=== PATIENT | male | born 1970 | race Caucasian/White ===

== ENCOUNTER 2018-03-26 00:20 | Inpatient (IN) | payer OTHER ==
[2018-03-26] MEDS ORDERED: PROPOFOL 1,000 MG in EMPTY BAG 1 BAG IV ONE (00:26)
[2018-03-26] MEDS ORDERED: ASPIRIN 300 MG SUPP RECTAL STA (00:29)
[2018-03-26] MEDS ORDERED: ROCURONIUM BROMIDE 10 MG/ML 10 ML VIAL IV STA (00:37)
[2018-03-26 00:53] LABS: Basophils % (A) 0 %; Eosinophils # (A) 0.1 k/uL (0-0.7); Eosinophils % (A) 1 %; HCT 44.6 % (39.0-53.0); HGB 14.3 gm/dL (13.0-17.5); Lymphocytes % (A) 23 %; MCH 27.8 pg (25.0-35.0); MCV 86.8 fL (80.0-100.0); Mean Platelet Volume 7.7; Monocytes # (A) 0.6 k/uL (0-1.0); Monocytes % (A) 5 %; Neutrophils # (A) 8.7 k/uL (1.3-7.7); Neutrophils % (A) 69 %; Platelet Count 231 k/uL (150-450); RBC 5.14 m/uL (4.30-5.90); RDW 13.5 % (11.5-15.5); WBC 12.6 k/uL (3.8-10.6)
[2018-03-26] MEDS ORDERED: HEPARIN SODIUM,PORCINE 5,000 UNIT/ML 1 ML VIAL IV STA (00:56)
[2018-03-26 01:01] LABS: INR 1.1 (<1.2); Partial Thromboplastin Time 23.2 sec (22.0-30.0); Prothrombin Time 10.7 sec (9.0-12.0)
[2018-03-26 01:08] LABS: ABG Base Excess -7.6 mmol/L; ABG HCO3 21 mmol/L (21-25); ABG Oxygen Saturation 94.5 % (94-97); ABG PCO2 57 mmHg (35-45); ABG PO2 89 mmHg (83-108); ABG TCO2 23 mmol/L (19-24)
[2018-03-26 01:10] LABS: ABG PH 7.17 (7.35-7.45)
[2018-03-26 01:10] LABS: Albumin 3.8 g/dL (3.5-5.0); Calcium 8.9 mg/dL (8.4-10.2); Potassium 4.3 mmol/L (3.5-5.1); Total Bilirubin 0.2 mg/dL (0.2-1.3); Total Protein 6.2 g/dL (6.3-8.2)
--- NOTE | 2018-03-26 01:18 | ED ---
CPR HPI - General Chief Complaint: Cardiac Arrest/CPR Stated Complaint: Cardiac Arrest Source: EMS Mode of arrival: EMS Limitations: no limitations - History of Present Illness Initial Comments: Dictation was produced using [employer] dictation software. please excuse any grammatical, word or spelling errors. Chief Complaint: 48-year-old male with unknown past medical history presents after cardiac arrest with return of spontaneous circulation. History of Present Illness: Patient is a 48-year-old male with unknown past medical history presents after cardiac arrest. Patient was en route via EMS from proximally one hour away. According to EMS patient had several minutes of down time. CPR was started by his . EMS arrived after a couple minutes and continued CPR. According to EMS patient was given 3 rounds of epi, 3 shocks and 1 dose of atropine. Patient did bradycardia down propping EMS to administer atropine. They didn't transvenously paced the patient. Patient was continued on Charlie device. Past Medical History: Unknown Past Surgical History: Unknown Social History: Unknown Family History: Unknown - Related Data Allergies Allergy/AdvReac Type Severity Reaction Status Date / Time Unable to Assess Allergy Verified 03/26/18 00:26 Review of Systems ROS Statement: Those systems with pertinent positive or pertinent negative responses have been documented in the HPI. ROS Other: All systems not noted in ROS Statement are negative. Past Medical History Past Medical History: Unable to Obtain History of Any Multi-Drug Resistant Organisms: Unobtainable Past Surgical History: Unable to Obtain Past Psychological History: Unable to Obtain Smoking Status: Unknown if ever smoked Past Alcohol Use History: Unable to Obtain Past Drug Use History: Unable to Obtain General Exam - General Exam Comments Initial Comments: Vitals: Vital signs upon arrival shows heart rate of 122, blood pressure 172/110 , O2 sat 99% with Valdo tube advanced airway. PHYSICAL EXAM: General Impression: Obtunded, agonal breathing HEENT: Normocephalic atraumatic, Valdo tube in place Cardiovascular: Tachycardic Chest: Bilateral breath sounds, with end expiratory wheezing Abdomen: Distended abdomen with tympany to percussion Musculoskeletal: Pulses present and equal in all extremities, no peripheral edema Neurological: Nondilated pupils Skin: Intact with no visualized rashes Limitations: no limitations Course Vital Signs 03/26/18 03/26/18 03/26/18 00:21 00:32 00:47 Temperature 97.0 F L Pulse Rate 130 H 122 H 125 H Respiratory 12 14 Rate Blood Pressure 207/147 172/110 138/86 O2 Sat by Pulse 95 99 99 Oximetry 03/26/18 03/26/18 03/26/18 00:53 00:57 01:08 Temperature Pulse Rate 121 H 120 H 118 H Respiratory 14 16 16 Rate Blood Pressure 119/66 120/80 116/81 O2 Sat by Pulse 94 L 99 95 Oximetry Procedures - Catheter Insertion (Urinary) Indications: monitor urine output - Intubation Time Out Performed: Yes Sedative: Propofol Mg Given: 100 Paralytic: Rocuronium Mg Given: 70 Laryngoscope: fiber optic video scope Size: 3 Assist Device Used: fiber optic device ET Tube Size: 8 ET Tube Uncuffed: No Tube Secured Depth (cm): 22 Tube Secured Location: lips Tube Placement Confirmation: visualized tube passing through cords, equal breath sounds bilaterally, no breath sounds over epigastrium, confirmation by capnometry Patient Tolerated Procedure: no complications Intubation Complications: none Medical Decision Making - Medical Decision Making ED course: 48-year-old male presents after cardiac arrest. Click or presentation consistent with V. fib arrest likely secondary to ST segment elevation [place]. Patient was resuscitated via ACLS protocol. Chest cutaneous pacer was removed patient was found to have spontaneous rhythm that was tachycardic. Stat EKG was performed showing inferior STEMI. Code STEMI and [place] was activated. Patient was given rectal aspirin. Valdo tube was removed and endotracheal intubation was performed. Discussed patient case with cardiology who recommended administering bolus heparin. More history was obtained from who states that patient had a couple seconds of down time before CPR was initiated by . Discussed plan with to take patient chronic [place] and subsequently place intensive care unit. EKG Interpretation: A 12 lead EKG was obtained. It was interpreted by myself and attending physician. There is a P wave before every QRS complex. Rate is 121. Rhythm is sinus tachycardia, ID interval 166, QRS 104, QTc 454. There is findings of inferior wall ST segment elevation [place]. Final impression: 1. Cardiac arrest, 2. Vent dependent respiratory failure, 3. ST segment elevation [place] - Lab Data Result diagrams: 03/26/18 00:20 03/26/18 00:20 Lab Results 03/26/18 03/26/18 03/26/18 Range/Units 00:20 00:20 00:20 WBC 12.6 H (3.8-10.6) k/uL RBC 5.14 (4.30-5.90) m/uL Hgb 14.3 (13.0-17.5) gm/dL Hct 44.6 (39.0-53.0) % MCV 86.8 (80.0-100.0) fL MCH 27.8 (25.0-35.0) pg MCHC 32.0 (31.0-37.0) g/dL RDW 13.5 (11.5-15.5) % Plt Count 231 (150-450) k/uL Neutrophils % 69 % Lymphocytes % 23 % Monocytes % 5 % Eosinophils % 1 % Basophils % 0 % Neutrophils # 8.7 H (1.3-7.7) k/uL Lymphocytes # 3.0 (1.0-4.8) k/uL Monocytes # 0.6 (0-1.0) k/uL Eosinophils # 0.1 (0-0.7) k/uL Basophils # 0.0 (0-0.2) k/uL PT (9.0-12.0) sec INR (<1.2) APTT (22.0-30.0) sec Sample Site ABG pH (7.35-7.45) ABG pCO2 (35-45) mmHg ABG pO2 (83-108) mmHg ABG HCO3 (21-25) mmol/L ABG Total CO2 (19-24) mmol/L ABG O2 Saturation (94-97) % ABG Base Excess mmol/L Mikey Test FiO2 % Sodium 140 (137-145) mmol/L Potassium 4.3 (3.5-5.1) mmol/L Chloride 104 (98-107) mmol/L Carbon Dioxide 18 L (22-30) mmol/L Anion Gap 18 mmol/L BUN 19 (9-20) mg/dL Creatinine 1.40 H (0.66-1.25) mg/dL Est GFR (CKD-EPI)AfAm 69 (>60 ml/min/1.73 sqM) Est GFR (CKD-EPI)NonAf 60 (>60 ml/min/1.73 sqM) Glucose 262 H (74-99) mg/dL Calcium 8.9 (8.4-10.2) mg/dL Total Bilirubin 0.2 (0.2-1.3) mg/dL AST 83 H (17-59) U/L ALT 79 H (21-72) U/L Alkaline Phosphatase 96 (38-126) U/L Total Creatine Kinase 374 H (55-170) U/L CK-MB (CK-2) 13.0 H* (0.0-2.4) ng/mL CK-MB (CK-2) Rel Index 3.5 Troponin I 0.959 H* (0.000-0.034) ng/mL Total Protein 6.2 L (6.3-8.2) g/dL Albumin 3.8 (3.5-5.0) g/dL 03/26/18 03/26/18 Range/Units 00:20 01:05 WBC (3.8-10.6) k/uL RBC (4.30-5.90) m/uL Hgb (13.0-17.5) gm/dL Hct (39.0-53.0) % MCV (80.0-100.0) fL MCH (25.0-35.0) pg MCHC (31.0-37.0) g/dL RDW (11.5-15.5) % Plt Count (150-450) k/uL Neutrophils % % Lymphocytes % % Monocytes % % Eosinophils % % Basophils % % Neutrophils # (1.3-7.7) k/uL Lymphocytes # (1.0-4.8) k/uL Monocytes # (0-1.0) k/uL Eosinophils # (0-0.7) k/uL Basophils # (0-0.2) k/uL PT 10.7 (9.0-12.0) sec INR 1.1 (<1.2) APTT 23.2 (22.0-30.0) sec Sample Site rrad ABG pH 7.17 L* (7.35-7.45) ABG pCO2 57 H (35-45) mmHg ABG pO2 89 (83-108) mmHg ABG HCO3 21 (21-25) mmol/L ABG Total CO2 23 (19-24) mmol/L ABG O2 Saturation 94.5 (94-97) % ABG Base Excess -7.6 mmol/L Mikey Test Yes FiO2 100 % Sodium (137-145) mmol/L Potassium (3.5-5.1) mmol/L Chloride (98-107) mmol/L Carbon Dioxide (22-30) mmol/L Anion Gap mmol/L BUN (9-20) mg/dL Creatinine (0.66-1.25) mg/dL Est GFR (CKD-EPI)AfAm (>60 ml/min/1.73 sqM) Est GFR (CKD-EPI)NonAf (>60 ml/min/1.73 sqM) Glucose (74-99) mg/dL Calcium (8.4-10.2) mg/dL Total Bilirubin (0.2-1.3) mg/dL AST (17-59) U/L ALT (21-72) U/L Alkaline Phosphatase (38-126) U/L Total Creatine Kinase (55-170) U/L CK-MB (CK-2) (0.0-2.4) ng/mL CK-MB (CK-2) Rel Index Troponin I (0.000-0.034) ng/mL Total Protein (6.3-8.2) g/dL Albumin (3.5-5.0) g/dL Critical Care Time Critical Care Time: Yes Total Critical Care Time: 31 Disposition Clinical Impression: Cardiac arrest, Acute myocardial infarction, Acute respiratory failure Disposition: ADMITTED IP TO THIS [facility] Condition: Critical Referrals: Tra Jeffrey DO [Primary Care Provider] - 1-2 days Decision Time: 01:40
--- NOTE | 2018-03-26 01:20 | XR ---
EXAMINATION TYPE: XR chest 1V portable DATE OF EXAM: 03/26/2018 COMPARISON: NONE HISTORY: Myocardial infarct TECHNIQUE: Single frontal view of the chest is obtained. FINDINGS: Endotracheal tube is in good position and 5 cm from the manny. There is poor inspiration. There is some mild infiltrate at the lateral left lung base. There is no definite heart failure. The re are chest leads. IMPRESSION: Poor inspiration. Infiltrate on the left side. No gross heart failure.
[2018-03-26] MEDS ORDERED: LIDOCAINE 1% INJ 10MG/ML (20 ML MDV) SQ ONE (01:28)
[2018-03-26 01:29] LABS: Troponin I 0.959 ng/mL (0.000-0.034)
[2018-03-26] MEDS ORDERED: IV FLUID CONTINUATION 1,000 ML IV ONE (01:34)
[2018-03-26] MEDS ORDERED: BIVALIRUDIN BOLUS 250 MG/50 ML IV ONE (01:42)
[2018-03-26] MEDS ORDERED: BIVALIRUDIN 250 MG in SODIUM CHLORIDE 0.9% 50 ML IV ONE (01:42)
[2018-03-26] MEDS ORDERED: IOPAMIDOL-370 125ML BTL INJ ONE (01:53)
[2018-03-26] MEDS ORDERED: NITROGLYCERIN 1000MCG/10ML SYRINGE INTRACORON ONE (01:55)
[2018-03-26] MEDS ORDERED: TICAGRELOR 90 MG TAB OG-TUBE ONE (02:15)
[2018-03-26] MEDS ORDERED: IOPAMIDOL-370 100ML BTL INJ ONE (02:16)
[2018-03-26] MEDS ORDERED: METOPROLOL TARTRATE 5 MG/5 ML VIAL IVP ONE (02:16)
[2018-03-26] MEDS ORDERED: RX INFO: IV CONTRAST WAS GIVEN 1 EACH MISC MISCELLANE PRN (02:41)
[2018-03-26] MEDS ORDERED: ZOLPIDEM 5 MG TAB PO PRN (02:41)
[2018-03-26] MEDS ORDERED: NITROGLYCERIN SL TABS 0.4 MG TAB SUBLINGUAL PRN (02:41)
[2018-03-26] MEDS ORDERED: ATROPINE SULFATE 0.1 MG/ML 10ML SYRINGE IV PRN (02:41)
[2018-03-26] MEDS ORDERED: MAG HYDROX/AL HYDROX/SIMETH 30 ML CUP PO PRN (02:41)
[2018-03-26 03:01] LABS: Glucose,Whole Blood 171 mg/dL (75-99)
[2018-03-26] MEDS ORDERED: NALOXONE 0.4 MG/ML 1 ML VIAL IV PRN (03:20)
[2018-03-26 03:24] LABS: ABG Base Excess -4.2 mmol/L; ABG HCO3 22 mmol/L (21-25); ABG Oxygen Saturation 99.6 % (94-97); ABG PCO2 45 mmHg (35-45); ABG PO2 194 mmHg (83-108); ABG TCO2 24 mmol/L (19-24)
[2018-03-26] MEDS: PROPOFOL 1,000 MG in EMPTY BAG 1 BAG IV SCH ×3 (04:31→21:34)
[2018-03-26] MEDS: SODIUM CHLORIDE 0.9% 1,000 ML IV SCH ×4 (04:31→17:17)
[2018-03-26 04:56] LABS: Appearance,Urine Cloudy (Clear); Bilirubin,Urine Negative (Negative); Blood,Urine Moderate (Negative); Color,Urine Light Yellow; Glucose,Urine (UA) 1+ (Negative); Ketones,Urine Negative (Negative); Leukocyte Esterase,Urine Negative (Negative); Mucus,Urine Rare /hpf; Nitrite,Urine Negative (Negative); PH, Urine 5.5 (5.0-8.0); Protein,Urine 2+ (Negative); RBC,Urine 30 /hpf (0-5); Specific Gravity,Urine 1.039 (1.001-1.035); Urobilinogen,Urine <2.0 mg/dL (<2.0); WBC,Urine 25 /hpf (0-5)
[2018-03-26 06:10] LABS: Basophils % (A) 0 %; Eosinophils % (A) 0 %; HCT 42.7 % (39.0-53.0); HGB 14.4 gm/dL (13.0-17.5); Lymphocytes # (A) 0.5 k/uL (1.0-4.8); Lymphocytes % (A) 3 %; MCH 28.8 pg (25.0-35.0); MCHC 33.8 g/dL (31.0-37.0); MCV 85.2 fL (80.0-100.0); Mean Platelet Volume 7.5; Monocytes # (A) 0.8 k/uL (0-1.0); Monocytes % (A) 5 %; Neutrophils % (A) 92 %; Platelet Count 224 k/uL (150-450); RBC 5.01 m/uL (4.30-5.90); RDW 13.6 % (11.5-15.5); WBC 17.5 k/uL (3.8-10.6)
[2018-03-26 06:20] LABS: Magnesium 2.2 mg/dL (1.6-2.3); Phosphorus 2.8 mg/dL (2.5-4.5); Potassium 4.8 mmol/L (3.5-5.1)
--- NOTE | 2018-03-26 06:45 | CONS ---
CONSULTATION CHIEF COMPLAINT: Cardiac arrest. This is 48-year-old gentleman with history of hypertension who had a cardiac arrest at home. His witnessed it, did CPR and I think he was down for almost 10 minutes. EMS came. He received epinephrine, was intubated, had intra-articular IV started. He also has an EJ. Brought to [facility] Emergency Room where he is intubated, vented, sedated. Remains in sinus rhythm. Blood pressure is around 110 systolic. EKG shows acute inferior wall myocardial infarction. We have been called for STEMI. I spoke to and got the information I could. MEDICATIONS: We do not know what he is on. ALLERGIES: None. FAMILY HISTORY: Negative. SOCIAL HISTORY AND REVIEW OF SYSTEMS: Unable to obtain from the patient. EXAM: He is intubated on vent, sedated. We are not able to make meaningful neurological assessment at this time. Heart rate is around 110 beats per minute. Blood pressure is 120/70, respirations 18. Chest exam reveals diminished air entry bilaterally. Heart exam reveals first and second heart sounds. No gallop. No murmur. Abdomen is soft. Exam of the extremities did not reveal any edema. EKG shows acute ST-segment elevation NM in the inferior wall. ASSESSMENT: Acute inferior wall myocardial infarction with cardiac arrest. PLAN: Will perform emergent cardiac catheterization. The patient had been down for at least 10 minutes. It is unclear how much of in the hypoxic encephalopathy he has suffered off. I discussed these issues at length with the patient and the patient's and she is agreeable to proceeding with angiogram and primary angioplasty. MMODL / IJN: [id number] /
--- NOTE | 2018-03-26 06:51 | PTCA ---
PERCUTANEOUSTRANS CORORONARY ANGIOGRAPHY DATE OF SERVICE: 03/26/2018. PROCEDURE: 1. Assessment of left ventricular pressures. LVEDP was 15, with no gradient across Aortic Valve. 2. PTCA and stenting of a totally occluded right coronary artery performed in the setting of an acute inferior SC with syncope collapse and CPR. Two drug- eluting stents were deployed. Re-perfusion was accomplished in 82 minutes. PERFORMED BY: Dr. Nirmala Meza. SEDATION: Moderate conscious sedation time was 37 minutes. Patient was administered propofol, placed on the ventilator. He was additionally given sedation and his oxygen saturation, hemodynamics and EKG were monitored closely. CLINICAL INFORMATION: Mr. Akira Pollard is a 48-year-old gentleman who has a fairly active person, does not take any medications. Sees a family physician in the [place] area. Apparently has hyperlipidemia, but has not been taking medicines as advised. He does not take any medications. For the last 24 to 36 hours he was not feeling well. He played some golf today, came back home, felt exhausted, tired, and he was driving with his daughter next to him. Finally came home and tried Goggling to find out if his symptoms were cardiac or not. He felt they were not cardiac symptom. Then he collapsed in the kitchen and his called 911, started CPR and he had immediate attention and the down time was probably about [address] Martinez evaluated the patient, performed a cardiac cath which revealed moderate disease in the circumflex and ramus without significant disease in the LAD system, but RCA was totally occluded in the distal portion before bifurcation. He was advised intervention that was performed expeditiously from the right femoral approach. PROCEDURE NOTE: The existing 6-Belgian introducer in the right femoral artery was used to perform the procedure. A standard right Cruz guide catheter was used to cannulate the right coronary artery. A run-through wire was used to cross the lesion. Wire was kept distally. I dilated the total occlusion with a 2.5 caliber 12 mm long Trek balloon and 2 to 3 inflations were given. Subsequently I deployed 2 stents. The distal stent was a 2.5 caliber 18 mm long stent and the proximal stent was a 2.75 caliber 23 mm long stent. Excellent angiographic result was achieved with a ABRAM-3 flow. The patient had improvement but not total resolution of his ST elevation in inferior leads. He remained hemodynamically stable. The sheath was then taken out and a Perclose device used to secure hemostasis and as a precaution FemoStop was applied for 2-1/2 hours. The patient received Angiomax bolus and infusion as per protocol. He also received Brilinta 180 mg as per protocol. He was on a vent with a propofol drip, hemodynamically stable, oxygen saturation throughout the procedure was good. His urine output was also fairly decent. He was sent to the ICU in a hemodynamically stable condition. Findings were discussed at length with patient's family, his and mother. Patient's neurological status is too early to make a determination, but from a hemodynamics standpoint and cardiac standpoint, he had an excellent angiographic result with reperfusion that was accomplished in about 82 minutes. Excellent angiographic result without complication was achieved. Patient has some moderate disease in the circumflex system. He was sent to the ICU in a stable condition. Prognosis however remains guarded. MMNIKI / IJN: [id number] / MTDD
--- NOTE | 2018-03-26 08:53 | XR ---
EXAMINATION TYPE: XR chest 1V DATE OF EXAM: 03/26/2018 COMPARISON: 03/26/2018 HISTORY: Abnormal x-ray TECHNIQUE: Single frontal view of the chest is obtained. FINDINGS: ET tube is pulled back to the thoracic inlet. NG tube is seen coursing into the abdomen. Bilateral lower lobe infiltrate and small effusion. No pneumothorax. Heart size stable. IMPRESSION: 1. Bilateral infiltrate and small effusion stable. 2. NG tube appears in good position. 3. Correlate for ET tube placement as discussed above.
--- NOTE | 2018-03-26 09:00 | PN ---
PROGRESS NOTE This is a 48-year-old gentleman who was admitted to hospital with cardiac arrest secondary to acute inferior wall myocardial infarction. Underwent emergent cardiac catheterization and angioplasty of the right coronary artery. He also has significant disease involving the circumflex coronary artery and ramus intermedius. This morning he still does not have any meaningful activity. It is unclear how much of hypoxic encephalopathy he suffered. PHYSICAL EXAMINATION: On exam, heart rate is 75 beats per minute. Blood pressure is 110/70. Respiratory rate is 18. Chest exam reveals good air entry bilaterally. Heart exam reveals first and second heart sounds. No gallop. No murmur. Abdomen is soft, nontender. Examination of extremities did not reveal any edema. Peripheral pulses are felt. LABS: Labs show a hemoglobin of 14.4. Potassium is 4.8. Creatinine is 1.2. Troponin is 11.6. ASSESSMENT: Acute inferior wall myocardial infarction with cardiac arrest, status post catheterization and angioplasty of right coronary artery. The patient is on optimal medical therapy with aspirin, Cozaar, Lopressor, Lipitor and Brilinta. His prognosis is guarded. MMODL / IJN: [id number] /
[2018-03-26] MEDS: METOPROLOL TARTRATE 12.5 MG TAB PO SCH ×2 (09:15→21:34)
[2018-03-26] MEDS: LOSARTAN 25 MG TAB PO SCH (09:16)
--- NOTE | 2018-03-26 09:23 | P.CNPUL ---
History of Present Illness Consult date: 03/26/18 Reason for consult: other Chief complaint: Out of hospital cardiac arrest History of present illness: Pulmonary consult dated 03/26/2018 This is a 48-year-old male with a history of hyperlipidemia, hypertension, sleep apnea, and obesity, who is not very compliant in terms of visiting his physician, who apparently had an [id number] cardiac arrest. He apparently collapsed left-sided home at about 11:00 PM. Apparently his provided initial CPR. EMS was called. He apparently was intubated out in the field. He apparently was shocked 3 times received atropine and epinephrine 3. He was resuscitated with return of spontaneous circulation. The. Of pulmonary resuscitation was in excess of 30 minutes and maybe more like 45 minutes. I the patient eventually went into the [facility]. Coronary arteriography revealed complete obstruction of the right coronary artery and the patient had received 2 stents in the right coronary artery. He was brought back to the ICU on the mechanical ventilator after midnight on March 26. I Vertie spoken to his mother. The patient is not row good about taking care of himself. The patient is not a heavy drinker or smoker. He does work very hard and does a lot of heavy lifting and so forth. Anyway, the patient is not row good about visiting the doctor and mom was even sure that he was taking his medications as prescribed and not using his CPAP device as required. Currently, he's on the volume assist control mode with a rate of 20, tidal volume 550, FiO2 60% with a PEEP of 5. Arterial blood gases show a PaO2 of 194 PaCO2 of 45 and pH is 7.30. These blood gases are consistent with hyperoxemia and a very mild respiratory acidosis. That was on 100%. Since that time, the FiO2 was reduced to 60%. In addition, I'll make 2 additional changes by dropping the time of I'm down from 550 to 450 and increase the rate from 20-to 26. The patient is getting saline IV at 100 mL an hour and propofol at 30 mics per kilogram per minute. His past medical history as mentioned above includes hypertension, hyperlipidemia, sleep apnea syndrome, and obesity. Review of Systems ROS unobtainable: due to endotracheal tube Past Medical History Past Medical History: Unable to Obtain History of Any Multi-Drug Resistant Organisms: Unobtainable Past Surgical History: Unable to Obtain Additional Past Surgical History / Comment(s): Right shoulder rotator cuff surgery 07/29/2016 Past Anesthesia/Blood Transfusion Reactions: No Reported Reaction Past Psychological History: Unable to Obtain Smoking Status: Unknown if ever smoked Past Alcohol Use History: Unable to Obtain Past Drug Use History: Unable to Obtain - Past Family History Brother(s) Family Medical History: Myocardial Infarction ([place]) Mother Family Medical History: Hypertension, Osteoarthritis (OA) Father Additional Family Medical History / Comment(s): bipolar Medications and Allergies Home Medications Medication Instructions Recorded Confirmed Type Pravastatin Sodium [Pravachol] 20 mg PO HS 03/26/18 03/26/18 History Allergies Allergy/AdvReac Type Severity Reaction Status Date / Time No Known Allergies Allergy Unverified 03/26/18 08:48 Physical Exam Osteopathic Statement: *. No significant issues noted on an osteopathic structural exam other than those noted in the History and Physical/Consult. Vitals: Vital Signs Temp Pulse Pulse Resp BP BP Pulse Ox 03/26/18 09:00 86 159/104 100 03/26/18 08:30 80 26 H 148/100 99 03/26/18 08:00 97.9 F 81 109/77 99 03/26/18 07:30 73 106/70 99 03/26/18 07:00 74 20 109/71 99 03/26/18 06:30 75 20 158/106 98 03/26/18 06:00 98 F 86 20 147/99 99 03/26/18 05:30 84 20 114/90 99 03/26/18 05:00 77 20 117/86 99 03/26/18 04:30 77 20 117/79 98 03/26/18 04:00 96.8 F L 80 20 99/81 99 03/26/18 03:30 74 20 89/73 99 03/26/18 03:00 95.8 F L 82 20 103/77 99 03/26/18 01:35 95.8 F L 81 20 105/72 100 03/26/18 01:08 118 H 16 116/81 95 03/26/18 00:57 120 H 16 120/80 99 03/26/18 00:53 121 H 14 119/66 94 L 03/26/18 00:47 125 H 14 138/86 99 03/26/18 00:32 122 H 172/110 99 03/26/18 00:21 97.0 F L 130 H 12 207/147 95 Intake and Output 03/25/18 03/26/18 03/26/18 22:59 06:59 14:59 Intake Total 645.567 369.058 Output Total 575 215 Balance 70.567 154.058 Intake: IV 645 300 Sodium Chloride 0.9% 1, 400 300 000 ml @ 100 mls/hr IV . Q10H [facility] Rx#:[id number] Intake, IV Titration 0.567 69.058 Amount Propofol 1,000 mg In 0.567 Empty Bag 1 bag @ Titrate IV .Q0M ONE Rx#: [id number] Propofol 1,000 mg In 69.058 Empty Bag 1 bag @ Titrate IV .Q0M [facility] Rx#: [id number] Output: Urine 575 215 Other: Voiding Method Indwelling Catheter # Bowel Movements 2 Weight 119.5 kg Currently intubated with an NG tube and endotracheal tube in place, sedated, and nonresponsive verbally. HEENT examination is grossly unremarkable. Mucous membranes are moist. No oral lesions. Pupils large and minimally reactive. Minimal corneal reflex noted. Neck supple. Full range of motion. No adenopathy thyromegaly or neck vein distention. Cardiovascular examination reveals regular rhythm rate. S1-S2 normal. No S3 or S4. No discernible murmur noted. Lungs reveal clear breath sounds. Her sounds are equal bilaterally. No adventitious lung sounds including wheezes rhonchi or crackles. Abdomen soft bowel sounds are heard. No masses or tenderness. Extremities are intact. No cyanosis clubbing or edema. Skin is without rash or lesion. Neurologic examination is difficult to evaluate. The patient does not respond to verbal or painful stimuli. He does have a gag reflex. He does trigger the ventilator. Corneal reflex is poor. Pupils are large and sluggishly reactive. He has an absent doll's eyes reflex. Results - Laboratory Findings CBC and BMP: 03/26/18 05:52 03/26/18 05:52 ABG ABG pH 7.30 (7.35-7.45) L 03/26/18 03:22 ABG pCO2 45 mmHg (35-45) 03/26/18 03:22 ABG pO2 194 mmHg (83-108) H 03/26/18 03:22 ABG O2 Saturation 99.6 % (94-97) H 03/26/18 03:22 PT/INR, D-dimer PT 10.7 sec (9.0-12.0) 03/26/18 00:20 INR 1.1 (<1.2) 03/26/18 00:20 Abnormal lab findings: Abnormal Labs 03/26/18 03/26/18 03/26/18 00:20 00:20 00:20 WBC 12.6 H Neutrophils # 8.7 H Lymphocytes # ABG pH ABG pCO2 ABG pO2 ABG O2 Saturation Chloride Carbon Dioxide 18 L BUN Creatinine 1.40 H Glucose 262 H POC Glucose (mg/dL) AST 83 H ALT 79 H Total Creatine Kinase 374 H CK-MB (CK-2) 13.0 H* Troponin I 0.959 H* Total Protein 6.2 L Ur Specific Wilson Urine Protein Urine Glucose (UA) Urine Blood Urine RBC Urine WBC Urine Mucus 03/26/18 03/26/18 03/26/18 01:05 02:48 03:22 WBC Neutrophils # Lymphocytes # ABG pH 7.17 L* 7.30 L ABG pCO2 57 H ABG pO2 194 H ABG O2 Saturation 99.6 H Chloride Carbon Dioxide BUN Creatinine Glucose POC Glucose (mg/dL) 171 H AST ALT Total Creatine Kinase CK-MB (CK-2) Troponin I Total Protein Ur Specific Wilson Urine Protein Urine Glucose (UA) Urine Blood Urine RBC Urine WBC Urine Mucus 03/26/18 03/26/18 03/26/18 03:30 05:52 05:52 WBC 17.5 H Neutrophils # 16.0 H Lymphocytes # 0.5 L ABG pH ABG pCO2 ABG pO2 ABG O2 Saturation Chloride 108 H Carbon Dioxide 21 L BUN 22 H Creatinine Glucose 152 H POC Glucose (mg/dL) AST ALT Total Creatine Kinase CK-MB (CK-2) Troponin I Total Protein Ur Specific Wilson 1.039 H Urine Protein 2+ H Urine Glucose (UA) 1+ H Urine Blood Moderate H Urine RBC 30 H Urine WBC 25 H Urine Mucus Rare H 03/26/18 05:52 WBC Neutrophils # Lymphocytes # ABG pH ABG pCO2 ABG pO2 ABG O2 Saturation Chloride Carbon Dioxide BUN Creatinine Glucose POC Glucose (mg/dL) AST ALT Total Creatine Kinase CK-MB (CK-2) Troponin I 11.600 H* Total Protein Ur Specific Wilson Urine Protein Urine Glucose (UA) Urine Blood Urine RBC Urine WBC Urine Mucus - Diagnostic Findings Chest x-ray: report reviewed, image reviewed CT scan - chest: report reviewed (Labs x-rays a medications are reviewed.), image reviewed Assessment and Plan Assessment: Assessment Out of hospital cardiopulmonary arrest with cardiopulmonary resuscitation and return of spontaneous circulation, rule out anoxic brain injury Inferior wall ST segment elevation myocardial infarction. Status post coronary arteriography and 2 stents placed in the right coronary artery Anoxic/metabolic encephalopathy History of hypertension History of hyperlipidemia Sleep apnea syndrome Obesity. Noncompliance with medical care and/or medication/CPAP Plan: Plan dated 03/26/2018 Currently, the patient is receiving supportive care with mechanical ventilation. The patient some medications labs and x-rays are all reviewed. I had a long talk with the patient's mother. This is obviously very sad situation a lot will depend on whether or not there is any significant neurologic recovery. The resuscitation time was quite long of about 45 minutes or so. The patient did have an ST segment elevation myocardial infarction involving the inferior wall. 2 stents were placed by cardiology and the right coronary artery. Currently is on mechanical ventilator. I had the nurse stop the propofol. We'll have a neurology consult done. He'll need a EEG. Additional recommendations and suggestions are forthcoming. Time with Patient: Greater than 30
[2018-03-26] MEDS: ASPIRIN 81 MG PO SCH (10:25)
[2018-03-26] MEDS: CHLORHEXIDINE GLUCONATE 15 ML CUP MUCOUS MEM SCH ×2 (10:25→21:33)
[2018-03-26] MEDS: TICAGRELOR 90 MG TAB PO SCH ×2 (10:25→21:34)
[2018-03-26] MEDS: PANTOPRAZOLE 40 MG/10 ML VIAL IV SCH (10:25)
[2018-03-26] MEDS: HEPARIN SODIUM,PORCINE 5,000 UNIT/ML 1 ML VIAL SQ SCH ×2 (10:25→17:16)
--- NOTE | 2018-03-26 10:34 | ECHOF ---
Referral Reason:Acute Inf NM and RCA PCI MEASUREMENTS -------- HEIGHT: 182.9 cm WEIGHT: 113.4 kg BP: 159/104 IVSd: 1.2 cm (0.6 - 1.1) LVIDd: 4.7 cm (3.9 - 5.3) LVPWd: 1.3 cm (0.6 - 1.1) IVSs: 1.6 cm LVIDs: 3.8 cm LVPWs: 1.3 cm Ao Diam: 4.1 cm (2.0 - 3.7) AV Cusp: 2.6 cm (1.5 - 2.6) LA Diam: 3.0 cm (2.7 - 3.8) MV EXCURSION: 14.924 mm (> 18.000) MV EF SLOPE: 77 mm/s (70 - 150) EPSS: 1.5 cm MV E Breezy: 0.56 m/s MV DecT: 190 ms MV A Breezy: 0.50 m/s MV E/A Ratio: 1.13 RAP: 5.00 mmHg RVSP: 15.95 mmHg FINDINGS -------- Sinus rhythm. Pt. on a vent. The left ventricular size is normal. There is mild concentric left ventricular hypertrophy. Overa ll left ventricular systolic function is mildly impaired with, an EF between 45 - 50 %. Mid to basa l inferiorlateral is hypokinetic The right ventricle is normal in size and function. The left atrium is normal in size. The right atrium is normal in size. The aortic valve is trileaflet, and appears structurally normal. No aortic stenosis or regurgitation. The mitral valve leaflets are mildly thickened. There is trace mitral regurgitation. Trace tricuspid regurgitation present. The right ventricular systolic pressure, as measured by Dopp ler, is 15.95mmHg. Pulmonic valve appears structurally normal. The aortic root is dilated measuring 4.1 cm The pericardium is normal. CONCLUSIONS -------- 1. Sinus rhythm. 2. Pt. on a vent. 3. The left ventricular size is normal. 4. There is mild concentric left ventricular hypertrophy. 5. Mid to basal inferiorlateral is hypokinetic 6. The right ventricle is normal in size and function. 7. The left atrium is normal in size. 8. The right atrium is normal in size. 9. The aortic valve is trileaflet, and appears structurally normal. No aortic stenosis or regurgitati on. 10. The mitral valve leaflets are mildly thickened. 11. There is trace mitral regurgitation. 12. Trace tricuspid regurgitation present. 13. The right ventricular systolic pressure, as measured by Doppler, is 15.95mmHg. 14. Pulmonic valve appears structurally normal. 15. The aortic root is dilated measuring 4.1 cm 16. The pericardium is normal. CREDIT PROCESSOR: Aury Kerr RDCS
[2018-03-26] MEDS: IPRATROPIUM-ALBUTEROL 3 ML NEB INHALATION SCH ×4 (11:34→23:14)
[2018-03-26] MEDS ORDERED: CISATRACURIUM 2 MG/ML 5 ML VIAL IV ONE ×2 (11:48→11:50)
[2018-03-26] MEDS ORDERED: HYDROmorphone 0.5 MG/0.5 ML SYRINGE IVP STA (11:50)
--- NOTE | 2018-03-26 13:33 | CC ---
CARDIAC CATHETERIZATION REPORT INDICATION: Acute inferior wall myocardial infarction with cardiac arrest. PROCEDURE NOTE: After obtaining informed consent, cardiac catheterization was performed via the right femoral artery using standard Cruz catheters. The patient tolerated the procedure well without any obvious immediate complications. The patient was intubated and sedated following his cardiac arrest. The patient received sedation and total sedation time was minutes. FINDINGS: 1. HEMODYNAMICS: Left ventricular end-diastolic pressure was 15 without significant gradient across the aortic valve. 2. LEFT VENTRICULOGRAM: Left ventriculogram is not performed. 3. ANGIOGRAPHIC DATA: Left main coronary artery: Left main coronary artery is a normal-sized vessel, divides into left anterior descending coronary artery, ramus intermedius and circumflex coronary artery. LAD shows mild nonobstructive disease. The ramus intermedius has a 70% lesion. Circumflex coronary artery has a 70% to 80% focal lesion. Right coronary artery is totally occluded in its mid mid portion. CONCLUSIONS: 1. Acutely occluded right coronary artery. 2. Severe disease involving ramus intermedius and circumflex coronary artery. PLAN: The patient's myocardial infarction is related to the lesion in the right coronary artery. He will undergo angioplasty with stent placement of the same. MMODL / IJN: [id number] /
--- NOTE | 2018-03-26 13:37 | P.HPIM ---
History of Present Illness 48-year-old male admitted after cardiopulmonary asked that her home secondary to myocardial infarction involving right coronary artery disease stenting of the vessel. Patient before the EMS was arrived was resuscitated for about 10- 15 minutes and patient initial rhythm was probably V. tach followed by severe bradycardia. Patient was almost gone about 40 minutes before they're able to bring him back to sinus rhythm. Patient is presently intubated not sedated is pointing to painful stimuli not breathing over the ventilator but does have gag reflex sluggish pupillary reflexes. Patient received couple stents to RCA. Review of Systems Unable to obtain Past Medical History Past Medical History: Unable to Obtain History of Any Multi-Drug Resistant Organisms: Unobtainable Past Surgical History: Unable to Obtain Additional Past Surgical History / Comment(s): Right shoulder rotator cuff surgery 07/29/2016 Past Anesthesia/Blood Transfusion Reactions: No Reported Reaction Past Psychological History: Unable to Obtain Smoking Status: Unknown if ever smoked Past Alcohol Use History: Unable to Obtain Past Drug Use History: Unable to Obtain - Past Family History Brother(s) Family Medical History: Myocardial Infarction ([place]) Mother Family Medical History: Hypertension, Osteoarthritis (OA) Father Additional Family Medical History / Comment(s): bipolar Medications and Allergies Home Medications Medication Instructions Recorded Confirmed Type Pravastatin Sodium [Pravachol] 20 mg PO HS 03/26/18 03/26/18 History Allergies Allergy/AdvReac Type Severity Reaction Status Date / Time No Known Allergies Allergy Unverified 03/26/18 08:48 Physical Exam Vitals: Vital Signs Temp Pulse Pulse Resp BP BP Pulse Ox 03/26/18 12:15 86 0 L 140/76 97 03/26/18 12:00 110 H 7 L 97 03/26/18 11:45 114 H 39 H 198/100 98 03/26/18 11:30 64 9 L 151/88 100 03/26/18 11:15 80 16 148/79 100 03/26/18 11:00 91 20 148/79 99 03/26/18 10:30 88 7 L 147/93 99 03/26/18 10:00 87 10 L 145/81 100 03/26/18 09:30 100 16 159/104 97 03/26/18 09:00 86 159/104 100 03/26/18 08:30 80 26 H 148/100 99 03/26/18 08:00 97.9 F 81 109/77 99 03/26/18 07:30 73 106/70 99 03/26/18 07:00 74 20 109/71 99 03/26/18 06:30 75 20 158/106 98 03/26/18 06:00 98 F 86 20 147/99 99 03/26/18 05:30 84 20 114/90 99 03/26/18 05:00 77 20 117/86 99 03/26/18 04:30 77 20 117/79 98 03/26/18 04:00 96.8 F L 80 20 99/81 99 03/26/18 03:30 74 20 89/73 99 03/26/18 03:00 95.8 F L 82 20 103/77 99 03/26/18 01:35 95.8 F L 81 20 105/72 100 03/26/18 01:08 118 H 16 116/81 95 03/26/18 00:57 120 H 16 120/80 99 03/26/18 00:53 121 H 14 119/66 94 L 03/26/18 00:47 125 H 14 138/86 99 03/26/18 00:32 122 H 172/110 99 03/26/18 00:21 97.0 F L 130 H 12 207/147 95 Intake and Output 03/25/18 03/26/18 03/26/18 22:59 06:59 14:59 Intake Total 645.567 669.058 Output Total 575 600 Balance 70.567 69.058 Intake: IV 645 600 Sodium Chloride 0.9% 1, 400 600 000 ml @ 100 mls/hr IV . Q10H [facility] Rx#:[id number] Intake, IV Titration 0.567 69.058 Amount Propofol 1,000 mg In 0.567 Empty Bag 1 bag @ Titrate IV .Q0M [facility] Rx#: [id number] Propofol 1,000 mg In 69.058 Empty Bag 1 bag @ Titrate IV .Q0M [facility] Rx#: [id number] Output: Urine 575 600 Other: Voiding Method Indwelling Catheter # Bowel Movements 2 Weight 119.5 kg PHYSICAL EXAMINATION: GENERAL: Patient is intubated not sedated, obese HEENT: Pupils are round and equally reacting to light. EOMI. No scleral icterus. No conjunctival pallor. Normocephalic, atraumatic. No pharyngeal erythema. No thyromegaly. CARDIOVASCULAR: S1 and S2 present. No murmurs, rubs, or gallops. PULMONARY: Chest is clear to auscultation, no wheezing or crackles. ABDOMEN: Soft, nontender, nondistended, normoactive bowel sounds. No palpable organomegaly. MUSCULOSKELETAL: No joint swelling or deformity. EXTREMITIES: No cyanosis, clubbing, or pedal edema. NEUROLOGICAL: As mentioned in HPI SKIN: No rashes. Results CBC & Chem 7: 03/26/18 05:52 03/26/18 05:52 Labs: Abnormal Lab Results - Last 24 Hours (Table) 03/26/18 03/26/18 03/26/18 Range/Units 00:20 00:20 00:20 WBC 12.6 H (3.8-10.6) k/uL Neutrophils # 8.7 H (1.3-7.7) k/uL Lymphocytes # (1.0-4.8) k/uL ABG pH (7.35-7.45) ABG pCO2 (35-45) mmHg ABG pO2 (83-108) mmHg ABG O2 Saturation (94-97) % Chloride (98-107) mmol/L Carbon Dioxide 18 L (22-30) mmol/L BUN (9-20) mg/dL Creatinine 1.40 H (0.66-1.25) mg/dL Glucose 262 H (74-99) mg/dL POC Glucose (mg/dL) (75-99) mg/dL AST 83 H (17-59) U/L ALT 79 H (21-72) U/L Total Creatine Kinase 374 H (55-170) U/L CK-MB (CK-2) 13.0 H* (0.0-2.4) ng/mL Troponin I 0.959 H* (0.000-0.034) ng/mL Total Protein 6.2 L (6.3-8.2) g/dL Ur Specific Ruby (1.001-1.035) Urine Protein (Negative) Urine Glucose (UA) (Negative) Urine Blood (Negative) Urine RBC (0-5) /hpf Urine WBC (0-5) /hpf Urine Mucus (None) /hpf 03/26/18 03/26/18 03/26/18 Range/Units 01:05 02:48 03:22 WBC (3.8-10.6) k/uL Neutrophils # (1.3-7.7) k/uL Lymphocytes # (1.0-4.8) k/uL ABG pH 7.17 L* 7.30 L (7.35-7.45) ABG pCO2 57 H (35-45) mmHg ABG pO2 194 H (83-108) mmHg ABG O2 Saturation 99.6 H (94-97) % Chloride (98-107) mmol/L Carbon Dioxide (22-30) mmol/L BUN (9-20) mg/dL Creatinine (0.66-1.25) mg/dL Glucose (74-99) mg/dL POC Glucose (mg/dL) 171 H (75-99) mg/dL AST (17-59) U/L ALT (21-72) U/L Total Creatine Kinase (55-170) U/L CK-MB (CK-2) (0.0-2.4) ng/mL Troponin I (0.000-0.034) ng/mL Total Protein (6.3-8.2) g/dL Ur Specific Ruby (1.001-1.035) Urine Protein (Negative) Urine Glucose (UA) (Negative) Urine Blood (Negative) Urine RBC (0-5) /hpf Urine WBC (0-5) /hpf Urine Mucus (None) /hpf 03/26/18 03/26/18 03/26/18 Range/Units 03:30 05:52 05:52 WBC 17.5 H (3.8-10.6) k/uL Neutrophils # 16.0 H (1.3-7.7) k/uL Lymphocytes # 0.5 L (1.0-4.8) k/uL ABG pH (7.35-7.45) ABG pCO2 (35-45) mmHg ABG pO2 (83-108) mmHg ABG O2 Saturation (94-97) % Chloride 108 H (98-107) mmol/L Carbon Dioxide 21 L (22-30) mmol/L BUN 22 H (9-20) mg/dL Creatinine (0.66-1.25) mg/dL Glucose 152 H (74-99) mg/dL POC Glucose (mg/dL) (75-99) mg/dL AST (17-59) U/L ALT (21-72) U/L Total Creatine Kinase (55-170) U/L CK-MB (CK-2) (0.0-2.4) ng/mL Troponin I (0.000-0.034) ng/mL Total Protein (6.3-8.2) g/dL Ur Specific Ruby 1.039 H (1.001-1.035) Urine Protein 2+ H (Negative) Urine Glucose (UA) 1+ H (Negative) Urine Blood Moderate H (Negative) Urine RBC 30 H (0-5) /hpf Urine WBC 25 H (0-5) /hpf Urine Mucus Rare H (None) /hpf 03/26/18 Range/Units 05:52 WBC (3.8-10.6) k/uL Neutrophils # (1.3-7.7) k/uL Lymphocytes # (1.0-4.8) k/uL ABG pH (7.35-7.45) ABG pCO2 (35-45) mmHg ABG pO2 (83-108) mmHg ABG O2 Saturation (94-97) % Chloride (98-107) mmol/L Carbon Dioxide (22-30) mmol/L BUN (9-20) mg/dL Creatinine (0.66-1.25) mg/dL Glucose (74-99) mg/dL POC Glucose (mg/dL) (75-99) mg/dL AST (17-59) U/L ALT (21-72) U/L Total Creatine Kinase (55-170) U/L CK-MB (CK-2) (0.0-2.4) ng/mL Troponin I 11.600 H* (0.000-0.034) ng/mL Total Protein (6.3-8.2) g/dL Ur Specific Ruby (1.001-1.035) Urine Protein (Negative) Urine Glucose (UA) (Negative) Urine Blood (Negative) Urine RBC (0-5) /hpf Urine WBC (0-5) /hpf Urine Mucus (None) /hpf Microbiology - Last 24 Hours (Table) 03/26/18 03:30 Urine Culture - Preliminary Urine,Catheterized Thrombosis Risk Factor Assmnt - Choose All That Apply Any of the Below Risk Factors Present?: Yes Each Factor Represents 1 point: Age 41-60 years, Medical pt on bed rest, Obesity (BMI >25) Thrombosis Risk Factor Assessment Total Risk Factor Score: 3 Thrombosis Risk Factor Assessment Level: Moderate Risk Assessment and Plan Plan: -Cardia pulmonary arrest is secondary to myocardial infarction involving right coronary artery with the possibility of some anoxic brain injury, we will continue with respiratory support, and it continue to hold off on sedation, monitor closely neurology consultation and EEG. -Inferior wall ST elevation myocardial infarction: Status post cardiac catheterization patient is on dual antiplatelet therapy beta inna at this time -Anoxic encephalopathy -Acute renal failure secondary to myocardial infarction -Hypertension -Hyperlipidemia -Sleep apnea -Wasting Continue with supportive mechanical ventilation closely monitored and neurological consultation as mentioned above.
--- NOTE | 2018-03-26 17:58 | P.CONS ---
History of Present Illness - Reason for Consult Consult date: 03/26/18 Assess for anoxic brain injury - Chief Complaint Unresponsiveness - History of Present Illness This is a 48-year-old male evaluated by the neurology service in the [facility] intensive care unit. He came to the [facility] emergency room via EMS. He collapsed at home and CPR was done by family member in his home for about 10-15 minutes. When EMS arrived he was found to be in V. tach and severe bradycardia. Downtime was about 40-45 minutes before bringing him back to sinus rhythm. He did undergo cardiac catheterization and stenting. He has been intubated and sedated in the ICU. He was brought off sedation for short period and was a little agitated so he is now back on partial sedation. An EEG has been performed. CT of the brain has been ordered. Review of Systems All systems: negative Past Medical History Past Medical History: Unable to Obtain History of Any Multi-Drug Resistant Organisms: Unobtainable Past Surgical History: Unable to Obtain Additional Past Surgical History / Comment(s): Right shoulder rotator cuff surgery 07/29/2016 Past Anesthesia/Blood Transfusion Reactions: No Reported Reaction Past Psychological History: Unable to Obtain Smoking Status: Unknown if ever smoked Past Alcohol Use History: Unable to Obtain Past Drug Use History: Unable to Obtain - Past Family History Brother(s) Family Medical History: Myocardial Infarction ([place]) Mother Family Medical History: Hypertension, Osteoarthritis (OA) Father Additional Family Medical History / Comment(s): bipolar Medications and Allergies Home Medications Medication Instructions Recorded Confirmed Type Pravastatin Sodium [Pravachol] 20 mg PO HS 03/26/18 03/26/18 History Allergies Allergy/AdvReac Type Severity Reaction Status Date / Time No Known Allergies Allergy Unverified 03/26/18 08:48 Physical Exam Vitals: Vital Signs Temp Pulse Pulse Resp BP BP Pulse Ox 03/26/18 17:00 71 26 H 148/82 99 03/26/18 16:30 82 26 H 145/90 100 03/26/18 16:00 97.5 F L 71 26 H 141/86 100 03/26/18 15:33 68 03/26/18 15:30 69 26 H 119/74 100 03/26/18 15:20 66 03/26/18 15:00 66 26 H 115/72 100 07/06/18 14:30 67 26 H 113/71 99 18 14:00 71 128/81 97 18 13:30 73 128/78 96 03/26/18 13:00 80 24 141/82 97 18 12:30 79 124/76 98 03/26/18 12:15 86 0 L 140/76 97 03/26/18 12:00 110 H 7 L 97 03/26/18 11:45 114 H 39 H 198/100 98 03/26/18 11:30 64 9 L 151/88 100 03/26/18 11:15 80 16 148/79 100 03/26/18 11:00 91 20 148/79 99 03/26/18 10:30 88 7 L 147/93 99 03/26/18 10:00 87 10 L 145/81 100 18 09:30 100 16 159/104 97 03/26/18 09:00 86 159/104 100 03/26/18 08:30 80 26 H 148/100 99 03/26/18 08:00 97.9 F 81 109/77 99 0618 07:30 73 106/70 99 03/26/18 07:00 74 20 109/71 99 18 06:30 75 20 158/106 98 06 06:00 98 F 86 20 147/99 99 0618 05:30 84 20 114/90 99 03/26/18 05:00 77 20 117/86 99 18 04:30 77 20 117/79 98 06 04:00 96.8 F L 80 20 99/81 99 0618 03:30 74 20 89/73 99 0618 03:00 95.8 F L 82 20 103/77 99 0618 01:35 95.8 F L 81 20 105/72 100 18 01:08 118 H 16 116/81 95 0618 00:57 120 H 16 120/80 99 18 00:53 121 H 14 119/66 94 L 070618 00:47 125 H 14 138/86 99 03/26/18 00:32 122 H 172/110 99 03/26/18 00:21 97.0 F L 130 H 12 207/147 95 Intake and Output 03/26/18 03/26/18 03/26/18 06:59 14:59 22:59 Intake Total 645.567 869.058 253.441 Output Total 575 675 135 Balance 70.567 194.058 118.441 Intake: IV 645 800 225 Sodium Chloride 0.9% 1, 400 800 225 000 ml @ 100 mls/hr IV . Q10H [facility] Rx#:[id number] Intake, IV Titration 0.567 69.058 28.441 Amount Propofol 1,000 mg In 0.567 Empty Bag 1 bag @ Titrate IV .Q0M [facility] Rx#: [id number] Propofol 1,000 mg In 69.058 28.441 Empty Bag 1 bag @ Titrate IV .Q0M [facility] Rx#: [id number] Output: Urine 575 675 135 Other: Voiding Method Indwelling Catheter Indwelling Catheter # Bowel Movements 2 Weight 119.5 kg 119.5 kg - Constitutional General appearance: obese - EENT Dilated bilaterally and minimally responsive Eyes: abnormal pupil - Neck Neck: no rigidity - Respiratory On ventilator Respiratory: negative: prolonged expiration, prolonged inspiration - Cardiovascular Rhythm: regular - Gastrointestinal General gastrointestinal: no distended - Neurologic The patient is intubated and partially sedated in the ICU. He has no purposeful movements. He does wince and retract to some elements of my exam. He has no response to painful stimuli of the lower extremities. There is some minimal spontaneous movement of the upper extremities with no lateralization seen. There is no facial asymmetry. Corneal reflexes minimal. Oculocephalic reflexes abnormal. Gag reflex is intact. Pupils are dilated bilaterally and minimally responsive to direct light. No reaction to Babinski reflex maneuver. Results CBC & Chem 7: 03/26/18 05:52 03/26/18 05:52 Labs: Abnormal Lab Results - Last 24 Hours (Table) 03/26/18 03/26/18 03/26/18 Range/Units 00:20 00:20 00:20 WBC 12.6 H (3.8-10.6) k/uL Neutrophils # 8.7 H (1.3-7.7) k/uL Lymphocytes # (1.0-4.8) k/uL ABG pH (7.35-7.45) ABG pCO2 (35-45) mmHg ABG pO2 (83-108) mmHg ABG O2 Saturation (94-97) % Chloride (98-107) mmol/L Carbon Dioxide 18 L (22-30) mmol/L BUN (9-20) mg/dL Creatinine 1.40 H (0.66-1.25) mg/dL Glucose 262 H (74-99) mg/dL POC Glucose (mg/dL) (75-99) mg/dL AST 83 H (17-59) U/L ALT 79 H (21-72) U/L Total Creatine Kinase 374 H (55-170) U/L CK-MB (CK-2) 13.0 H* (0.0-2.4) ng/mL Troponin I 0.959 H* (0.000-0.034) ng/mL Total Protein 6.2 L (6.3-8.2) g/dL Ur Specific [place] (1.001-1.035) Urine Protein (Negative) Urine Glucose (UA) (Negative) Urine Blood (Negative) Urine RBC (0-5) /hpf Urine WBC (0-5) /hpf Urine Mucus (None) /hpf 03/26/18 03/26/18 03/26/18 Range/Units 01:05 02:48 03:22 WBC (3.8-10.6) k/uL Neutrophils # (1.3-7.7) k/uL Lymphocytes # (1.0-4.8) k/uL ABG pH 7.17 L* 7.30 L (7.35-7.45) ABG pCO2 57 H (35-45) mmHg ABG pO2 194 H (83-108) mmHg ABG O2 Saturation 99.6 H (94-97) % Chloride (98-107) mmol/L Carbon Dioxide (22-30) mmol/L BUN (9-20) mg/dL Creatinine (0.66-1.25) mg/dL Glucose (74-99) mg/dL POC Glucose (mg/dL) 171 H (75-99) mg/dL AST (17-59) U/L ALT (21-72) U/L Total Creatine Kinase (55-170) U/L CK-MB (CK-2) (0.0-2.4) ng/mL Troponin I (0.000-0.034) ng/mL Total Protein (6.3-8.2) g/dL Ur Specific [place] (1.001-1.035) Urine Protein (Negative) Urine Glucose (UA) (Negative) Urine Blood (Negative) Urine RBC (0-5) /hpf Urine WBC (0-5) /hpf Urine Mucus (None) /hpf 03/26/18 03/26/18 03/26/18 Range/Units 03:30 05:52 05:52 WBC 17.5 H (3.8-10.6) k/uL Neutrophils # 16.0 H (1.3-7.7) k/uL Lymphocytes # 0.5 L (1.0-4.8) k/uL ABG pH (7.35-7.45) ABG pCO2 (35-45) mmHg ABG pO2 (83-108) mmHg ABG O2 Saturation (94-97) % Chloride 108 H (98-107) mmol/L Carbon Dioxide 21 L (22-30) mmol/L BUN 22 H (9-20) mg/dL Creatinine (0.66-1.25) mg/dL Glucose 152 H (74-99) mg/dL POC Glucose (mg/dL) (75-99) mg/dL AST (17-59) U/L ALT (21-72) U/L Total Creatine Kinase (55-170) U/L CK-MB (CK-2) (0.0-2.4) ng/mL Troponin I (0.000-0.034) ng/mL Total Protein (6.3-8.2) g/dL Ur Specific [place] 1.039 H (1.001-1.035) Urine Protein 2+ H (Negative) Urine Glucose (UA) 1+ H (Negative) Urine Blood Moderate H (Negative) Urine RBC 30 H (0-5) /hpf Urine WBC 25 H (0-5) /hpf Urine Mucus Rare H (None) /hpf 03/26/18 03/26/18 Range/Units 05:52 14:11 WBC (3.8-10.6) k/uL Neutrophils # (1.3-7.7) k/uL Lymphocytes # (1.0-4.8) k/uL ABG pH (7.35-7.45) ABG pCO2 (35-45) mmHg ABG pO2 (83-108) mmHg ABG O2 Saturation (94-97) % Chloride (98-107) mmol/L Carbon Dioxide (22-30) mmol/L BUN (9-20) mg/dL Creatinine (0.66-1.25) mg/dL Glucose (74-99) mg/dL POC Glucose (mg/dL) (75-99) mg/dL AST (17-59) U/L ALT (21-72) U/L Total Creatine Kinase (55-170) U/L CK-MB (CK-2) (0.0-2.4) ng/mL Troponin I 11.600 H* 23.300 H* (0.000-0.034) ng/mL Total Protein (6.3-8.2) g/dL Ur Specific [place] (1.001-1.035) Urine Protein (Negative) Urine Glucose (UA) (Negative) Urine Blood (Negative) Urine RBC (0-5) /hpf Urine WBC (0-5) /hpf Urine Mucus (None) /hpf Microbiology - Last 24 Hours (Table) 03/26/18 03:30 Urine Culture - Preliminary Urine,Catheterized Assessment and Plan (1) Encephalopathy acute Current Visit: Yes Status: Acute Code(s): G93.40 - ENCEPHALOPATHY, UNSPECIFIED SNOMED Code(s): 96981601 (2) Acute myocardial infarction Current Visit: Yes Status: Acute Code(s): I21.9 - ACUTE MYOCARDIAL INFARCTION, UNSPECIFIED SNOMED Code(s): 74316318 (3) Acute respiratory failure Current Visit: Yes Status: Acute Code(s): J96.00 - ACUTE RESPIRATORY FAILURE , UNSP W HYPOXIA OR HYPERCAPNIA SNOMED Code(s): 78780061 (4) Cardiac arrest Current Visit: Yes Status: Acute Code(s): I46.9 - CARDIAC ARREST, CAUSE UNSPECIFIED SNOMED Code(s): 324917617 (5) Hypertension Current Visit: Yes Status: Chronic Code(s): I10 - ESSENTIAL (PRIMARY) HYPERTENSION SNOMED Code(s): 31074309 (6) Hyperlipidemia Current Visit: Yes Status: Chronic Code(s): E78.5 - HYPERLIPIDEMIA, UNSPECIFIED SNOMED Code(s): 03037765 (7) Obstructive sleep apnea Current Visit: Yes Status: Chronic Code(s): G47.33 - OBSTRUCTIVE SLEEP APNEA (ADULT) (PEDIATRIC) SNOMED Code(s): 78415104 (8) Obesity Current Visit: Yes Status: Chronic Code(s): E66.9 - OBESITY, UNSPECIFIED SNOMED Code(s): 626905906 Plan: Patient is getting supportive care in the ICU with mechanical ventilation and partial sedation. With his extended down time there is certainly concern for anoxic brain injury. As above an EEG has been performed and we will be evaluating this result soon. A CT of the brain has been ordered. Continue following with cardiology and pulmonology. Continue supportive care. His prognosis is extremely guarded. I have performed a history and physical on the above patient. I have reviewed the above note, and agree.
--- NOTE | 2018-03-26 20:19 | CT ---
EXAMINATION TYPE: CT brain wo con DATE OF EXAM: 03/26/2018 COMPARISON: None HISTORY: R/O stroke weakness CT DLP: 866.6 mGycm. Automated Exposure Control for Dose Reduction was Utilized. TECHNIQUE: CT scan of the head is performed without contrast. FINDINGS: Ventricles and sulci appear normal. There is no mass effect nor midline shift. There is n o sign of intracranial hemorrhage. There is no evidence of cerebral edema. Calvarium is intact. There is debris in the posterior nasopharynx. IMPRESSION: Normal CT scan of the brain.
[2018-03-26] MEDS: ATORVASTATIN 80 MG TAB PO SCH (21:34)
[2018-03-27] MEDS: HYDROmorphone 0.5 MG/0.5 ML SYRINGE IVP PRN (00:13)
[2018-03-27] MEDS: HEPARIN SODIUM,PORCINE 5,000 UNIT/ML 1 ML VIAL SQ SCH ×3 (00:13→16:42)
[2018-03-27] MEDS: IPRATROPIUM-ALBUTEROL 3 ML NEB INHALATION SCH ×6 (03:32→23:29)
[2018-03-27 04:40] LABS: Basophils % (A) 0 %; Eosinophils % (A) 0 %; HCT 39.6 % (39.0-53.0); Lymphocytes # (A) 0.7 k/uL (1.0-4.8); Lymphocytes % (A) 5 %; MCH 28.8 pg (25.0-35.0); MCHC 32.8 g/dL (31.0-37.0); MCV 87.8 fL (80.0-100.0); Mean Platelet Volume 7.4; Monocytes # (A) 0.8 k/uL (0-1.0); Monocytes % (A) 6 %; Neutrophils # (A) 11.4 k/uL (1.3-7.7); Neutrophils % (A) 87 %; Platelet Count 199 k/uL (150-450); RBC 4.51 m/uL (4.30-5.90); RDW 14.4 % (11.5-15.5); WBC 13.2 k/uL (3.8-10.6)
[2018-03-27 04:49] LABS: Calcium 8.7 mg/dL (8.4-10.2); Phosphorus 3.2 mg/dL (2.5-4.5); Potassium 4.1 mmol/L (3.5-5.1)
[2018-03-27 05:07] LABS: ABG Base Excess 0.2 mmol/L; ABG HCO3 25 mmol/L (21-25); ABG Oxygen Saturation 97.9 % (94-97); ABG PCO2 38 mmHg (35-45); ABG PH 7.42 (7.35-7.45); ABG PO2 90 mmHg (83-108); ABG TCO2 26 mmol/L (19-24)
[2018-03-27] MEDS: PROPOFOL 1,000 MG in EMPTY BAG 1 BAG IV SCH ×2 (06:23→20:08)
--- NOTE | 2018-03-27 07:02 | XR ---
EXAMINATION TYPE: XR chest 1V DATE OF EXAM: 03/27/2018 HISTORY: vent management. REFERENCE: Previous study dated 03/26/2018. FINDINGS: The patient is ET tube has been advanced and is now in good position with its tip approxima tely 4.4 cm above the manny. An NG tube is in place and unchanged in appearance. The heart is mildly enlarged. There is left basilar airspace disease. This has worsened slightly. I s uspect a small left effusion. IMPRESSION: WORSENING LEFT BASILAR AIRSPACE DISEASE EITHER REPRESENTING ATELECTASIS OR PNEUMONIA.
--- NOTE | 2018-03-27 08:02 | P.PN ---
Subjective Progress Note Date: 03/27/18 Principal diagnosis: Acute coronary syndrome This is a pleasant 48-year-old gentleman who unfortunately had a cardiac arrest at home with a downtime of about 45 minutes. The patient was brought back to normal sinus rhythm and was brought to the emergency room where he underwent an emergent heart catheterization and was found to have occluded right coronary artery which was opened and stented and also severe disease involving the ramus intermedius. Unfortunately there is question regarding anoxic encephalopathy. Neurology was consulted and EEG was performed. Hemodynamically he is slightly hypotensive and tachycardic. I would increase the dose of metoprolol to 25 mg by mouth twice a day. Beside that he is on dual antiplatelet therapy along with high intensity statin. The echocardiogram revealed mildly impaired LV function with EF around 45%. Currently the patient is intubated and he is on ventilator. The sedation was showed down earlier today. Objective - Vital Signs Vital signs: Vital Signs Temp 98.3 F 03/27/18 04:00 Pulse 87 03/27/18 07:32 Resp 26 H 03/27/18 07:00 BP 135/75 03/27/18 07:00 Pulse Ox 100 03/27/18 07:00 Intake & Output 03/26/18 03/27/18 03/27/18 18:59 06:59 18:59 Intake Total 9238.145 1790.513 Output Total 850 650 Balance 347.499 542.513 Weight 119.5 kg 119.7 kg Intake: IV 1100 975 Sodium Chloride 0.9% 1, 1100 75 000 ml @ 100 mls/hr IV . Q10H [facility] Rx#:[id number] Sodium Chloride 0.9% 1, 900 000 ml @ 75 mls/hr IV . [id number] [facility] Rx#:[id number] Intake, IV Titration 97.499 157.513 Amount Propofol 1,000 mg In 97.499 157.513 Empty Bag 1 bag @ Titrate IV .Q0M [facility] Rx#: [id number] Oral 60 Output: Gastric Drainage 75 Urine 850 575 Other: Voiding Method Indwelling Catheter Indwelling Catheter # Bowel Movements 2 - Constitutional General appearance: Present: no acute distress - Respiratory Respiratory: bilateral: CTA - Cardiovascular Rhythm: regular Heart sounds: normal: S1, S2 - Labs CBC & Chem 7: 03/27/18 04:20 03/27/18 04:20 Labs: Abnormal Lab Results - Last 24 Hours (Table) 03/26/18 03/26/18 03/27/18 Range/Units 14:11 22:21 04:20 WBC 13.2 H (3.8-10.6) k/uL Neutrophils # 11.4 H (1.3-7.7) k/uL Lymphocytes # 0.7 L (1.0-4.8) k/uL ABG Total CO2 (19-24) mmol/L ABG O2 Saturation (94-97) % Glucose (74-99) mg/dL Troponin I 23.300 H* 33.700 H* (0.000-0.034) ng/mL 03/27/18 03/27/18 Range/Units 04:20 04:56 WBC (3.8-10.6) k/uL Neutrophils # (1.3-7.7) k/uL Lymphocytes # (1.0-4.8) k/uL ABG Total CO2 26 H (19-24) mmol/L ABG O2 Saturation 97.9 H (94-97) % Glucose 114 H (74-99) mg/dL Troponin I (0.000-0.034) ng/mL Microbiology - Last 24 Hours (Table) 03/26/18 03:30 Urine Culture - Preliminary Urine,Catheterized Assessment and Plan Assessment: Assessment #1 cardiac arrest #2 acute respiratory failure #[address] elevation [place] #4 possible anoxic encephalopathy Plan #1 increase the dose of metoprolol for better blood pressure and heart rate control #2 continue dual antiplatelet therapy along with a statin #3 the echocardiogram was reviewed and revealed mildly impaired LV function #4 follow-up with the patient. Unfortunately there is question regarding anoxic encephalopathy.
[2018-03-27] MEDS: LOSARTAN 25 MG TAB PO SCH (08:26)
[2018-03-27] MEDS: PANTOPRAZOLE 40 MG/10 ML VIAL IV SCH (08:26)
[2018-03-27] MEDS: ASPIRIN 81 MG PO SCH (08:27)
[2018-03-27] MEDS: TICAGRELOR 90 MG TAB PO SCH ×2 (08:27→20:08)
[2018-03-27] MEDS: CHLORHEXIDINE GLUCONATE 15 ML CUP MUCOUS MEM SCH ×2 (08:27→20:07)
[2018-03-27] MEDS: METOPROLOL TARTRATE 25 MG TAB PO SCH ×2 (08:30→20:07)
--- NOTE | 2018-03-27 08:33 | P.PN ---
Subjective Progress Note Date: 03/27/18 Principal diagnosis: Out of hospital cardiac arrest, anoxic brain injury Progress note dated 03/27/2018 48-year-old male with a history of hyperlipidemia hypertension sleep apnea syndrome. He also has a history of obesity. The patient had an out-of- hospital cardiac arrest and had a prolonged resuscitation.. The patient's resuscitation was initially chest compressions by his and finally EMS arrived. The entire resuscitative time was about 45 minutes or so. Anyway, the patient currently is likely suffering from anoxic brain injury. Computed tomography scan of brain was done. He was seen by neurology. 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 EKG just showed inferior wall ST segment elevation myocardial infarction. Unfortunately, the patient's mental status is poor. Does not respond to verbal or painful stimuli. He does have some brain stem reflexes. He is currently on the ventilator. I was hoping for some improvement neurologically today but I'm not seeing that. I did explain all this to the mother and to the yesterday. Currently, he's on the volume assist control mode, rate is 26, tidal volume 450, FiO2 40% and PEEP of 5. Arterial blood gases show a PaO2 of 90 PaCO2 of 38 and pH of 7.42. The patient's getting propofol at 10 mics per kilogram per minute saline IV at 75 mL an hour. Tube feeds have not yet been started. We'll make sure the nurses to start them. We will also have to do something about the patient's blood pressure. Chest x-ray shows worsening left basilar airspace disease. CAT scan of the brain was normal. EEG has not yet been officially read. White count 13.2 hemoglobin and hematocrit and platelet count all normal. Sodium potassium chloride CO2 BUN/creatinine all normal. Troponins were 11.6, 23.3, and 33.7. Cortisol was 51. Microbiology is negative. The patient's currently on losartan and metoprolol for blood pressure control. Objective - Vital Signs Vital signs: Vital Signs Temp 98.3 F 03/27/18 04:00 Pulse 88 03/27/18 07:45 Resp 26 H 03/27/18 07:00 BP 135/75 03/27/18 07:00 Pulse Ox 100 03/27/18 07:00 Intake & Output 03/26/18 03/27/18 03/27/18 18:59 06:59 18:59 Intake Total 9695.040 4762.513 10.411 Output Total 850 650 Balance 347.499 542.513 10.411 Weight 119.5 kg 119.7 kg Intake: IV 1100 975 Sodium Chloride 0.9% 1, 1100 75 000 ml @ 100 mls/hr IV . Q10H [facility] Rx#:[id number] Sodium Chloride 0.9% 1, 900 000 ml @ 75 mls/hr IV . [id number] [facility] Rx#:[id number] Intake, IV Titration 97.499 157.513 10.411 Amount Propofol 1,000 mg In 97.499 157.513 10.411 Empty Bag 1 bag @ Titrate IV .Q0M [facility] Rx#: [id number] Oral 60 Output: Gastric Drainage 75 Urine 850 575 Other: Voiding Method Indwelling Catheter Indwelling Catheter # Bowel Movements 2 - Exam No acute distress, nonresponsive, with an orally placed endotracheal tube and NG tube.. HEENT examination is grossly unremarkable. Mucous membranes are moist. No oral lesions. Pupils are dilated and sluggish. Neck supple. Full range of motion. No adenopathy thyromegaly or neck vein distention. Cardiovascular examination reveals regular rhythm rate. S1-S2 normal. No S3 or S4. No discernible murmur noted. Lungs reveal mostly clear. A few scattered rhonchi noted. Breath sounds equal bilaterally. Abdomen soft bowel sounds are heard. No masses or tenderness. Extremities are intact. No cyanosis clubbing or edema. Skin is without rash or lesion. Neurologic examination is unchanged. He does trigger the ventilator. He does have a gag reflex. No response to verbal or painful stimuli. Pupils are dilated and sluggish. A very minimal corneal reflex. - Labs CBC & Chem 7: 03/27/18 04:20 03/27/18 04:20 Labs: Abnormal Lab Results - Last 24 Hours (Table) 03/26/18 03/26/18 03/27/18 Range/Units 14:11 22:21 04:20 WBC 13.2 H (3.8-10.6) k/uL Neutrophils # 11.4 H (1.3-7.7) k/uL Lymphocytes # 0.7 L (1.0-4.8) k/uL ABG Total CO2 (19-24) mmol/L ABG O2 Saturation (94-97) % Glucose (74-99) mg/dL Troponin I 23.300 H* 33.700 H* (0.000-0.034) ng/mL 03/27/18 03/27/18 Range/Units 04:20 04:56 WBC (3.8-10.6) k/uL Neutrophils # (1.3-7.7) k/uL Lymphocytes # (1.0-4.8) k/uL ABG Total CO2 26 H (19-24) mmol/L ABG O2 Saturation 97.9 H (94-97) % Glucose 114 H (74-99) mg/dL Troponin I (0.000-0.034) ng/mL Microbiology - Last 24 Hours (Table) 03/26/18 03:30 Urine Culture - Preliminary Urine,Catheterized Assessment and Plan Assessment: Assessment Out of hospital cardiopulmonary arrest with cardiopulmonary resuscitation and return of spontaneous circulation, rule out anoxic brain injury Inferior wall ST segment elevation myocardial infarction. Status post coronary arteriography and 2 stents placed in the right coronary artery Anoxic/metabolic encephalopathy History of hypertension History of hyperlipidemia Sleep apnea syndrome Obesity. Noncompliance with medical care and/or medication/CPAP Plan: Plan dated 03/26/2018 Currently, the patient is receiving supportive care with mechanical ventilation. The patient some medications labs and x-rays are all reviewed. I had a long talk with the patient's mother. This is obviously very sad situation a lot will depend on whether or not there is any significant neurologic recovery. The resuscitation time was quite long of about 45 minutes or so. The patient did have an ST segment elevation myocardial infarction involving the inferior wall. 2 stents were placed by cardiology and the right coronary artery. Currently is on mechanical ventilator. I had the nurse stop the propofol. We'll have a neurology consult done. He'll need a EEG. Additional recommendations and suggestions are forthcoming. Plan dated 03/27/2018 Prognosis is poor. The patient has shown no neurologic improvement. The patient's propofol be held. We'll make sure we start the patient on tube feeds. No changes in the ventilator settings. Lab data looks all within normal range. He is on losartan and metoprolol for blood pressure support. He is status post coronary arteriography with 2 stents placed in the right coronary artery. He did suffer an ST segment elevation myocardial infarction. Prognosis is very poor. I've explained all that to the family. We'll await input by neurology. EEG is currently pending. Critical care time 36 minutes Time with Patient: Greater than 30
--- NOTE | 2018-03-27 12:30 | P.PN ---
Subjective Progress Note Date: 03/27/18 Principal diagnosis: Unresponsiveness This is a 48-year-old male continue be evaluated by the neurology service in the [facility] intensive care unit. Recall that he had an extended down time with extended CPR done. He went directly to cardiac catheterization and stenting. He has since been in the ICU intubated and sedated. They've tried off sedation twice now and he becomes quite agitated is bucking the ventilator. His CT of the brain showed no abnormalities. An EEG did show moderate to severe encephalopathy. Objective - Vital Signs Vital signs: Vital Signs Temp 99.0 F 03/27/18 08:00 Pulse 77 03/27/18 11:20 Resp 29 H 03/27/18 11:00 BP 125/83 03/27/18 11:00 Pulse Ox 99 03/27/18 11:00 Intake & Output 03/26/18 03/27/18 03/27/18 18:59 06:59 18:59 Intake Total 7974.562 8791.513 310.411 Output Total 850 650 290 Balance 347.499 542.513 20.411 Weight 119.5 kg 119.7 kg 119.7 kg Intake: IV 1100 975 300 Sodium Chloride 0.9% 1, 1100 75 000 ml @ 100 mls/hr IV . Q10H JANAE Rx#:[id number] Sodium Chloride 0.9% 1, 900 300 000 ml @ 75 mls/hr IV . [id number] JANAE Rx#:[id number] Intake, IV Titration 97.499 157.513 10.411 Amount Propofol 1,000 mg In 97.499 157.513 10.411 Empty Bag 1 bag @ Titrate IV .Q0M JANAE Rx#: [id number] Oral 60 Output: Gastric Drainage 75 Urine 850 575 290 Other: Voiding Method Indwelling Catheter Indwelling Catheter Indwelling Catheter # Bowel Movements 2 - Constitutional Constitutional Comment(s): Intubated and sedated in the ICU General appearance: Present: obese - EENT EENT Comment(s): Right pupil is reactive to light and no longer persistently dilated. Left Pupil is less reactive. - Neck Neck: Absent: rigidity - Respiratory Details: Mechanically ventilated Respiratory: negative: prolonged expiration, prolonged inspiration - Cardiovascular Rhythm: regular - Gastrointestinal General gastrointestinal: Absent: distended - Neurologic Neurologic Comment(s): Corneal reflexes intact. Gag reflex is intact. Babinski is downgoing on the right and unequivocal on the left. Oculocephalic reflexes intact. Does not respond to painful stimuli. During my exam today there is no spontaneous movement. He does have facial grimacing with head manipulation, and there is no facial asymmetry noted. - Labs CBC & Chem 7: 03/27/18 04:20 03/27/18 04:20 Labs: Abnormal Lab Results - Last 24 Hours (Table) 03/26/18 03/26/18 03/27/18 Range/Units 14:11 22:21 04:20 WBC 13.2 H (3.8-10.6) k/uL Neutrophils # 11.4 H (1.3-7.7) k/uL Lymphocytes # 0.7 L (1.0-4.8) k/uL ABG Total CO2 (19-24) mmol/L ABG O2 Saturation (94-97) % Glucose (74-99) mg/dL Troponin I 23.300 H* 33.700 H* (0.000-0.034) ng/mL 03/27/18 03/27/18 Range/Units 04:20 04:56 WBC (3.8-10.6) k/uL Neutrophils # (1.3-7.7) k/uL Lymphocytes # (1.0-4.8) k/uL ABG Total CO2 26 H (19-24) mmol/L ABG O2 Saturation 97.9 H (94-97) % Glucose 114 H (74-99) mg/dL Troponin I (0.000-0.034) ng/mL Microbiology - Last 24 Hours (Table) 03/26/18 03:30 Urine Culture - Preliminary Urine,Catheterized Assessment and Plan (1) Encephalopathy acute Current Visit: Yes Status: Acute Code(s): G93.40 - ENCEPHALOPATHY, UNSPECIFIED SNOMED Code(s): 02469752 (2) Acute myocardial infarction Current Visit: Yes Status: Acute Code(s): I21.9 - ACUTE MYOCARDIAL INFARCTION, UNSPECIFIED SNOMED Code(s): 70758584 (3) Acute respiratory failure Current Visit: Yes Status: Acute Code(s): J96.00 - ACUTE RESPIRATORY FAILURE , UNSP W HYPOXIA OR HYPERCAPNIA SNOMED Code(s): 21471922 (4) Cardiac arrest Current Visit: Yes Status: Acute Code(s): I46.9 - CARDIAC ARREST, CAUSE UNSPECIFIED SNOMED Code(s): 336690513 (5) Hypertension Current Visit: Yes Status: Chronic Code(s): I10 - ESSENTIAL (PRIMARY) HYPERTENSION SNOMED Code(s): 57107652 (6) Hyperlipidemia Current Visit: Yes Status: Chronic Code(s): E78.5 - HYPERLIPIDEMIA, UNSPECIFIED SNOMED Code(s): 35742728 (7) Obstructive sleep apnea Current Visit: Yes Status: Chronic Code(s): G47.33 - OBSTRUCTIVE SLEEP APNEA (ADULT) (PEDIATRIC) SNOMED Code(s): 22856599 (8) Obesity Current Visit: Yes Status: Chronic Code(s): E66.9 - OBESITY, UNSPECIFIED SNOMED Code(s): 715626025 Plan: Patient is getting supportive care in the ICU with mechanical ventilation and partial sedation. With his extended down time there is certainly concern for anoxic brain injury. As above his EEG showed moderate to severe encephalopathy. A CT of the brain was normal. Continue following with cardiology and pulmonology. Continue supportive care. His prognosis is poor. I have performed a history and physical on the above patient. I have reviewed the above note, and agree.
[2018-03-27 14:42] LABS: Glucose,Whole Blood 230 mg/dL (75-99)
[2018-03-27] MEDS: SODIUM CHLORIDE 0.9% 1,000 ML IV SCH (20:07)
[2018-03-27] MEDS: ATORVASTATIN 80 MG TAB PO SCH (20:07)
[2018-03-28] MEDS: HEPARIN SODIUM,PORCINE 5,000 UNIT/ML 1 ML VIAL SQ SCH ×3 (00:50→15:57)
[2018-03-28] MEDS: IPRATROPIUM-ALBUTEROL 3 ML NEB INHALATION SCH ×6 (03:14→22:59)
[2018-03-28 04:43] LABS: ABG Base Excess 1.8 mmol/L; ABG HCO3 26 mmol/L (21-25); ABG Oxygen Saturation 98.8 % (94-97); ABG PCO2 38 mmHg (35-45); ABG PH 7.44 (7.35-7.45); ABG PO2 107 mmHg (83-108); ABG TCO2 27 mmol/L (19-24)
[2018-03-28 04:48] LABS: Basophils % (A) 0 %; Eosinophils % (A) 0 %; HGB 11.7 gm/dL (13.0-17.5); Lymphocytes # (A) 0.8 k/uL (1.0-4.8); Lymphocytes % (A) 7 %; MCHC 32.5 g/dL (31.0-37.0); MCV 86.4 fL (80.0-100.0); Mean Platelet Volume 7.5; Monocytes # (A) 0.9 k/uL (0-1.0); Monocytes % (A) 7 %; Neutrophils % (A) 85 %; Platelet Count 193 k/uL (150-450); RBC 4.17 m/uL (4.30-5.90); WBC 11.8 k/uL (3.8-10.6)
[2018-03-28 05:05] LABS: Anion Gap 7 mmol/L; Blood Urea Nitrogen 20 mg/dL (9-20); Calcium 8.8 mg/dL (8.4-10.2); Carbon Dioxide 27 mmol/L (22-30); Chloride 107 mmol/L (98-107); Glucose 111 mg/dL (74-99); Magnesium 2.1 mg/dL (1.6-2.3); Phosphorus 2.4 mg/dL (2.5-4.5); Potassium 4.1 mmol/L (3.5-5.1); Sodium 141 mmol/L (137-145)
--- NOTE | 2018-03-28 06:41 | XR ---
EXAMINATION TYPE: XR chest 1V DATE OF EXAM: 03/28/2018 HISTORY: vent management. REFERENCE: Previous study dated 03/27/2018. FINDINGS: The patient is ET tube and NG tube remain in place, unchanged in appearance. There continues be left basilar airspace disease. There is a small left effusion. There has been no s ignificant interval change. IMPRESSION: NO SIGNIFICANT INTERVAL CHANGE IN APPEARANCE OF THE CHEST.
[2018-03-28] MEDS: SODIUM CHLORIDE 0.9% 1,000 ML IV SCH ×2 (08:12→20:48)
[2018-03-28] MEDS: PANTOPRAZOLE 40 MG/10 ML VIAL IV SCH (08:13)
[2018-03-28] MEDS: TICAGRELOR 90 MG TAB PO SCH ×2 (08:13→21:13)
[2018-03-28] MEDS: LOSARTAN 25 MG TAB PO SCH (08:14)
[2018-03-28] MEDS: METOPROLOL TARTRATE 25 MG TAB PO SCH ×2 (08:14→20:48)
[2018-03-28] MEDS: CHLORHEXIDINE GLUCONATE 15 ML CUP MUCOUS MEM SCH ×2 (08:14→20:48)
[2018-03-28] MEDS: ASPIRIN 81 MG PO SCH (08:14)
--- NOTE | 2018-03-28 10:03 | P.PN ---
Subjective Progress Note Date: 03/28/18 Principal diagnosis: Out of hospital cardiac arrest, anoxic brain injury Progress note dated 03/27/2018 48-year-old male with a history of hyperlipidemia hypertension sleep apnea syndrome. He also has a history of obesity. The patient had an out-of- hospital cardiac arrest and had a prolonged resuscitation.. The patient's resuscitation was initially chest compressions by his and finally EMS arrived. The entire resuscitative time was about 45 minutes or so. Anyway, the patient currently is likely suffering from anoxic brain injury. Computed tomography scan of brain was done. He was seen by neurology. 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 EKG just showed inferior wall ST segment elevation myocardial infarction. Unfortunately, the patient's mental status is poor. Does not respond to verbal or painful stimuli. He does have some brain stem reflexes. He is currently on the ventilator. I was hoping for some improvement neurologically today but I'm not seeing that. I did explain all this to the mother and to the yesterday. Currently, he's on the volume assist control mode, rate is 26, tidal volume 450, FiO2 40% and PEEP of 5. Arterial blood gases show a PaO2 of 90 PaCO2 of 38 and pH of 7.42. The patient's getting propofol at 10 mics per kilogram per minute saline IV at 75 mL an hour. Tube feeds have not yet been started. We'll make sure the nurses to start them. We will also have to do something about the patient's blood pressure. Chest x-ray shows worsening left basilar airspace disease. CAT scan of the brain was normal. EEG has not yet been officially read. White count 13.2 hemoglobin and hematocrit and platelet count all normal. Sodium potassium chloride CO2 BUN/creatinine all normal. Troponins were 11.6, 23.3, and 33.7. Cortisol was 51. Microbiology is negative. The patient's currently on losartan and metoprolol for blood pressure control. Progress note dated 03/28/2018 48-year-old male with history of hyperlipidemia, hypertension, sleep apnea syndrome. He also has a history of obesity. He had an [id number] cardiopulmonary arrest with prolonged resuscitation time of 40 minutes. The patient here in the ICU really has not shown much of any response other than some basic brainstem reflexes. 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 EKG just did show evidence of inferior wall ST segment elevation myocardial infarction. The patient has shown no neurologic improvement since he has been here. I have talked daily with the and mother. Currently, he is on the volume assist control mode rate of 26 tidal volume 450 FiO2 35% and PEEP of 5. Arterial blood gases show a PaO2 of 107 PaCO2 38 and pH 7.44. Those arterial blood gases were done on 40 % FiO2. The patient is receiving vital high protein at goal. Neurology was consulted but has not seen the patient as yet. EEG was done. Results are pending. Chest x-ray shows some minimal left basilar airspace disease. White count 11.8 hemoglobin 11.7 hematocrit 36 platelet count normal. Sodium potassium chloride CO 2 normal anion gap normal and BUN and creatinine were normal. Microbiology was negative or pending. Objective - Vital Signs Vital signs: Vital Signs Temp 99.0 F 03/28/18 08:00 Pulse 82 03/28/18 08:00 Resp 27 H 03/28/18 08:00 BP 129/77 03/28/18 08:00 Pulse Ox 100 03/28/18 08:00 Intake & Output 03/27/18 03/28/18 03/28/18 18:59 06:59 18:59 Intake Total 2026.183 0013 336 Output Total 615 485 5 Balance 879.705 2732 331 Weight 119.7 kg 123.1 kg Intake: IV 825 900 150 Sodium Chloride 0.9% 1, 825 900 150 000 ml @ 75 mls/hr IV . [id number] JANAE Rx#:[id number] Intake, IV Titration 10.411 0 Amount Propofol 1,000 mg In 10.411 0 Empty Bag 1 bag @ Titrate IV .Q0M JANAE Rx#: [id number] Oral 60 Tube Feeding 180 528 186 Other 90 Output: Urine 615 485 5 Other: Voiding Method Indwelling Catheter Incontinent Incontinent - Exam No acute distress, nonresponsive, with an orally placed endotracheal tube and NG tube.. HEENT examination is grossly unremarkable. Mucous membranes are moist. No oral lesions. Pupils are dilated and sluggish. Neck supple. Full range of motion. No adenopathy thyromegaly or neck vein distention. Cardiovascular examination reveals regular rhythm rate. S1-S2 normal. No S3 or S4. No discernible murmur noted. Lungs reveal mostly clear. A few scattered rhonchi noted. Breath sounds equal bilaterally. Abdomen soft bowel sounds are heard. No masses or tenderness. Extremities are intact. No cyanosis clubbing or edema. Skin is without rash or lesion. Neurologic examination is unchanged. He does trigger the ventilator. He does have a gag reflex. No response to verbal or painful stimuli. Pupils are dilated and sluggish. A very minimal corneal reflex. - Labs CBC & Chem 7: 03/28/18 04:03 03/28/18 04:03 Labs: Abnormal Lab Results - Last 24 Hours (Table) 03/26/18 03/28/18 03/28/18 Range/Units 00:25 04:03 04:03 WBC 11.8 H (3.8-10.6) k/uL RBC 4.17 L (4.30-5.90) m/uL Hgb 11.7 L (13.0-17.5) gm/dL Hct 36.0 L (39.0-53.0) % Neutrophils # 10.0 H (1.3-7.7) k/uL Lymphocytes # 0.8 L (1.0-4.8) k/uL ABG HCO3 (21-25) mmol/L ABG Total CO2 (19-24) mmol/L ABG O2 Saturation (94-97) % Glucose 111 H (74-99) mg/dL POC Glucose (mg/dL) 230 H (75-99) mg/dL Phosphorus 2.4 L (2.5-4.5) mg/dL 03/28/18 Range/Units 04:38 WBC (3.8-10.6) k/uL RBC (4.30-5.90) m/uL Hgb (13.0-17.5) gm/dL Hct (39.0-53.0) % Neutrophils # (1.3-7.7) k/uL Lymphocytes # (1.0-4.8) k/uL ABG HCO3 26 H (21-25) mmol/L ABG Total CO2 27 H (19-24) mmol/L ABG O2 Saturation 98.8 H (94-97) % Glucose (74-99) mg/dL POC Glucose (mg/dL) (75-99) mg/dL Phosphorus (2.5-4.5) mg/dL Microbiology - Last 24 Hours (Table) 03/26/18 03:30 Urine Culture - Final Urine,Catheterized Assessment and Plan Assessment: Assessment Out of hospital cardiopulmonary arrest with prolonged ( > 45" )cardiopulmonary resuscitation and return of spontaneous circulation, rule out anoxic brain injury Inferior wall ST segment elevation myocardial infarction. Status post coronary arteriography and 2 stents placed in the right coronary artery Anoxic/metabolic encephalopathy History of hypertension History of hyperlipidemia Sleep apnea syndrome Obesity. Noncompliance with medical care and/or medication/CPAP Plan: Plan dated 03/26/2018 Currently, the patient is receiving supportive care with mechanical ventilation. The patient some medications labs and x-rays are all reviewed. I had a long talk with the patient's mother. This is obviously very sad situation a lot will depend on whether or not there is any significant neurologic recovery. The resuscitation time was quite long of about 45 minutes or so. The patient did have an ST segment elevation myocardial infarction involving the inferior wall. 2 stents were placed by cardiology and the right coronary artery. Currently is on mechanical ventilator. I had the nurse stop the propofol. We'll have a neurology consult done. He'll need a EEG. Additional recommendations and suggestions are forthcoming. Plan dated 03/27/2018 Prognosis is poor. The patient has shown no neurologic improvement. The patient's propofol be held. We'll make sure we start the patient on tube feeds. No changes in the ventilator settings. Lab data looks all within normal range. He is on losartan and metoprolol for blood pressure support. He is status post coronary arteriography with 2 stents placed in the right coronary artery. He did suffer an ST segment elevation myocardial infarction. Prognosis is very poor. I've explained all that to the family. We'll await input by neurology. EEG is currently pending. Critical care time 36 minutes Plan dated 03/28/2018 Prognosis continues to be very poor. This been no neurologic improvement of the patient. The patient was started back on propofol today after became very restless on the ventilator dependent. No purposeful movements noted. He does continue the ventilator. Labs x-rays a medications are all reviewed. Await results of EEG. Nobody from neurology has actually seen the patient as yet. Critical care time 35 minutes Time with Patient: Greater than 30
--- NOTE | 2018-03-28 11:22 | EEG ---
ELECTROENCEPHALOGRAM REPORT DATE OF SERVICE: 03/25/2018. REASON FOR TESTING: Altered mental status. DESCRIPTION OF THE PROCEDURE: This EEG was performed as a 21 channel digital electroencephalograph, following international 20 system. DESCRIPTION OF THE RECORDING: From the beginning of the tracing, and with the patient's eyes closed, the background rhythm was mostly consisting of 6 Hz theta frequency in the posterior occipital leads. No obvious asymmetry is seen. Photic stimulation was performed with no driving response seen. No pathological waves were elicited. Hyperventilation was not performed. Occasional slowing background rhythm into the delta range was also seen. Frequent muscle artifacts and lead artifacts are seen. The patient does reach stage II of sleep during the tracing and occasional sleep spindles are seen. No epileptiform discharges were seen. INTERPRETATION: This asleep and awake EEG is abnormal due to the frequency of generalized slowing of the background rhythm, mostly in the theta range and occasionally into the delta range. This is consistent with moderate to severe encephalopathy. No obvious epileptiform discharges were seen. The absence of epileptiform discharges does not rule out the diagnosis of epilepsy; therefore clinical correlation is recommended. MMNEISHAL / IJN: [id number] / MTDRen
--- NOTE | 2018-03-28 12:05 | P.PN ---
Subjective Progress Note Date: 03/28/18 Principal diagnosis: Acute coronary syndrome This is a pleasant 48-year-old gentleman who unfortunately had a cardiac arrest at home with a downtime of about 45 minutes. The patient was brought back to normal sinus rhythm and was brought to the emergency room where he underwent an emergent heart catheterization and was found to have occluded right coronary artery which was opened and stented and also severe disease involving the ramus intermedius. Unfortunately there is question regarding anoxic encephalopathy. Neurology was consulted and EEG was performed. Hemodynamically he is slightly hypotensive and tachycardic. I would increase the dose of metoprolol to 25 mg by mouth twice a day. Beside that he is on dual antiplatelet therapy along with high intensity statin. The echocardiogram revealed mildly impaired LV function with EF around 45%. Currently the patient is intubated and he is on ventilator. Unfortunately there is a major concern regarding anoxic encephalopathy. The EEG is consistent with that. Beside that after stopping sedation yesterday the patient did not wake up. Neurology on the case. The EEG is going to be repeated later on today. Objective - Vital Signs Vital signs: Vital Signs Temp 99.0 F 03/28/18 08:00 Pulse 85 03/28/18 11:34 Resp 26 H 03/28/18 11:00 BP 117/63 03/28/18 11:00 Pulse Ox 100 03/28/18 11:00 Intake & Output 03/27/18 03/28/18 03/28/18 18:59 06:59 18:59 Intake Total 8155.472 0259 747 Output Total 615 485 215 Balance 424.738 5944 532 Weight 119.7 kg 123.1 kg Intake: IV 825 900 375 Sodium Chloride 0.9% 1, 825 900 375 000 ml @ 75 mls/hr IV . [id number] JANAE Rx#:[id number] Intake, IV Titration 10.411 0 Amount Propofol 1,000 mg In 10.411 0 Empty Bag 1 bag @ Titrate IV .Q0M JANAE Rx#: [id number] Oral 60 Tube Feeding 180 528 372 Other 90 Output: Urine 615 485 215 Other: Voiding Method Indwelling Catheter Incontinent Incontinent - Constitutional General appearance: Present: no acute distress - Respiratory Respiratory: bilateral: CTA - Cardiovascular Rhythm: regular Heart sounds: normal: S1, S2 - Labs CBC & Chem 7: 03/28/18 04:03 07/08/18 04:03 Labs: Abnormal Lab Results - Last 24 Hours (Table) 03/26/18 03/28/18 03/28/18 Range/Units 00:25 04:03 04:03 WBC 11.8 H (3.8-10.6) k/uL RBC 4.17 L (4.30-5.90) m/uL Hgb 11.7 L (13.0-17.5) gm/dL Hct 36.0 L (39.0-53.0) % Neutrophils # 10.0 H (1.3-7.7) k/uL Lymphocytes # 0.8 L (1.0-4.8) k/uL ABG HCO3 (21-25) mmol/L ABG Total CO2 (19-24) mmol/L ABG O2 Saturation (94-97) % Glucose 111 H (74-99) mg/dL POC Glucose (mg/dL) 230 H (75-99) mg/dL Phosphorus 2.4 L (2.5-4.5) mg/dL 03/28/18 Range/Units 04:38 WBC (3.8-10.6) k/uL RBC (4.30-5.90) m/uL Hgb (13.0-17.5) gm/dL Hct (39.0-53.0) % Neutrophils # (1.3-7.7) k/uL Lymphocytes # (1.0-4.8) k/uL ABG HCO3 26 H (21-25) mmol/L ABG Total CO2 27 H (19-24) mmol/L ABG O2 Saturation 98.8 H (94-97) % Glucose (74-99) mg/dL POC Glucose (mg/dL) (75-99) mg/dL Phosphorus (2.5-4.5) mg/dL Microbiology - Last 24 Hours (Table) 03/26/18 03:30 Urine Culture - Final Urine,Catheterized Assessment and Plan Assessment: Assessment #1 cardiac arrest #2 acute respiratory failure #[address] elevation HI #4 possible anoxic encephalopathy Plan #1 the blood pressure and heart rate are well controlled on the current dose of metoprolol #2 continue dual antiplatelet therapy along with a statin #3 the echocardiogram was reviewed and revealed mildly impaired LV function #4 follow-up with the patient. Unfortunately there is question regarding anoxic encephalopathy.
--- NOTE | 2018-03-28 13:39 | P.PN ---
Subjective Progress Note Date: 03/28/18 Principal diagnosis: Unresponsiveness This is a 48-year-old male continue be evaluated by the neurology service in the [facility] intensive care unit. Recall that he had an acute cardiac arrest with extended down time with extended CPR done. He went directly to cardiac catheterization and stenting. He has since been in the ICU intubated and sedated. He has been tried off sedation twice now and he becomes quite agitated is bucking the ventilator. His CT of the brain showed no abnormalities. An EEG did show moderate to severe encephalopathy. His blood pressure continues to be difficult to control. Continues to be followed by multiple specialties. Nursing reports no appreciable neurological improvement. Objective - Vital Signs Vital signs: Vital Signs Temp 99.0 F 03/28/18 08:00 Pulse 85 03/28/18 11:34 Resp 26 H 03/28/18 11:00 BP 117/63 03/28/18 11:00 Pulse Ox 100 03/28/18 11:00 Intake & Output 03/27/18 03/28/18 03/28/18 18:59 06:59 18:59 Intake Total 6261.556 8663 747 Output Total 615 485 215 Balance 230.075 4217 532 Weight 119.7 kg 123.1 kg Intake: IV 825 900 375 Sodium Chloride 0.9% 1, 825 900 375 000 ml @ 75 mls/hr IV . [id number] JANAE Rx#:[id number] Intake, IV Titration 10.411 0 Amount Propofol 1,000 mg In 10.411 0 Empty Bag 1 bag @ Titrate IV .Q0M JANAE Rx#: [id number] Oral 60 Tube Feeding 180 528 372 Other 90 Output: Urine 615 485 215 Other: Voiding Method Indwelling Catheter Incontinent Incontinent - Constitutional Constitutional Comment(s): On a ventilator and sedated in the ICU General appearance: Present: no acute distress, obese - Respiratory Details: Mechanically ventilated - Cardiovascular Rhythm: regular - Gastrointestinal General gastrointestinal: Absent: distended - Neurologic Neurologic Comment(s): The patient remains sedated and on mechanical ventilation. Pupillary responses minimal. Corneal reflex is negligible. Oculocephalic reflex is equivocal for brainstem dysfunction. He has a gag reflex. There is no response to painful stimuli. Babinski could not be elicited today. - Labs CBC & Chem 7: 03/28/18 04:03 07/08/18 04:03 Labs: Abnormal Lab Results - Last 24 Hours (Table) 03/26/18 03/28/18 03/28/18 Range/Units 00:25 04:03 04:03 WBC 11.8 H (3.8-10.6) k/uL RBC 4.17 L (4.30-5.90) m/uL Hgb 11.7 L (13.0-17.5) gm/dL Hct 36.0 L (39.0-53.0) % Neutrophils # 10.0 H (1.3-7.7) k/uL Lymphocytes # 0.8 L (1.0-4.8) k/uL ABG HCO3 (21-25) mmol/L ABG Total CO2 (19-24) mmol/L ABG O2 Saturation (94-97) % Glucose 111 H (74-99) mg/dL POC Glucose (mg/dL) 230 H (75-99) mg/dL Phosphorus 2.4 L (2.5-4.5) mg/dL 03/28/18 Range/Units 04:38 WBC (3.8-10.6) k/uL RBC (4.30-5.90) m/uL Hgb (13.0-17.5) gm/dL Hct (39.0-53.0) % Neutrophils # (1.3-7.7) k/uL Lymphocytes # (1.0-4.8) k/uL ABG HCO3 26 H (21-25) mmol/L ABG Total CO2 27 H (19-24) mmol/L ABG O2 Saturation 98.8 H (94-97) % Glucose (74-99) mg/dL POC Glucose (mg/dL) (75-99) mg/dL Phosphorus (2.5-4.5) mg/dL Microbiology - Last 24 Hours (Table) 03/26/18 03:30 Urine Culture - Final Urine,Catheterized Assessment and Plan (1) Encephalopathy acute Current Visit: Yes Status: Acute Code(s): G93.40 - ENCEPHALOPATHY, UNSPECIFIED SNOMED Code(s): 35318595 (2) Acute myocardial infarction Current Visit: Yes Status: Acute Code(s): I21.9 - ACUTE MYOCARDIAL INFARCTION, UNSPECIFIED SNOMED Code(s): 47823792 (3) Acute respiratory failure Current Visit: Yes Status: Acute Code(s): J96.00 - ACUTE RESPIRATORY FAILURE , UNSP W HYPOXIA OR HYPERCAPNIA SNOMED Code(s): 43336611 (4) Cardiac arrest Current Visit: Yes Status: Acute Code(s): I46.9 - CARDIAC ARREST, CAUSE UNSPECIFIED SNOMED Code(s): 338111439 (5) Hypertension Current Visit: Yes Status: Chronic Code(s): I10 - ESSENTIAL (PRIMARY) HYPERTENSION SNOMED Code(s): 86583598 (6) Hyperlipidemia Current Visit: Yes Status: Chronic Code(s): E78.5 - HYPERLIPIDEMIA, UNSPECIFIED SNOMED Code(s): 35643694 (7) Obstructive sleep apnea Current Visit: Yes Status: Chronic Code(s): G47.33 - OBSTRUCTIVE SLEEP APNEA (ADULT) (PEDIATRIC) SNOMED Code(s): 16952162 (8) Obesity Current Visit: Yes Status: Chronic Code(s): E66.9 - OBESITY, UNSPECIFIED SNOMED Code(s): 413669299 Plan: Patient is getting supportive care in the ICU with mechanical ventilation. With his extended down time and no improvement in neurological function, this likely represents anoxic brain injury. As above his EEG showed moderate to severe encephalopathy. A CT of the brain was normal. Continue following with cardiology and pulmonology. Time was spent with the patient's and questions were answered. His prognosis is poor. Dr. Alarcon has discussed this case with family and they are in the process of determining what steps to take next. I have performed a history and physical on the above patient. I have reviewed the above note, and agree.
--- NOTE | 2018-03-28 15:07 | P.PN ---
Subjective Progress Note Date: 03/28/18 Principal diagnosis: Status post cardiopulmonary arrest due to STEMI Mr. Pollard is a 48-year-old with a past medical history of hypertension, hyperlipidemia admitted after having cardiopulmonary arrest at home. Before EMS arrived the patient was resuscitated for 10-15 minutes. His initial rhythm was probably V. tach followed by bradycardia and patient had CPR done for around 40 minutes before he got to sinus rhythm. Patient was directly taken to the veterinarian laboratory animal care was found to have STEMI and stenting of the RCA was done. Patient does not respond to verbal or painful stimuli. He is currently on a ventilator. Patient has also been started on tube feeds and Villagomez's catheter in place. EEG revealed moderate to severe encephalopathy. Review of systems: Could not be obtained as the patient is sedated and intubated. Objective - Vital Signs Vital signs: Vital Signs Temp 99.0 F 03/28/18 12:00 Pulse 104 H 03/28/18 14:00 Resp 27 H 03/28/18 14:00 BP 113/67 03/28/18 14:00 Pulse Ox 100 03/28/18 14:00 Intake & Output 03/27/18 03/28/18 03/28/18 18:59 06:59 18:59 Intake Total 5301.431 8038 1357 Output Total 615 485 495 Balance 620.569 8481 862 Weight 119.7 kg 123.1 kg Intake: IV 825 900 675 Sodium Chloride 0.9% 1, 825 900 675 000 ml @ 75 mls/hr IV . [id number] JANAE Rx#:[id number] Intake, IV Titration 10.411 0 Amount Propofol 1,000 mg In 10.411 0 Empty Bag 1 bag @ Titrate IV .Q0M JANAE Rx#: [id number] Oral 60 Tube Feeding 180 528 682 Other 90 Output: Urine 615 485 495 Other: Voiding Method Indwelling Catheter Incontinent Incontinent - Exam GENERAL EXAM GEN. APPEARANCE: Patient is intubated and sedated in the ICU, obese HEAD EXAM: atraumatic, normocephalic RESPIRATORY EXAM: No crackles or wheezing appreciated CARDIOVASCULAR EXAM: S1-S2 heard no additional sounds GI/ABDOMINAL EXAM: Soft nondistended, bowel sounds positive EXTREMITIES EXAM: No edema peripheral pulses felt NEUROLOGICAL EXAM: Patient does not respond to verbal or painful stimuli. He has occasional facial grimacing SKIN EXAM: warm, dry, intact, normal color. Absent: rash - Labs CBC & Chem 7: 03/28/18 04:03 03/28/18 04:03 Labs: Abnormal Lab Results - Last 24 Hours (Table) 03/28/18 03/28/18 03/28/18 Range/Units 04:03 04:03 04:38 WBC 11.8 H (3.8-10.6) k/uL RBC 4.17 L (4.30-5.90) m/uL Hgb 11.7 L (13.0-17.5) gm/dL Hct 36.0 L (39.0-53.0) % Neutrophils # 10.0 H (1.3-7.7) k/uL Lymphocytes # 0.8 L (1.0-4.8) k/uL ABG HCO3 26 H (21-25) mmol/L ABG Total CO2 27 H (19-24) mmol/L ABG O2 Saturation 98.8 H (94-97) % Glucose 111 H (74-99) mg/dL Phosphorus 2.4 L (2.5-4.5) mg/dL Microbiology - Last 24 Hours (Table) 03/26/18 03:30 Urine Culture - Final Urine,Catheterized Assessment and Plan Assessment: ASSESSMENT Status post cardiopulmonary resuscitation Encephalopathy - due to anoxic brain injury ST elevation [place] - right coronary artery Acute respiratory failure Acute renal failure -secondary to [place] Hyperlipidemia Hypertension Obesity with BMI of 37 Plan: Patient to be continued on mechanical ventilation. He has been started on tube feeds. Patient had an EEG done showing moderate to severe encephalopathy. We will have to wait and watch for neurological improvement . But overall prognosis is very poor. Patient's family aware of the situation. Spoke with the patient's mother at the bedside in detail regarding the prognosis of the patient.
--- NOTE | 2018-03-28 15:08 | P.PN ---
Subjective Progress Note Date: 03/27/18 Principal diagnosis: Status post cardiopulmonary arrest due to STEMI Mr. Pollard is a 48-year-old with a past medical history of hypertension, hyperlipidemia admitted after having cardiopulmonary arrest at home. Before EMS arrived the patient was resuscitated for 10-15 minutes. His initial rhythm was probably V. tach followed by bradycardia and patient had CPR done for around 40 minutes before he got to sinus rhythm. Patient was directly taken to the engineer geophysical laboratory was found to have STEMI and stenting of the RCA was done. Patient does not respond to verbal or painful stimuli. He is currently on a ventilator. He has been off of sedation for an hour in the morning but after that he was found to be tachypneic and so propofol has been restarted. Patient has also been started on tube feeds. EEG revealed moderate to severe encephalopathy. Review of systems: Could not be obtained as the patient is sedated and intubated. Objective - Vital Signs Vital signs: Vital Signs Temp 99.0 F 03/27/18 08:00 Pulse 77 03/27/18 11:20 Resp 29 H 03/27/18 11:00 BP 125/83 03/27/18 11:00 Pulse Ox 99 03/27/18 11:00 Intake & Output 03/26/18 03/27/18 03/27/18 18:59 06:59 18:59 Intake Total 6375.644 6902.513 310.411 Output Total 850 650 290 Balance 347.499 542.513 20.411 Weight 119.5 kg 119.7 kg 119.7 kg Intake: IV 1100 975 300 Sodium Chloride 0.9% 1, 1100 75 000 ml @ 100 mls/hr IV . Q10H JANAE Rx#:[id number] Sodium Chloride 0.9% 1, 900 300 000 ml @ 75 mls/hr IV . [id number] JANAE Rx#:[id number] Intake, IV Titration 97.499 157.513 10.411 Amount Propofol 1,000 mg In 97.499 157.513 10.411 Empty Bag 1 bag @ Titrate IV .Q0M JANAE Rx#: [id number] Oral 60 Output: Gastric Drainage 75 Urine 850 575 290 Other: Voiding Method Indwelling Catheter Indwelling Catheter Indwelling Catheter # Bowel Movements 2 - Exam GENERAL EXAM GEN. APPEARANCE: Patient is intubated and sedated in the ICU, obese HEAD EXAM: atraumatic, normocephalic EYE EXAM: Right pupil is reactive to light, left pupil is less reactive RESPIRATORY EXAM: No crackles or wheezing appreciated CARDIOVASCULAR EXAM: S1-S2 heard no additional sounds GI/ABDOMINAL EXAM: Soft nondistended, bowel sounds positive EXTREMITIES EXAM: No edema peripheral pulses felt NEUROLOGICAL EXAM: Corneal and gag reflexes intact. Patient does not respond to verbal or painful stimuli. He has occasional facial grimacing SKIN EXAM: warm, dry, intact, normal color. Absent: rash - Labs CBC & Chem 7: 03/28/18 04:03 03/28/18 04:03 Labs: Abnormal Lab Results - Last 24 Hours (Table) 03/26/18 03/26/18 03/27/18 Range/Units 14:11 22:21 04:20 WBC 13.2 H (3.8-10.6) k/uL Neutrophils # 11.4 H (1.3-7.7) k/uL Lymphocytes # 0.7 L (1.0-4.8) k/uL ABG Total CO2 (19-24) mmol/L ABG O2 Saturation (94-97) % Glucose (74-99) mg/dL Troponin I 23.300 H* 33.700 H* (0.000-0.034) ng/mL 03/27/18 03/27/18 Range/Units 04:20 04:56 WBC (3.8-10.6) k/uL Neutrophils # (1.3-7.7) k/uL Lymphocytes # (1.0-4.8) k/uL ABG Total CO2 26 H (19-24) mmol/L ABG O2 Saturation 97.9 H (94-97) % Glucose 114 H (74-99) mg/dL Troponin I (0.000-0.034) ng/mL Microbiology - Last 24 Hours (Table) 03/26/18 03:30 Urine Culture - Preliminary Urine,Catheterized Assessment and Plan Assessment: ASSESSMENT Status post cardiopulmonary resuscitation Encephalopathy - due to anoxic brain injury ST elevation MD - right coronary artery Acute respiratory failure Acute renal failure -secondary to [place] Hyperlipidemia Hypertension Obesity with BMI of 37 Plan: Patient to be continued on mechanical ventilation. He has been started on tube feeds. Patient had an EEG done showing moderate to severe encephalopathy. We will have to wait and watch for neurological improvement . But overall prognosis is very poor. Patient's family aware of the situation.
[2018-03-28] MEDS: PROPOFOL 1,000 MG in EMPTY BAG 1 BAG IV SCH ×2 (15:56→21:40)
[2018-03-28] MEDS: ATORVASTATIN 80 MG TAB PO SCH (20:48)
[2018-03-28] MEDS: HYDROmorphone 0.5 MG/0.5 ML SYRINGE IVP PRN (20:59)
[2018-03-29] MEDS: HEPARIN SODIUM,PORCINE 5,000 UNIT/ML 1 ML VIAL SQ SCH ×3 (00:14→15:41)
[2018-03-29] MEDS: IPRATROPIUM-ALBUTEROL 3 ML NEB INHALATION SCH ×6 (03:36→23:05)
[2018-03-29 04:19] LABS: Basophils % (A) 0 %; Eosinophils # (A) 0.1 k/uL (0-0.7); Eosinophils % (A) 1 %; HCT 33.8 % (39.0-53.0); HGB 10.9 gm/dL (13.0-17.5); Lymphocytes # (A) 0.7 k/uL (1.0-4.8); Lymphocytes % (A) 6 %; MCHC 32.4 g/dL (31.0-37.0); MCV 86.6 fL (80.0-100.0); Mean Platelet Volume 7.8; Monocytes # (A) 0.8 k/uL (0-1.0); Monocytes % (A) 7 %; Neutrophils % (A) 84 %; Platelet Count 199 k/uL (150-450); RDW 13.7 % (11.5-15.5); WBC 10.7 k/uL (3.8-10.6)
[2018-03-29 04:33] LABS: Anion Gap 10 mmol/L; Blood Urea Nitrogen 26 mg/dL (9-20); Calcium 8.6 mg/dL (8.4-10.2); Carbon Dioxide 24 mmol/L (22-30); Chloride 109 mmol/L (98-107); Glucose 119 mg/dL (74-99); Magnesium 2.1 mg/dL (1.6-2.3); Phosphorus 3.1 mg/dL (2.5-4.5); Sodium 143 mmol/L (137-145)
[2018-03-29 05:11] LABS: ABG Base Excess 1.5 mmol/L; ABG HCO3 25 mmol/L (21-25); ABG Oxygen Saturation 97.5 % (94-97); ABG PCO2 36 mmHg (35-45); ABG PH 7.45 (7.35-7.45); ABG PO2 83 mmHg (83-108); ABG TCO2 27 mmol/L (19-24)
[2018-03-29] MEDS: PANTOPRAZOLE 40 MG/10 ML VIAL IV SCH (07:45)
[2018-03-29] MEDS: CHLORHEXIDINE GLUCONATE 15 ML CUP MUCOUS MEM SCH ×2 (07:45→20:02)
[2018-03-29] MEDS: TICAGRELOR 90 MG TAB PO SCH ×2 (07:46→20:03)
[2018-03-29] MEDS: METOPROLOL TARTRATE 25 MG TAB PO SCH ×2 (07:46→20:03)
[2018-03-29] MEDS: SODIUM CHLORIDE 0.9% 1,000 ML IV SCH ×2 (07:46→22:55)
[2018-03-29] MEDS: ASPIRIN 81 MG PO SCH (07:46)
[2018-03-29] MEDS: LOSARTAN 25 MG TAB PO SCH (07:46)
[2018-03-29] MEDS: PROPOFOL 1,000 MG in EMPTY BAG 1 BAG IV SCH ×3 (07:47→20:03)
--- NOTE | 2018-03-29 08:24 | XR ---
EXAMINATION TYPE: XR chest 1V DATE OF EXAM: 03/29/2018 COMPARISON: Prior chest 03/28/2018 HISTORY: Intubated TECHNIQUE: Single frontal view of the chest is obtained. FINDINGS: Endotracheal and NG tube are overlying appropriate positions. There are overlying cardiac leads. Lung volumes are low. No evident pneumothorax or sizable effusion. Patchy basilar density pers ists, heart size is stable. Pulmonary vascularity and mary ellen not significantly changed. IMPRESSION: Expiratory exam. Suspect cardiomegaly, basilar atelectasis. Correlate to exclude pneumon ia. Follow-up recommended.
--- NOTE | 2018-03-29 08:59 | P.PN ---
Subjective Progress Note Date: 03/29/18 Principal diagnosis: Acute coronary syndrome This is a pleasant 48-year-old gentleman who unfortunately had a cardiac arrest at home with a downtime of about 45 minutes. The patient was brought back to normal sinus rhythm and was brought to the emergency room where he underwent an emergent heart catheterization and was found to have occluded right coronary artery which was opened and stented and also severe disease involving the ramus intermedius. Unfortunately the patient might have anoxic encephalopathy. An EEG was performed yesterday and were waiting for the neurology service to assess the patient. Hemodynamically the patient seems to be stable. He is not on any vasopressors. He is on maximize medical treatment consistent of dual antiplatelet therapy along with high intensity statin. Objective - Vital Signs Vital signs: Vital Signs Temp 98.9 F 03/29/18 08:00 Pulse 82 03/29/18 08:00 Resp 26 H 03/29/18 08:00 BP 119/68 03/29/18 08:00 Pulse Ox 100 03/29/18 08:00 Intake & Output 03/28/18 03/29/18 03/29/18 18:59 06:59 18:59 Intake Total 2129 1908 137 Output Total 725 580 50 Balance 1404 1328 87 Weight 122.4 kg Intake: IV 975 750 75 Sodium Chloride 0.9% 1, 975 750 75 000 ml @ 75 mls/hr IV . [id number] JANAE Rx#:[id number] Intake, IV Titration 100 200 Amount Propofol 1,000 mg In 100 200 Empty Bag 1 bag @ Titrate IV .Q0M JANAE Rx#: [id number] Tube Feeding 1054 868 62 Other 90 Output: Urine 725 580 50 Other: Voiding Method Incontinent Indwelling Catheter Indwelling Catheter - Constitutional General appearance: Present: no acute distress - Respiratory Respiratory: bilateral: CTA - Labs CBC & Chem 7: 03/29/18 03:58 03/29/18 03:58 Labs: Abnormal Lab Results - Last 24 Hours (Table) 03/29/18 03/29/18 03/29/18 Range/Units 03:58 03:58 05:07 WBC 10.7 H (3.8-10.6) k/uL RBC 3.90 L (4.30-5.90) m/uL Hgb 10.9 L (13.0-17.5) gm/dL Hct 33.8 L (39.0-53.0) % Neutrophils # 9.0 H (1.3-7.7) k/uL Lymphocytes # 0.7 L (1.0-4.8) k/uL ABG Total CO2 27 H (19-24) mmol/L ABG O2 Saturation 97.5 H (94-97) % Chloride 109 H (98-107) mmol/L BUN 26 H (9-20) mg/dL Glucose 119 H (74-99) mg/dL Assessment and Plan Assessment: Assessment #1 cardiac arrest #2 acute respiratory failure #[address] elevation [place] #4 possible anoxic encephalopathy Plan #1 the blood pressure and heart rate are well controlled on the current dose of metoprolol #2 continue dual antiplatelet therapy along with a statin #3 the echocardiogram was reviewed and revealed mildly impaired LV function #4 follow-up with the patient. Unfortunately there is question regarding anoxic encephalopathy.
--- NOTE | 2018-03-29 13:48 | P.PN ---
Subjective Progress Note Date: 03/29/18 A 48-year-old male patient with status post acute inferior wall myocardial infarction with a subsequent cardiac arrest that was prolonged and the patient is currently in the intensive care unit and the active problem remains altered mental status and possibly hypoxic encephalopathy. The patient as mentioned was taken to the [facility] and the patient underwent emergent cardiac catheterization and 2 stents were inserted in the RCA. The emergent management of the acute ST segment elevation myocardial infarction was performed. The patient however was kept intubated on a mechanical ventilator knowing that he did not demonstrate adequate neurologic recovery. He is currently on assist control mode of ventilation at the rate of 26, FiO2 of 40% with a PEEP of 5 and a tidal volume of 450. The patient also has history of hypertension, hyperlipidemia and obstructive sleep apnea. Over the past 24 hours the patient did not show any significant neurologic recovery and the patient is being seen today on a follow-up On today's evaluation of 03/29/2018, the patient was taken off sedation. After few hours of being off the sedation the patient started bucking on the tube and he was becoming asynchronous with a mechanical ventilator and based on that the sedation was restarted at 30 mics of the prevent. Hemodynamically he is doing extremely well. Making adequate urine output. He is afebrile. No signs of respiratory distress. Neurologically, the patient does not respond or withdrawal to deep painful stimuli. No seizure activity has been noted. He has abdominal were looking gaze. Pupils are equal and reactive to light. He does cough. He does bike on the tube. He is able to tolerate his tube feeds without any major difficulties. The chest x-ray showed adequate positioning of the ET tube and NG tube. The blood gases from today showed a pH of 7.45 with a pCO2 of 36 and pO2 of 83. Rest of the blood work and electrodes are all within normal limits. Objective - Vital Signs Vital signs: Vital Signs Temp 98.9 F 03/29/18 08:00 Pulse 88 03/29/18 11:29 Resp 26 H 03/29/18 09:00 BP 103/63 03/29/18 09:00 Pulse Ox 97 03/29/18 09:00 Intake & Output 03/28/18 03/29/18 03/29/18 18:59 06:59 18:59 Intake Total 2129 1908 274 Output Total 725 580 100 Balance 1404 1328 174 Weight 122.4 kg 122 kg Intake: IV 975 750 150 Sodium Chloride 0.9% 1, 975 750 150 000 ml @ 75 mls/hr IV . [id number] JANAE Rx#:[id number] Intake, IV Titration 100 200 Amount Propofol 1,000 mg In 100 200 Empty Bag 1 bag @ Titrate IV .Q0M JANAE Rx#: [id number] Tube Feeding 1054 868 124 Other 90 Output: Urine 725 580 100 Other: Voiding Method Incontinent Indwelling Catheter Indwelling Catheter - Exam No acute distress, nonresponsive, with an orally placed endotracheal tube and NG tube.. HEENT examination is grossly unremarkable. Mucous membranes are moist. No oral lesions. Pupils are dilated and sluggish. Neck supple. Full range of motion. No adenopathy thyromegaly or neck vein distention. Cardiovascular examination reveals regular rhythm rate. S1-S2 normal. No S3 or S4. No discernible murmur noted. Lungs reveal mostly clear. A few scattered rhonchi noted. Breath sounds equal bilaterally. Abdomen soft bowel sounds are heard. No masses or tenderness. Extremities are intact. No cyanosis clubbing or edema. Skin is without rash or lesion. Neurologic examination is unchanged. He does trigger the ventilator. He does have a gag reflex. No response to verbal or painful stimuli. Pupils are dilated and sluggish. A very minimal corneal reflex. He does not withdraw to deep painful stimulation. He has a downward looking gaze. Reflexes are diminished in all 4 extremities. - Labs CBC & Chem 7: 03/29/18 03:58 03/29/18 03:58 Labs: Abnormal Lab Results - Last 24 Hours (Table) 03/29/18 03/29/18 03/29/18 Range/Units 03:58 03:58 05:07 WBC 10.7 H (3.8-10.6) k/uL RBC 3.90 L (4.30-5.90) m/uL Hgb 10.9 L (13.0-17.5) gm/dL Hct 33.8 L (39.0-53.0) % Neutrophils # 9.0 H (1.3-7.7) k/uL Lymphocytes # 0.7 L (1.0-4.8) k/uL ABG Total CO2 27 H (19-24) mmol/L ABG O2 Saturation 97.5 H (94-97) % Chloride 109 H (98-107) mmol/L BUN 26 H (9-20) mg/dL Glucose 119 H (74-99) mg/dL Assessment and Plan Plan: Assessment [address] segment elevation a few wall myocardial infarction status post emergent cardiac catheterization and stenting of the RCA 2 out of hospital cardiopulmonary arrest with a prolonged downtime of 45 minutes with subsequent return of spontaneous circulation. 3 altered mental status, most consistent with hypoxic/anoxic encephalopathy 4 hypertension 5 hyperlipidemia 6 obesity with a BMI of 38.6 7 obstructive sleep apnea Plan I had a lengthy discussion with the patient's on the mother. The patient is hemodynamically stable. From the cardiopulmonary standpoint, is doing extremely well. Nevertheless, he remains comatose and unresponsive. He is not brain obviously and he is in comatose state secondary to severe anoxic encephalopathy post cardiac arrest. CAT scan of the brain was done on 2017 and the study needs to be repeated. The patient will need also a PEG and trach anticipating prolonged mechanical ventilator dependence as a result of anoxic encephalopathy. The family was agreeable to that. We'll consult Dr. Somers regarding PEG and trach insertion. We'll continue the rest of the supportive care. We'll continue to follow. Meanwhile, continue aspirin, continue Quincy test, will need to put the patient on Diprivan for sedation purposes and the patient may, off the sedation once a PEG and trach is inserted. Continue beta blockers, continue statins, long-term prognosis poor baseline above-mentioned comorbidities. This critically care evaluation was done in 40 minutes. Time with Patient: Greater than 30
--- NOTE | 2018-03-29 15:01 | P.PN ---
Subjective Progress Note Date: 03/29/18 Principal diagnosis: Anoxic brain injury Status post cardiopulmonary arrest due to STEMI Mr. Pollard is a 48-year-old with a past medical history of hypertension, hyperlipidemia admitted after having cardiopulmonary arrest at home. Before EMS arrived the patient was resuscitated for 10-15 minutes. His initial rhythm was probably V. tach followed by bradycardia and patient had CPR done for around 40 minutes before he got to sinus rhythm. Patient was directly taken to the construction laborer was found to have STEMI and stenting of the RCA was done. Patient does not respond to verbal or painful stimuli. He is currently on a ventilator. He has been off of sedation for 3 hours in the morning but after that he was found to be tachypneic and he was also biting on the ET tube so eventually propofol has been restarted. Patient has also been started on tube feeds. EEG revealed moderate to severe encephalopathy. Patient's mother at the bedside. Review of systems: Could not be obtained as the patient is sedated and intubated. Objective - Vital Signs Vital signs: Vital Signs Temp 98.9 F 03/29/18 08:00 Pulse 88 03/29/18 11:29 Resp 26 H 03/29/18 09:00 BP 103/63 03/29/18 09:00 Pulse Ox 97 03/29/18 09:00 Intake & Output 03/28/18 03/29/18 03/29/18 18:59 06:59 18:59 Intake Total 2129 1908 274 Output Total 725 580 100 Balance 1404 1328 174 Weight 122.4 kg 122 kg Intake: IV 975 750 150 Sodium Chloride 0.9% 1, 975 750 150 000 ml @ 75 mls/hr IV . [id number] JANAE Rx#:[id number] Intake, IV Titration 100 200 Amount Propofol 1,000 mg In 100 200 Empty Bag 1 bag @ Titrate IV .Q0M JANAE Rx#: [id number] Tube Feeding 1054 868 124 Other 90 Output: Urine 725 580 100 Other: Voiding Method Incontinent Indwelling Catheter Indwelling Catheter - Exam GENERAL EXAM GEN. APPEARANCE: Patient is intubated and sedated in the ICU, obese HEAD EXAM: atraumatic, normocephalic RESPIRATORY EXAM: No crackles or wheezing appreciated CARDIOVASCULAR EXAM: S1-S2 heard no additional sounds GI/ABDOMINAL EXAM: Soft nondistended, bowel sounds positive EXTREMITIES EXAM: No edema peripheral pulses felt NEUROLOGICAL EXAM: Patient does not respond to verbal or painful stimuli. He has occasional facial grimacing SKIN EXAM: warm, dry, intact, normal color. Absent: rash - Labs CBC & Chem 7: 03/29/18 03:58 03/29/18 03:58 Labs: Abnormal Lab Results - Last 24 Hours (Table) 03/29/18 03/29/18 03/29/18 Range/Units 03:58 03:58 05:07 WBC 10.7 H (3.8-10.6) k/uL RBC 3.90 L (4.30-5.90) m/uL Hgb 10.9 L (13.0-17.5) gm/dL Hct 33.8 L (39.0-53.0) % Neutrophils # 9.0 H (1.3-7.7) k/uL Lymphocytes # 0.7 L (1.0-4.8) k/uL ABG Total CO2 27 H (19-24) mmol/L ABG O2 Saturation 97.5 H (94-97) % Chloride 109 H (98-107) mmol/L BUN 26 H (9-20) mg/dL Glucose 119 H (74-99) mg/dL Assessment and Plan Assessment: ASSESSMENT Status post cardiopulmonary resuscitation Encephalopathy - due to anoxic brain injury ST elevation [place] - right coronary artery Acute respiratory failure Acute renal failure -secondary to [place] Hyperlipidemia Hypertension Obesity with BMI of 37 Plan: Patient to be continued on mechanical ventilation. He has been started on tube feeds. Patient had an EEG done showing moderate to severe encephalopathy. We will have to wait and watch for neurological improvement . But overall prognosis is very poor. Patient's family aware of the situation- discussion about trach and PEG tube placement ongoing at this point.
--- NOTE | 2018-03-29 15:45 | P.GSCN ---
<Cisco Chaudhry - Last Filed: 03/29/18 15:35> History of Present Illness Consult date: 03/29/18 Reason for Consult: Evaluation for tracheostomy and percutaneous endoscopic gastrostomy tube placement. Requesting physician: Melina Rodriguez History of present illness: This a 48-year-old gentleman who is followed by Dr. Tra Jeffrey in an outpatient basis. Patient has a past medical history significant for hyperlipidemia, hypertension, history of early onset coronary artery disease with his brother having a heart attack at age 47, morbid obesity, sleep apnea, history of kidney stones and noncompliance with taking his prescribed medications and using his CPAP. Recently, the patient has had complaints of intermittent chest tightness which he described as a feeling of indigestion. He denied any complaints of nausea, vomiting, diaphoresis, shortness of breath, fever or chills. On 03/25/2018 while at home he apparently collapsed which was witnessed by his who initiated CPR and called the emergency medical service. The patient's reports she maintained CPR for about 15 minutes. According to his records he was intubated and the field, CPR was continued by EMS and the patient was shocked 3 times and received atropine and epinephrine 3 with return of spontaneous circulation. The patient's also reports that his total CPR was somewhere between 30 and 45 minutes. Subsequently upon arrival to [facility] he was taken to the [employer] [facility] where he underwent a cardiac catheterization which demonstrated mild nonobstructive disease to his left anterior descending coronary artery, a 70% stenosis to his ramus intermedius coronary artery, a 7080% lesion to his circumflex coronary artery, and a totally occluded mid right coronary artery. Patient also underwent successful stenting of his right coronary artery with 2 drug-eluting stents deployed. Currently the patient remains intubated with mechanical ventilator support and is currently sedated on Diprivan drip. Sedation holidays have been attempted and after a few hours of being off sedation the patient becomes agitated and asynchronous with mechanical ventilator support. According to the patient's he has not been responding to noxious stimuli when off the sedation. Subsequently due to patient not being able to tolerate weaning trials and sedation holidays a request has been placed to Dr. Somers from cardiothoracic surgery to evaluate the patient for a tracheostomy and PEG tube placement. Review of Systems A 14 point review of systems was completed and was obtained from the patient mother and and was negative except as mentioned in the HPI. Past Medical History Past Medical History: Chest Pain / Angina, Hyperlipidemia, Hypertension, Sleep Apnea/CPAP/BIPAP Additional Past Medical History / Comment(s): History of kidney stones. History of Any Multi-Drug Resistant Organisms: None Reported Past Surgical History: Orthopedic Surgery (History of right rotator cuff surgery in 2016.) Additional Past Surgical History / Comment(s): Right shoulder rotator cuff surgery 07/29/2016 Past Anesthesia/Blood Transfusion Reactions: No Reported Reaction Past Psychological History: No Psychological Hx Reported Smoking Status: Never smoker Past Alcohol Use History: Occasional Past Drug Use History: None Reported - Past Family History Brother(s) Family Medical History: Coronary Artery Disease (CAD), Myocardial Infarction (ND ) (At age 47) Mother Family Medical History: Hypertension, Osteoarthritis (OA) Father Additional Family Medical History / Comment(s): bipolar Medications and Allergies Home Medications Medication Instructions Recorded Confirmed Type Pravastatin Sodium [Pravachol] 20 mg PO HS 03/26/18 03/26/18 History Allergies Allergy/AdvReac Type Severity Reaction Status Date / Time No Known Allergies Allergy Unverified 03/26/18 08:48 Surgical - Exam Vital Signs Temp Pulse Resp BP Pulse Ox 97.0 F L 130 H 12 207/147 95 03/26/18 00:21 03/26/18 00:21 03/26/18 00:21 03/26/18 00:21 03/26/18 00:21 Patient is currently intubated with mechanical ventilator support and is currently sedated on propofol drip. - General well developed, well nourished, no distress, obese - Eyes PERRL - ENT normal pinna, normal nares, normal mucosa, no congestion - Neck No lymphadenopathy, neck is supple. no masses, no bruits, trachea midline, no venous distension - Respiratory Lung sounds are essentially clear throughout, few scattered rhonchi. Respirations are symmetrical and unlabored with mechanical ventilator support. Current mechanical ventilator settings are assist control 26, tidal volume 450, FiO2 35%, PEEP 5. Current oxygen saturation saturations are 98%. He is #8 ET tube secured in place. - Cardiovascular Regular rhythm and rate. S1 and S2 present, negative for S3, gallop or murmur. Bedside telemetry showing normal sinus rhythm heart rate 83. No edema present. Sequential compression devices in place to his bilateral lower extremities. - Abdomen Abdomen is soft, nontender and nondistended. Active bowel sounds present all 4 abdominal quadrants. No organomegaly. OG tube in place with vital high- protein infusing at goal rate of 62 mL per hour with automatic water flushes. - Genitourinary Villagomez catheter for accurate I&O. Draining clear yellow urine. - Rectum Deferred - Integumentary no rash, no growths, no abnormal pigmentation - Neurologic Currently the patient is sedated on Diprivan drip. Positive gag reflex. Results - Labs 03/29/18 03:58 03/29/18 03:58 Abnormal Lab Results - Last 24 Hours (Table) 03/29/18 03/29/18 03/29/18 Range/Units 03:58 03:58 05:07 WBC 10.7 H (3.8-10.6) k/uL RBC 3.90 L (4.30-5.90) m/uL Hgb 10.9 L (13.0-17.5) gm/dL Hct 33.8 L (39.0-53.0) % Neutrophils # 9.0 H (1.3-7.7) k/uL Lymphocytes # 0.7 L (1.0-4.8) k/uL ABG Total CO2 27 H (19-24) mmol/L ABG O2 Saturation 97.5 H (94-97) % Chloride 109 H (98-107) mmol/L BUN 26 H (9-20) mg/dL Glucose 119 H (74-99) mg/dL Diabetes panel 03/29/18 Range/Units 03:58 Sodium 143 (137-145) mmol/L Potassium 4.0 (3.5-5.1) mmol/L Chloride 109 H (98-107) mmol/L Carbon Dioxide 24 (22-30) mmol/L BUN 26 H (9-20) mg/dL Creatinine 0.90 (0.66-1.25) mg/dL Glucose 119 H (74-99) mg/dL Calcium 8.6 (8.4-10.2) mg/dL Calcium panel 03/29/18 Range/Units 03:58 Calcium 8.6 (8.4-10.2) mg/dL Phosphorus 3.1 (2.5-4.5) mg/dL Pituitary panel 03/29/18 Range/Units 03:58 Sodium 143 (137-145) mmol/L Potassium 4.0 (3.5-5.1) mmol/L Chloride 109 H (98-107) mmol/L Carbon Dioxide 24 (22-30) mmol/L BUN 26 H (9-20) mg/dL Creatinine 0.90 (0.66-1.25) mg/dL Glucose 119 H (74-99) mg/dL Calcium 8.6 (8.4-10.2) mg/dL Adrenal panel 03/29/18 Range/Units 03:58 Sodium 143 (137-145) mmol/L Potassium 4.0 (3.5-5.1) mmol/L Chloride 109 H (98-107) mmol/L Carbon Dioxide 24 (22-30) mmol/L BUN 26 H (9-20) mg/dL Creatinine 0.90 (0.66-1.25) mg/dL Glucose 119 H (74-99) mg/dL Calcium 8.6 (8.4-10.2) mg/dL - Imaging Chest x-ray: report reviewed, image reviewed Assessment and Plan (1) Morbid obesity Current Visit: Yes Status: Acute Code(s): E66.01 - MORBID (SEVERE) OBESITY DUE TO EXCESS CALORIES SNOMED Code(s): 832639492 (2) Altered mental status Current Visit: Yes Status: Acute Code(s): R41.82 - ALTERED MENTAL STATUS, UNSPECIFIED SNOMED Code(s): 677668328 (3) Anoxic encephalopathy Current Visit: Yes Status: Acute Code(s): G93.1 - ANOXIC BRAIN DAMAGE, NOT ELSEWHERE CLASSIFIED SNOMED Code(s): 009571612 (4) Acute myocardial infarction Current Visit: Yes Status: Acute Code(s): I21.9 - ACUTE MYOCARDIAL INFARCTION, UNSPECIFIED SNOMED Code(s): 55337956 (5) Acute respiratory failure Current Visit: Yes Status: Acute Code(s): J96.00 - ACUTE RESPIRATORY FAILURE , UNSP W HYPOXIA OR HYPERCAPNIA SNOMED Code(s): 21077509 (6) Cardiac arrest Current Visit: Yes Status: Acute Code(s): I46.9 - CARDIAC ARREST, CAUSE UNSPECIFIED SNOMED Code(s): 315418068 (7) Hyperlipidemia Current Visit: Yes Status: Chronic Code(s): E78.5 - HYPERLIPIDEMIA, UNSPECIFIED SNOMED Code(s): 05060398 (8) Hypertension Current Visit: Yes Status: Chronic Code(s): I10 - ESSENTIAL (PRIMARY) HYPERTENSION SNOMED Code(s): 00277693 (9) Obstructive sleep apnea Current Visit: Yes Status: Chronic Code(s): G47.33 - OBSTRUCTIVE SLEEP APNEA (ADULT) (PEDIATRIC) SNOMED Code(s): 59025977 (10) Family history of premature CAD Current Visit: Yes Status: Acute Code(s): Z82.49 - FAMILY HX OF ISCHEM HEART DIS AND OTH DIS OF THE CIRC SYS SNOMED Code(s): 851646820 Plan: The patient was seen and examined. His chart and diagnostics were reviewed. The history was obtained from the patient's and mother at his bedside. His case was discussed with Dr. Somers. Patient is currently on Brilinta which will have to be held for at least 5-7 days prior to his tracheostomy and PEG tube placement. Dr. Somers will discuss with Dr. Rodriguez and cardiology regarding the best time to hold the Brilinta. Thank you Dr. Rodriguez for this consult and we'll look for to working with you in the care of your patient. Time with Patient: Greater than 30 <Tyler Somers - Last Filed: 03/30/18 08:53> History of Present Illness History of present illness: Have reviewed the case in detail. Feel tracheostomy is potentially hazardous in the presence of Brilinta. Surgical - Exam Osteopathic Statement: *. No significant issues noted on an osteopathic structural exam other than those noted in the History and Physical/Consult. Vital Signs Temp Pulse Resp BP Pulse Ox 97.0 F L 130 H 12 207/147 95 03/26/18 00:21 03/26/18 00:21 03/26/18 00:21 03/26/18 00:21 03/26/18 00:21 Results - Labs 03/30/18 04:02 03/30/18 04:02 Abnormal Lab Results - Last 24 Hours (Table) 03/30/18 03/30/18 03/30/18 Range/Units 04:02 04:02 05:11 RBC 3.87 L (4.30-5.90) m/uL Hgb 10.9 L (13.0-17.5) gm/dL Hct 33.9 L (39.0-53.0) % Lymphocytes # 0.7 L (1.0-4.8) k/uL ABG pO2 74 L (83-108) mmHg ABG HCO3 26 H (21-25) mmol/L ABG Total CO2 27 H (19-24) mmol/L Chloride 109 H (98-107) mmol/L BUN 26 H (9-20) mg/dL Glucose 115 H (74-99) mg/dL Diabetes panel 03/30/18 Range/Units 04:02 Sodium 143 (137-145) mmol/L Potassium 3.8 (3.5-5.1) mmol/L Chloride 109 H (98-107) mmol/L Carbon Dioxide 25 (22-30) mmol/L BUN 26 H (9-20) mg/dL Creatinine 0.90 (0.66-1.25) mg/dL Glucose 115 H (74-99) mg/dL Calcium 8.7 (8.4-10.2) mg/dL Calcium panel 03/30/18 Range/Units 04:02 Calcium 8.7 (8.4-10.2) mg/dL Phosphorus 3.6 (2.5-4.5) mg/dL Pituitary panel 03/30/18 Range/Units 04:02 Sodium 143 (137-145) mmol/L Potassium 3.8 (3.5-5.1) mmol/L Chloride 109 H (98-107) mmol/L Carbon Dioxide 25 (22-30) mmol/L BUN 26 H (9-20) mg/dL Creatinine 0.90 (0.66-1.25) mg/dL Glucose 115 H (74-99) mg/dL Calcium 8.7 (8.4-10.2) mg/dL Adrenal panel 03/30/18 Range/Units 04:02 Sodium 143 (137-145) mmol/L Potassium 3.8 (3.5-5.1) mmol/L Chloride 109 H (98-107) mmol/L Carbon Dioxide 25 (22-30) mmol/L BUN 26 H (9-20) mg/dL Creatinine 0.90 (0.66-1.25) mg/dL Glucose 115 H (74-99) mg/dL Calcium 8.7 (8.4-10.2) mg/dL
--- NOTE | 2018-03-29 16:39 | CT ---
EXAMINATION TYPE: CT brain wo con DATE OF EXAM: 03/29/2018 COMPARISON: 03/26/2018 HISTORY: 48-year-old male Altered mentation, comatose, vented TECHNIQUE: Examination was done in axial plane without intravenous contrast. Coronal and sagittal r econstructions performed. CT DLP: 1057.5 mGycm Automated exposure control for dose reduction was used. FINDINGS: There is no evidence of acute intracranial hemorrhage, acute ischemic changes, mass, mass-effect, or extra-axial fluid collection. There is no effacement of cerebral sulci or basal subarachnoid cister ns. There is no hydrocephalus. There is no midline shift. Benitez-white matter distinction is preserv ed. Small polyp or mucosal retention cyst left sphenoid sinus. Patient's gaze is divergent compatible wit h underlying strabismus. IMPRESSION: Stable exam. No acute intracranial abnormality seen.
[2018-03-29] MEDS: ATORVASTATIN 80 MG TAB PO SCH (20:02)
[2018-03-29] MEDS: HYDROmorphone 0.5 MG/0.5 ML SYRINGE IVP PRN (22:30)
[2018-03-30] MEDS: PROPOFOL 1,000 MG in EMPTY BAG 1 BAG IV SCH ×3 (00:08→07:07)
[2018-03-30] MEDS: HEPARIN SODIUM,PORCINE 5,000 UNIT/ML 1 ML VIAL SQ SCH ×3 (00:10→15:58)
[2018-03-30] MEDS: IPRATROPIUM-ALBUTEROL 3 ML NEB INHALATION SCH ×5 (03:06→20:16)
[2018-03-30 04:38] LABS: Basophils % (A) 0 %; Eosinophils # (A) 0.1 k/uL (0-0.7); Eosinophils % (A) 1 %; HCT 33.9 % (39.0-53.0); HGB 10.9 gm/dL (13.0-17.5); Lymphocytes # (A) 0.7 k/uL (1.0-4.8); Lymphocytes % (A) 8 %; MCH 28.1 pg (25.0-35.0); MCV 87.7 fL (80.0-100.0); Mean Platelet Volume 7.3; Monocytes # (A) 0.7 k/uL (0-1.0); Monocytes % (A) 8 %; Neutrophils # (A) 7.1 k/uL (1.3-7.7); Neutrophils % (A) 81 %; Platelet Count 237 k/uL (150-450); RBC 3.87 m/uL (4.30-5.90); RDW 13.7 % (11.5-15.5); WBC 8.7 k/uL (3.8-10.6)
[2018-03-30 04:54] LABS: Anion Gap 9 mmol/L; Blood Urea Nitrogen 26 mg/dL (9-20); Calcium 8.7 mg/dL (8.4-10.2); Carbon Dioxide 25 mmol/L (22-30); Chloride 109 mmol/L (98-107); Glucose 115 mg/dL (74-99); Magnesium 2.1 mg/dL (1.6-2.3); Phosphorus 3.6 mg/dL (2.5-4.5); Potassium 3.8 mmol/L (3.5-5.1); Sodium 143 mmol/L (137-145)
[2018-03-30] MEDS ORDERED: Potassium Replacement Protocol 1 EACH MISC MISCELLANE PRN (05:05)
[2018-03-30 05:13] LABS: ABG HCO3 26 mmol/L (21-25); ABG Oxygen Saturation 95.8 % (94-97); ABG PCO2 39 mmHg (35-45); ABG PH 7.44 (7.35-7.45); ABG PO2 74 mmHg (83-108); ABG TCO2 27 mmol/L (19-24)
[2018-03-30] MEDS ORDERED: POTASSIUM BICARBONATE/CIT AC 20 MEQ TABLET.EFF NG-TUBE SCH (06:00)
--- NOTE | 2018-03-30 08:09 | XR ---
EXAMINATION TYPE: XR chest 1V DATE OF EXAM: 03/30/2018 COMPARISON: Prior chest 03/29/2018 HISTORY: Intubated TECHNIQUE: Single frontal view of the chest is obtained. FINDINGS: Endotracheal tube and NG tube are overlying appropriate positions. Tip of the endotracheal tube is approximately 8.1 cm from the manny. Lung volumes are low and the patient is rotated. Heart size is stable. Patchy basilar density again noted. No evident pneumothorax. IMPRESSION: There is no significant interval change compared to prior exam. Suspect basilar atelecta sis. Expiratory rotated exam, follow-up recommended.
[2018-03-30] MEDS: TICAGRELOR 90 MG TAB PO SCH ×2 (08:18→20:10)
[2018-03-30] MEDS: CHLORHEXIDINE GLUCONATE 15 ML CUP MUCOUS MEM SCH ×2 (08:18→20:10)
[2018-03-30] MEDS: LOSARTAN 25 MG TAB PO SCH (08:19)
[2018-03-30] MEDS: ASPIRIN 81 MG PO SCH (08:19)
[2018-03-30] MEDS: PANTOPRAZOLE 40 MG/10 ML VIAL IV SCH (08:19)
[2018-03-30] MEDS: METOPROLOL TARTRATE 25 MG TAB PO SCH ×4 (08:19→21:18)
--- NOTE | 2018-03-30 08:19 | P.PN ---
Subjective Progress Note Date: 03/30/18 Principal diagnosis: Acute coronary syndrome This is a pleasant 48-year-old gentleman who unfortunately had a cardiac arrest at home with a downtime of about 45 minutes. The patient was brought back to normal sinus rhythm and was brought to the emergency room where he underwent an emergent heart catheterization and was found to have occluded right coronary artery which was opened and stented and also severe disease involving the ramus intermedius. Unfortunately the patient might have anoxic encephalopathy. EEG showed moderate to severe encephalopathy. Hemodynamically the patient seems to be stable. He is not on any vasopressors. He is on maximize medical treatment consistent of dual antiplatelet therapy along with high intensity statin. I am going to increase the dose of metoprolol to 25 mg by mouth 3 times a day in the process of tachycardia with a resting heart rate around 100. Objective - Vital Signs Vital signs: Vital Signs Temp 99.8 F H 03/30/18 04:00 Pulse 100 03/30/18 07:35 Resp 26 H 03/30/18 07:16 BP 130/68 03/30/18 07:00 Pulse Ox 95 03/30/18 07:00 Intake & Output 03/29/18 03/30/18 03/30/18 18:59 06:59 18:59 Intake Total 1917 2460.722 200.44 Output Total 630 810 75 Balance 1287 1650.722 125.44 Weight 122 kg 120.4 kg Intake: IV 825 900 75 Sodium Chloride 0.9% 1, 825 900 75 000 ml @ 75 mls/hr IV . [id number] JANAE Rx#:[id number] Intake, IV Titration 100 296.722 63.44 Amount Propofol 1,000 mg In 100 296.722 63.44 Empty Bag 1 bag @ Titrate IV .Q0M JANAE Rx#: [id number] Oral 682 120 Tube Feeding 310 1054 62 Other 90 Output: Urine 630 810 75 Other: Voiding Method Indwelling Catheter Indwelling Catheter - Constitutional General appearance: Present: no acute distress - Respiratory Respiratory: bilateral: CTA - Cardiovascular Rhythm: regular Heart sounds: normal: S1, S2 - Labs CBC & Chem 7: 03/30/18 04:02 03/30/18 04:02 Labs: Abnormal Lab Results - Last 24 Hours (Table) 03/30/18 03/30/18 03/30/18 Range/Units 04:02 04:02 05:11 RBC 3.87 L (4.30-5.90) m/uL Hgb 10.9 L (13.0-17.5) gm/dL Hct 33.9 L (39.0-53.0) % Lymphocytes # 0.7 L (1.0-4.8) k/uL ABG pO2 74 L (83-108) mmHg ABG HCO3 26 H (21-25) mmol/L ABG Total CO2 27 H (19-24) mmol/L Chloride 109 H (98-107) mmol/L BUN 26 H (9-20) mg/dL Glucose 115 H (74-99) mg/dL Assessment and Plan Assessment: Assessment #1 cardiac arrest #2 acute respiratory failure #[address] elevation [place] #4 possible anoxic encephalopathy Plan #1 increase the dose of metoprolol to 25 mg by mouth 3 times a day #2 continue dual antiplatelet therapy along with a statin #3 the echocardiogram was reviewed and revealed mildly impaired LV function #4 follow-up with the patient. Unfortunately there is question regarding anoxic encephalopathy.
--- NOTE | 2018-03-30 11:35 | P.PN ---
Subjective Progress Note Date: 03/30/18 A 48-year-old male patient with status post acute inferior wall myocardial infarction with a subsequent cardiac arrest that was prolonged and the patient is currently in the intensive care unit and the active problem remains altered mental status and possibly hypoxic encephalopathy. The patient as mentioned was taken to the [facility] and the patient underwent emergent cardiac catheterization and 2 stents were inserted in the RCA. The emergent management of the acute ST segment elevation myocardial infarction was performed. The patient however was kept intubated on a mechanical ventilator knowing that he did not demonstrate adequate neurologic recovery. He is currently on assist control mode of ventilation at the rate of 26, FiO2 of 40% with a PEEP of 5 and a tidal volume of 450. The patient also has history of hypertension, hyperlipidemia and obstructive sleep apnea. Over the past 24 hours the patient did not show any significant neurologic recovery and the patient is being seen today on a follow-up On today's evaluation of 03/29/2018, the patient was taken off sedation. After few hours of being off the sedation the patient started bucking on the tube and he was becoming asynchronous with a mechanical ventilator and based on that the sedation was restarted at 30 mics of the prevent. Hemodynamically he is doing extremely well. Making adequate urine output. He is afebrile. No signs of respiratory distress. Neurologically, the patient does not respond or withdrawal to deep painful stimuli. No seizure activity has been noted. He has abdominal were looking gaze. Pupils are equal and reactive to light. He does cough. He does bike on the tube. He is able to tolerate his tube feeds without any major difficulties. The chest x-ray showed adequate positioning of the ET tube and NG tube. The blood gases from today showed a pH of 7.45 with a pCO2 of 36 and pO2 of 83. Rest of the blood work and electrodes are all within normal limits. On 03/30/2018, I'm seeing this patient for a follow-up. He will be given another sedation holiday. This is a daily thing I will monitoring his neurologic functions on a daily basis. As the patient was taken off Diprivan this morning, I examined him and the patient did not respond to any deep painful stimuli noted was following any commands. His Babinski's are still adequate vocal and lower extremities. No stiffness. No hyperreflexia. Pupils are equal and symmetrical around 3-4 mm in size and there is no nystagmus or preferential gaze on today's evaluation. He has a weak but present cough. CAT scan of the brain was repeated yesterday and not show any acute abnormalities. From the hemodynamic standpoint, the patient is very much stable. He is maintaining his own blood pressure. His rhythm is sinus. He has an adequate urine output. The patient is on a mechanical ventilator. He is an assist- control mode of ventilation with a tidal volume 450, an FiO2 of 40% with a PEEP of 5 and a respiratory rate of 26. At times he was found to be double stacking on a mechanical ventilator. He is tidal volume was brought up to 500 and he seems to much more comfortable on this current setting. He is afebrile. He is on a combination of aspirin and Brilinta in regards to his coronary stents. I have consulted cardiac thoracic surgery regarding possibility of doing a PEG and trach at a later stage thinking that this will be a prolonged respiratory failure. There is a concern that the patient may not be able to have this procedure was done 9 that he is on the door combination of antiplatelet agents including Brilinta. This sounded that needs to be further discussed with cardiology and the surgeon was going to perform these procedures for long-term care. Objective - Vital Signs Vital signs: Vital Signs Temp 99.8 F H 03/30/18 08:00 Pulse 81 03/30/18 11:00 Resp 26 H 03/30/18 11:00 BP 148/90 03/30/18 11:00 Pulse Ox 96 03/30/18 11:00 Intake & Output 03/29/18 03/30/18 03/30/18 18:59 06:59 18:59 Intake Total 1917 2460.722 908.224 Output Total 630 810 440 Balance 1287 1650.722 468.224 Weight 122 kg 120.4 kg 116.9 kg Intake: IV 825 900 375 Sodium Chloride 0.9% 1, 825 900 375 000 ml @ 75 mls/hr IV . [id number] [facility] Rx#:[id number] Intake, IV Titration 100 296.722 133.224 Amount Propofol 1,000 mg In 100 296.722 133.224 Empty Bag 1 bag @ Titrate IV .Q0M [facility] Rx#: [id number] Oral 682 120 60 Tube Feeding 310 1054 310 Other 90 30 Output: Urine 630 810 440 Other: Voiding Method Indwelling Catheter Indwelling Catheter Indwelling Catheter - Exam No acute distress, nonresponsive, with an orally placed endotracheal tube and NG tube.. HEENT examination is grossly unremarkable. Mucous membranes are moist. No oral lesions. Pupils are dilated and sluggish. Neck supple. Full range of motion. No adenopathy thyromegaly or neck vein distention. Cardiovascular examination reveals regular rhythm rate. S1-S2 normal. No S3 or S4. No discernible murmur noted. Lungs reveal mostly clear. A few scattered rhonchi noted. Breath sounds equal bilaterally. Abdomen soft bowel sounds are heard. No masses or tenderness. Extremities are intact. No cyanosis clubbing or edema. Skin is without rash or lesion. Neurologic examination is unchanged. He does trigger the ventilator. He does have a gag reflex. No response to verbal or painful stimuli. Pupils are dilated and sluggish. A very minimal corneal reflex. He does not withdraw to deep painful stimulation. The patient does not have any preferential gaze. He does not respond to any deep painful stimulation. Does not respond to any verbal stimulation. No nystagmus. No facial asymmetry. Overall neurologic examination is comparable to the one that was done yesterday. - Labs CBC & Chem 7: 03/30/18 04:02 03/30/18 04:02 Labs: Abnormal Lab Results - Last 24 Hours (Table) 03/30/18 03/30/18 03/30/18 Range/Units 04:02 04:02 05:11 RBC 3.87 L (4.30-5.90) m/uL Hgb 10.9 L (13.0-17.5) gm/dL Hct 33.9 L (39.0-53.0) % Lymphocytes # 0.7 L (1.0-4.8) k/uL ABG pO2 74 L (83-108) mmHg ABG HCO3 26 H (21-25) mmol/L ABG Total CO2 27 H (19-24) mmol/L Chloride 109 H (98-107) mmol/L BUN 26 H (9-20) mg/dL Glucose 115 H (74-99) mg/dL Assessment and Plan Plan: Assessment [address] segment elevation myocardial infarction status post emergent cardiac catheterization and stenting of the RCA, currently on a combination of aspirin and Brilinta. The patient is also on metoprolol 25 mg by mouth 3 times a day and losartan 25 mg by mouth daily. 2 out of hospital cardiopulmonary arrest with a prolonged downtime of 45 minutes with subsequent return of spontaneous circulation. 3 hypoxic/anoxic encephalopathy and the patient remains comatose and unresponsive. He is receiving daily sedation holidays. CAT scan of the brain was repeated yesterday and showed no significant abnormalities compared to the one that was done earlier. 4 acute respiratory failure secondary to above. The patient remains intubated on a mechanical ventilator, but a chest x-ray showing no significant acute abnormalities 5 hyperlipidemia 6 obesity with a BMI of 38.6 7 obstructive sleep apnea 8 hypertension Plan Continue the supportive care. The patient will have daily sedation holidays. We'll continue monitoring his neurologic function is on a regular basis. I do not see any change in his neuro status compared to yesterday and the patient remains deeply comatose without any response to deep painful stimulation. CAT scan of the brain was repeated and did not show any acute abnormalities. Meanwhile, the patient remains on a mechanical ventilator and I increased the tidal volume to 500 to make his breathing more secretions with a mechanical ventilator. Also he is on a combination of antiplatelet agents, statins and beta blockers. I have made recommendations to proceed with a PEG and trach knowing that this will be a prolonged respiratory failure and the patient is unable to overcome his respiratory failure due to his comatose state and poor neurologic functions. I requested the help of Dr. Somers for a PEG and trach. There is an issue with his antiplatelet agent as the surgeon is unable to do procedures while the patient on Brilinta. For that reason further discussion needs to be done with the surgeon and with the cylinder block hole reliner to see what is a good time to do these procedures while off this medication. Nondistended taken the patient off this medication would put him at risk of stent thrombosis. We have not made a final decision regarding the timing of the procedure yet in my opinion the PEG and trach will be needed especially if the treatment is to be continued on a long-term basis. We'll make further recommendations. We'll continue to follow. Continue tube feeds. Continue the rest of the supportive care.. This critically care evaluation was done in 40 minutes. Time with Patient: Greater than 30
[2018-03-30] MEDS: HYDROmorphone 0.5 MG/0.5 ML SYRINGE IVP PRN ×2 (12:05→16:39)
[2018-03-30] MEDS: SODIUM CHLORIDE 0.9% 1,000 ML IV SCH (13:11)
[2018-03-30] MEDS: ATORVASTATIN 80 MG TAB PO SCH (20:10)
--- NOTE | 2018-03-30 21:39 | P.PN ---
Subjective Mr. Pollard is a 48-year-old with a past medical history of hypertension, hyperlipidemia admitted after having cardiopulmonary arrest at home. Before EMS arrived the patient was resuscitated for 10-15 minutes. His initial rhythm was probably V. tach followed by bradycardia and patient had CPR done for around 40 minutes before he got to sinus rhythm. Subsequently upon arrival to [facility] he was taken to the [facility] where he underwent a cardiac catheterization which demonstrated mild nonobstructive disease to his left anterior descending coronary artery, a 70-80% lesion to his circumflex coronary artery, and a totally occluded mid right coronary artery. Patient also underwent successful stenting of his right coronary artery with 2 drug- eluting stents deployed. Currently the patient remains intubated with mechanical ventilator support and is currently sedated on Diprivan drip. Sedation holidays have been attempted and after a few hours of being off sedation the patient becomes agitated and asynchronous with mechanical ventilator support. According to the patient's he has not been responding to noxious stimuli when off the sedation. Subsequently due to patient not being able to tolerate weaning trials and sedation holidays a request has been placed to Dr. Somers from cardiothoracic surgery to evaluate the patient for a tracheostomy and PEG tube placement. Patient has also been started on tube feeds. EEG revealed moderate to severe encephalopathy. review of systems: N/A due to pt condition Objective - Vital Signs Vital signs: Vital Signs Temp 99.2 F 03/30/18 20:00 Pulse 80 03/30/18 21:00 Resp 26 H 03/30/18 21:00 BP 134/86 03/30/18 21:00 Pulse Ox 97 03/30/18 21:00 Intake & Output 03/30/18 03/30/18 03/31/18 06:59 18:59 06:59 Intake Total 2460.722 1977.224 451 Output Total 810 975 285 Balance 2012.804 9099.224 166 Weight 120.4 kg 116.9 kg Intake: IV 900 900 235 Saline Flush for PIV 10 Sodium Chloride 0.9% 1, 900 900 225 000 ml @ 75 mls/hr IV . [id number] [facility] Rx#:[id number] Intake, IV Titration 296.722 133.224 Amount Propofol 1,000 mg In 296.722 133.224 Empty Bag 1 bag @ Titrate IV .Q0M [facility] Rx#: [id number] Oral 120 110 Tube Feeding 1054 744 186 Other 90 90 30 Output: Urine 810 975 285 Other: Voiding Method Indwelling Catheter Indwelling Catheter - Exam No acute distress, nonresponsive, endotracheal tube and NG tube are in place HEENT examination is grossly unremarkable. Mucous membranes are moist. No oral lesions. Pupils are dilated Cardiovascular examination reveals regular rhythm rate. S1-S2 normal. No S3 or S4. No murmur. Lungs: B/L CTA. A few scattered rhonchi noted. Abdomen soft, NT, ND, Positive bowel sounds Extremities. No edema or induration . Skin is without rash or lesion. Neurologic examination: pt is non-responsive. He does have a gag reflex. No response to verbal or painful stimuli. Pupils are dilated. He does not withdraw to deep painful stimulati. He Does not respond to any verbal stimulation. No nystagmus. No facial asymmetry. - Labs CBC & Chem 7: 03/30/18 04:02 03/30/18 04:02 Labs: Abnormal Lab Results - Last 24 Hours (Table) 03/30/18 03/30/18 03/30/18 Range/Units 04:02 04:02 05:11 RBC 3.87 L (4.30-5.90) m/uL Hgb 10.9 L (13.0-17.5) gm/dL Hct 33.9 L (39.0-53.0) % Lymphocytes # 0.7 L (1.0-4.8) k/uL ABG pO2 74 L (83-108) mmHg ABG HCO3 26 H (21-25) mmol/L ABG Total CO2 27 H (19-24) mmol/L Chloride 109 H (98-107) mmol/L BUN 26 H (9-20) mg/dL Glucose 115 H (74-99) mg/dL Assessment and Plan Assessment: cardiac arrest at home , Status post cardiopulmonary resuscitation severe Encephalopathy - due to anoxic brain injury acute PA, inferior STEMI - right coronary artery completely occluded, s/p 2 drug eluting stenting Acute respiratory failure. on vent Acute renal failure -secondary to PA Hyperlipidemia Hypertension Obesity with BMI of 37 Plan: Plan: Patient to be continued on mechanical ventilation. He has been started on tube feeds. Patient had an EEG done showing moderate to severe encephalopathy. We will have to wait and watch for neurological improvement . But overall prognosis is very poor. Patient's family aware of the situation- discussion about trach and PEG tube placement ongoing at this point. Time with Patient: Greater than 30
[2018-03-31] MEDS ORDERED: HEPARIN SODIUM,PORCINE 5,000 UNIT/ML 1 ML VIAL ONE (00:01)
[2018-03-31] MEDS ORDERED: IPRATROPIUM-ALBUTEROL 3 ML NEB ONE ×2 (00:01)
[2018-03-31] MEDS ORDERED: HYDROmorphone 0.5 MG/0.5 ML SYRINGE ONE (00:01)
[2018-03-31] MEDS: IPRATROPIUM-ALBUTEROL 3 ML NEB INHALATION SCH ×6 (05:02→23:28)
[2018-03-31 05:05] LABS: ABG Base Excess 1.6 mmol/L; ABG HCO3 26 mmol/L (21-25); ABG PCO2 38 mmHg (35-45); ABG PH 7.44 (7.35-7.45); ABG PO2 74 mmHg (83-108); ABG TCO2 27 mmol/L (19-24)
[2018-03-31 05:11] LABS: Basophils % (A) 0 %; Eosinophils # (A) 0.1 k/uL (0-0.7); Eosinophils % (A) 1 %; HCT 33.5 % (39.0-53.0); HGB 10.9 gm/dL (13.0-17.5); Lymphocytes # (A) 0.6 k/uL (1.0-4.8); Lymphocytes % (A) 7 %; MCH 28.3 pg (25.0-35.0); MCHC 32.4 g/dL (31.0-37.0); MCV 87.2 fL (80.0-100.0); Mean Platelet Volume 7.7; Monocytes # (A) 0.7 k/uL (0-1.0); Monocytes % (A) 9 %; Neutrophils # (A) 6.8 k/uL (1.3-7.7); Neutrophils % (A) 81 %; Platelet Count 234 k/uL (150-450); RBC 3.84 m/uL (4.30-5.90); RDW 13.6 % (11.5-15.5); WBC 8.4 k/uL (3.8-10.6)
[2018-03-31 05:37] LABS: Anion Gap 9 mmol/L; Blood Urea Nitrogen 27 mg/dL (9-20); Calcium 8.7 mg/dL (8.4-10.2); Carbon Dioxide 25 mmol/L (22-30); Chloride 109 mmol/L (98-107); Glucose 131 mg/dL (74-99); Magnesium 2.2 mg/dL (1.6-2.3); Phosphorus 3.4 mg/dL (2.5-4.5); Potassium 4.1 mmol/L (3.5-5.1); Sodium 143 mmol/L (137-145)
[2018-03-31] MEDS: HYDROmorphone 0.5 MG/0.5 ML SYRINGE IVP PRN ×3 (05:37→22:48)
--- NOTE | 2018-03-31 07:33 | XR ---
EXAMINATION TYPE: XR chest 1V DATE OF EXAM: 03/31/2018 COMPARISON: Prior chest 03/30/2018 HISTORY: Intubated TECHNIQUE: Single frontal view of the chest is obtained. FINDINGS: Endotracheal tube, NG tube are overlying appropriate positions. Patchy basilar density is present bilaterally, airspace disease may be increased in the perihilar regions. Patient is rotated. No evident pneumothorax or sizable effusion. Heart is stable. There are overlying cardiac leads. IMPRESSION: Lung volumes are low and there is possible increasing airspace disease, correlate for pu lmonary edema versus atelectasis, pneumonia. Follow-up recommended.
[2018-03-31] MEDS: SODIUM CHLORIDE 0.9% 1,000 ML IV SCH ×2 (07:48→15:27)
[2018-03-31] MEDS: HEPARIN SODIUM,PORCINE 5,000 UNIT/ML 1 ML VIAL SQ SCH ×4 (07:48→23:51)
[2018-03-31] MEDS: METOPROLOL TARTRATE 25 MG TAB PO SCH ×3 (08:39→21:52)
[2018-03-31] MEDS: TICAGRELOR 90 MG TAB PO SCH ×2 (08:39→20:43)
[2018-03-31] MEDS: CHLORHEXIDINE GLUCONATE 15 ML CUP MUCOUS MEM SCH ×2 (08:39→20:42)
[2018-03-31] MEDS: LOSARTAN 25 MG TAB PO SCH (08:40)
[2018-03-31] MEDS: ASPIRIN 81 MG PO SCH (08:40)
[2018-03-31] MEDS: PANTOPRAZOLE 40 MG/10 ML VIAL IV SCH (08:53)
--- NOTE | 2018-03-31 11:59 | P.PN ---
Progress Note - Text Progress Note Date: 03/31/18 This is a pleasant 48-year-old gentleman who unfortunately had a cardiac arrest at home with a downtime of about 45 minutes. The patient was brought back to normal sinus rhythm and was brought to the emergency room where he underwent an emergent heart catheterization and was found to have occluded right coronary artery which was opened and stented and also severe disease involving the ramus intermedius. Unfortunately the patient might have anoxic encephalopathy. EEG showed moderate to severe encephalopathy. Hemodynamically the patient seems to be stable. He is not on any vasopressors. He is on maximize medical treatment consistent of dual antiplatelet therapy along with high intensity statin. I did increase the dose of metoprolol yesterday because he was slightly tachycardic and the heart rate has improved and currently he has been maintaining heart rate in the 80s. The blood pressure is around 140 mmHg. From the cardiac vascular standpoint overview, we'll continue the current medical regimen. I am going to increase the dose of losartan to 50 mg daily for better blood pressure control.
[2018-03-31] MEDS ORDERED: FUROSEMIDE 10 MG/ML 4 ML VIAL IV STA (13:46)
--- NOTE | 2018-03-31 13:46 | P.PN ---
Subjective Progress Note Date: 03/31/18 A 48-year-old male patient with status post acute inferior wall myocardial infarction with a subsequent cardiac arrest that was prolonged and the patient is currently in the intensive care unit and the active problem remains altered mental status and possibly hypoxic encephalopathy. The patient as mentioned was taken to the [facility] and the patient underwent emergent cardiac catheterization and 2 stents were inserted in the RCA. The emergent management of the acute ST segment elevation myocardial infarction was performed. The patient however was kept intubated on a mechanical ventilator knowing that he did not demonstrate adequate neurologic recovery. He is currently on assist control mode of ventilation at the rate of 26, FiO2 of 40% with a PEEP of 5 and a tidal volume of 450. The patient also has history of hypertension, hyperlipidemia and obstructive sleep apnea. Over the past 24 hours the patient did not show any significant neurologic recovery and the patient is being seen today on a follow-up On today's evaluation of 03/29/2018, the patient was taken off sedation. After few hours of being off the sedation the patient started bucking on the tube and he was becoming asynchronous with a mechanical ventilator and based on that the sedation was restarted at 30 mics of the prevent. Hemodynamically he is doing extremely well. Making adequate urine output. He is afebrile. No signs of respiratory distress. Neurologically, the patient does not respond or withdrawal to deep painful stimuli. No seizure activity has been noted. He has abdominal were looking gaze. Pupils are equal and reactive to light. He does cough. He does bike on the tube. He is able to tolerate his tube feeds without any major difficulties. The chest x-ray showed adequate positioning of the ET tube and NG tube. The blood gases from today showed a pH of 7.45 with a pCO2 of 36 and pO2 of 83. Rest of the blood work and electrodes are all within normal limits. On 03/30/2018, I'm seeing this patient for a follow-up. He will be given another sedation holiday. This is a daily thing I will monitoring his neurologic functions on a daily basis. As the patient was taken off Diprivan this morning, I examined him and the patient did not respond to any deep painful stimuli noted was following any commands. His Babinski's are still adequate vocal and lower extremities. No stiffness. No hyperreflexia. Pupils are equal and symmetrical around 3-4 mm in size and there is no nystagmus or preferential gaze on today's evaluation. He has a weak but present cough. CAT scan of the brain was repeated yesterday and not show any acute abnormalities. From the hemodynamic standpoint, the patient is very much stable. He is maintaining his own blood pressure. His rhythm is sinus. He has an adequate urine output. The patient is on a mechanical ventilator. He is an assist- control mode of ventilation with a tidal volume 450, an FiO2 of 40% with a PEEP of 5 and a respiratory rate of 26. At times he was found to be double stacking on a mechanical ventilator. He is tidal volume was brought up to 500 and he seems to much more comfortable on this current setting. He is afebrile. He is on a combination of aspirin and Brilinta in regards to his coronary stents. I have consulted cardiac thoracic surgery regarding possibility of doing a PEG and trach at a later stage thinking that this will be a prolonged respiratory failure. There is a concern that the patient may not be able to have this procedure was done 9 that he is on the door combination of antiplatelet agents including Brilinta. This sounded that needs to be further discussed with cardiology and the surgeon was going to perform these procedures for long-term care. On 03/31/2018 the patient is being seen for a follow-up. The patient has been off sedation for the past 24 hours. I was able to get this patient off Diprivan. Unfortunately there has been no signs or changes in his neurologic functions at all. The patient remains completely unresponsive and comatose. He does not respond to deep painful stimulation. He will occasionally opens up his eyes spontaneously and he does have a preferential gaze upwards. Clinically , the patient does not have any seizures. No purposeful body activity. Still on a mechanical ventilator assist control mode at the rate of 26 with a tidal volume of 500 and FiO2 of 35% and a PEEP of 5. The chest x-ray from today shows lung volumes are low and this is some increased airspace disease in the lung bases more so on the right. The patient was having increased respiratory secretions and sputum sent for cultures. His white cell count is not elevated at 8.4. He did have a low-grade temperature 100.3 yesterday and currently is afebrile at 99.0. The blood from today showed a pH of 7.44 with a pCO2 of 38 and pO2 of 74 and he is still on FiO2 of 35% and there is no worsening in his oxygenation over the past 24 hours. Hemodynamically stable. Still on a normal saline infusion at the rate of 75 mL an hour. Developed some increased edema in lower extremities bilaterally. There is also some puffiness in the upper extremities especially in the hands. He remains on aspirin, Brilinta, metoprolol, losartan. A repeat EEG was done today and we are still waiting for the final interpretation by neurology. Neurology. Objective - Vital Signs Vital signs: Vital Signs Temp 99 F 03/31/18 12:00 Pulse 94 03/31/18 12:00 Resp 26 H 03/31/18 12:00 BP 164/91 03/31/18 12:00 Pulse Ox 94 L 03/31/18 12:00 Intake & Output 03/30/18 03/31/18 03/31/18 18:59 06:59 18:59 Intake Total 5406.422 6586 689 Output Total 975 630 620 Balance 1002.224 550 69 Weight 116.9 kg 119 kg 119 kg Intake: IV 900 470 460 Saline Flush for PIV 20 10 Sodium Chloride 0.9% 1, 900 450 450 000 ml @ 75 mls/hr IV . [id number] [facility] Rx#:[id number] Intake, IV Titration 133.224 Amount Propofol 1,000 mg In 133.224 Empty Bag 1 bag @ Titrate IV .Q0M [facility] Rx#: [id number] Oral 110 Tube Feeding 744 620 199 Other 90 90 30 Output: Urine 975 630 620 Other: Voiding Method Indwelling Catheter Indwelling Catheter Indwelling Catheter - Exam No acute distress, nonresponsive, with an orally placed endotracheal tube and NG tube.. HEENT examination is grossly unremarkable. Mucous membranes are moist. No oral lesions. Pupils are dilated and sluggish. Neck supple. Full range of motion. No adenopathy thyromegaly or neck vein distention. Cardiovascular examination reveals regular rhythm rate. S1-S2 normal. No S3 or S4. No discernible murmur noted. Lungs reveal mostly clear. A few scattered rhonchi noted. Breath sounds equal bilaterally. Abdomen soft bowel sounds are heard. No masses or tenderness. Extremities are intact. No cyanosis clubbing or edema. Skin is without rash or lesion. Neurologic examination is unchanged. The patient remains comatose and there is no change in the mentation over the past 24 hours even while the patient being off Diprivan. - Labs CBC & Chem 7: 03/31/18 04:21 03/31/18 04:21 Labs: Abnormal Lab Results - Last 24 Hours (Table) 03/31/18 03/31/18 03/31/18 Range/Units 04:21 04:21 04:24 RBC 3.84 L (4.30-5.90) m/uL Hgb 10.9 L (13.0-17.5) gm/dL Hct 33.5 L (39.0-53.0) % Lymphocytes # 0.6 L (1.0-4.8) k/uL ABG pO2 74 L (83-108) mmHg ABG HCO3 26 H (21-25) mmol/L ABG Total CO2 27 H (19-24) mmol/L Chloride 109 H (98-107) mmol/L BUN 27 H (9-20) mg/dL Glucose 131 H (74-99) mg/dL Assessment and Plan Plan: Assessment [address] segment elevation myocardial infarction status post emergent cardiac catheterization and stenting of the RCA, currently on a combination of aspirin and Brilinta. The patient is also on metoprolol 25 mg by mouth 3 times a day and losartan 25 mg by mouth daily. 2 out of hospital cardiopulmonary arrest with a prolonged downtime of 45 minutes with subsequent return of spontaneous circulation. 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 4 acute respiratory failure secondary to above. The patient remains intubated on a mechanical ventilator, but a chest x-ray showing limited infiltrate in the lung bases bilaterally, possibly atelectatic changes versus fluid. Superimposed pneumonia is felt to be less likely 5 hyperlipidemia 6 obesity with a BMI of 38.6 7 obstructive sleep apnea 8 hypertension 9 low-grade temperature, currently afebrile Plan Patient remains deeply comatose without any signs of neurologic recovery. Repeat EEG today. CAT scan done on 03/29/2018 shows no new findings and the findings are essentially stable. Continue vent support. I elected discussion with the patient's . She is not ready to stop the treatment at this point. She is more inclined of getting this patient some more time and I think ultimately and the PEG and trach will be needed to continue supporting his pulmonary status as well as we are watching and monitoring his neurologic functions. The timing for the PEG and trach will be discussed again with the fire official and the surgeon. The issue that the patient on dual antiplatelet agents that are needed for patency of the coronary stent. We may ultimately make a decision to stop the Brilinta to be followed up by a tracheostomy tube insertion as I anticipated the patient will ultimately need long-term vent support. Prognosis poor. We'll set up a meeting between this neurologist and the family to discuss further treatment options and prognosis. We'll continue to follow. Meanwhile, we'll give the patient dose of Lasix 40 mg IV push. Repeat chest x-ray in the morning. Monitor the fever pattern. Awaiting sputum Gram stain and culture. May add antibiotics if fever pattern continues. We'll follow. Critical care evaluation, more than 35 minutes. Time with Patient: Greater than 30
--- NOTE | 2018-03-31 16:47 | P.PN ---
Subjective Mr. Pollard is a 48-year-old with a past medical history of hypertension, hyperlipidemia admitted after having cardiopulmonary arrest at home. Before EMS arrived the patient was resuscitated for 10-15 minutes. His initial rhythm was probably V. tach followed by bradycardia and patient had CPR done for around 40 minutes before he got to sinus rhythm. Subsequently upon arrival to [facility] he was taken to the [facility] where he underwent a cardiac catheterization which demonstrated mild nonobstructive disease to his left anterior descending coronary artery, a 70-80% lesion to his circumflex coronary artery, and a totally occluded mid right coronary artery. Patient also underwent successful stenting of his right coronary artery with 2 drug- eluting stents deployed. Currently the patient remains intubated with mechanical ventilator support and is currently sedated on Diprivan drip. Sedation holidays have been attempted and after a few hours of being off sedation the patient becomes agitated and asynchronous with mechanical ventilator support. According to the patient's he has not been responding to noxious stimuli when off the sedation. Subsequently due to patient not being able to tolerate weaning trials and sedation holidays a request has been placed to Dr. Somers from cardiothoracic surgery to evaluate the patient for a tracheostomy and PEG tube placement. Patient has also been started on tube feeds. EEG revealed moderate to severe encephalopathy. review of systems: N/A due to pt condition 03/31/2018 Patient still in the ICU. He is still intubated. He was given a trial of sedation since morning and patient still nonresponsive to verbal stimuli. And he is responding to sternal rub my only partial blink. Pupils still slightly dilated but they are reactive to light. He spiking low-grade temperature 100. Still considering the plan for PEG/tracheostomy placement by other consultants and family Objective - Vital Signs Vital signs: Vital Signs Temp 99 F 03/31/18 12:00 Pulse 98 03/31/18 15:36 Resp 26 H 03/31/18 15:00 BP 158/88 03/31/18 15:00 Pulse Ox 94 L 03/31/18 15:00 Intake & Output 03/30/18 03/31/18 03/31/18 18:59 06:59 18:59 Intake Total 2714.861 1569 1099 Output Total 074 755 6854 Balance 1002.224 550 -691 Weight 116.9 kg 119 kg 119 kg Intake: IV 900 470 540 Saline Flush for PIV 20 10 Sodium Chloride 0.9% 1, 900 450 530 000 ml @ 20 mls/hr IV . Q24H [facility] Rx#:[id number] Intake, IV Titration 133.224 Amount Propofol 1,000 mg In 133.224 Empty Bag 1 bag @ Titrate IV .Q0M [facility] Rx#: [id number] Oral 110 Tube Feeding 744 620 499 Other 90 90 60 Output: Urine 391 012 9817 Other: Voiding Method Indwelling Catheter Indwelling Catheter Indwelling Catheter - Exam No acute distress, nonresponsive, endotracheal tube and NG tube are in place HEENT examination is grossly unremarkable. Mucous membranes are moist. No oral lesions. Pupils are dilated Cardiovascular examination reveals regular rhythm rate. S1-S2 normal. No S3 or S4. No murmur. Lungs: B/L CTA. A few scattered rhonchi noted. Abdomen soft, NT, ND, Positive bowel sounds Extremities. No edema or induration . Skin is without rash or lesion. Neurologic examination: pt is non-responsive. He does have a gag reflex. No response to verbal or painful stimuli. Pupils are dilated. He does not withdraw to deep painful stimulati. He Does not respond to any verbal stimulation. No nystagmus. No facial asymmetry. - Labs CBC & Chem 7: 03/31/18 04:21 03/31/18 04:21 Labs: Abnormal Lab Results - Last 24 Hours (Table) 03/31/18 03/31/18 03/31/18 Range/Units 04:21 04:21 04:24 RBC 3.84 L (4.30-5.90) m/uL Hgb 10.9 L (13.0-17.5) gm/dL Hct 33.5 L (39.0-53.0) % Lymphocytes # 0.6 L (1.0-4.8) k/uL ABG pO2 74 L (83-108) mmHg ABG HCO3 26 H (21-25) mmol/L ABG Total CO2 27 H (19-24) mmol/L Chloride 109 H (98-107) mmol/L BUN 27 H (9-20) mg/dL Glucose 131 H (74-99) mg/dL Microbiology - Last 24 Hours (Table) 03/31/18 00:21 Gram Stain - Preliminary Sputum Sputum Culture - Preliminary Assessment and Plan Assessment: cardiac arrest at home , Status post cardiopulmonary resuscitation severe Encephalopathy - due to anoxic brain injury acute NM, inferior STEMI - right coronary artery completely occluded, s/p 2 drug eluting stenting Acute respiratory failure. on vent Acute renal failure -secondary to NM Hyperlipidemia Hypertension Obesity with BMI of 37 Plan: Plan: Patient to be continued on mechanical ventilation. He has been started on tube feeds. Patient had an EEG done showing moderate to severe encephalopathy. We will have to wait and watch for neurological improvement . But overall prognosis is very poor. Patient's family aware of the situation- discussion about trach and PEG tube placement ongoing at this point.
--- NOTE | 2018-03-31 17:59 | EEG ---
ELECTROENCEPHALOGRAM REPORT DATE OF SERVICE: 03/31/2019. REASON FOR TESTING: Unresponsiveness, status post cardiac arrest. DESCRIPTION OF THE PROCEDURE: This EEG was performed using a 21 channel digital electroencephalograph, following international 10-20 system. DESCRIPTION OF THE RECORDING: From the beginning of the tracing, and with patient's eyes closed, the background rhythm was mostly consisting of 6 Hz theta frequency in the posterior occipital leads. Occasional slowing into the delta range was seen. Photic stimulation was performed with no driving response seen. No pathological waves were elicited. Rare sharp wave activity is seen in the left frontotemporal region. No generalized epileptiform discharges were seen. Hyperventilation was not performed. His EKG lead showed a regular rate and rhythm. INTERPRETATION: This EEG is abnormal due to the presence of generalized slowing of the background rhythm, mostly in the theta range. There was occasional slowing into the delta range. This is consistent with a moderate to severe encephalopathy. No generalized epileptiform discharges were seen, but occasional sharp wave activity is seen in the left frontotemporal region, mostly consistent with a reduced seizure threshold. Overall, this EEG is felt to be unchanged when compared to his 03/26/2018 study. Clinical correlation is recommended. MMODL / IJN: [id number] /
[2018-03-31] MEDS: ATORVASTATIN 80 MG TAB PO SCH (20:42)
[2018-04-01] MEDS: HYDROmorphone 0.5 MG/0.5 ML SYRINGE IVP PRN ×4 (02:54→21:23)
[2018-04-01] MEDS: IPRATROPIUM-ALBUTEROL 3 ML NEB INHALATION SCH ×6 (03:27→23:12)
[2018-04-01 04:22] LABS: ABG Base Excess 3.7 mmol/L; ABG HCO3 28 mmol/L (21-25); ABG Oxygen Saturation 96.1 % (94-97); ABG PCO2 41 mmHg (35-45); ABG PH 7.44 (7.35-7.45); ABG PO2 78 mmHg (83-108); ABG TCO2 29 mmol/L (19-24)
[2018-04-01 05:22] LABS: Basophils % (A) 0 %; Eosinophils # (A) 0.2 k/uL (0-0.7); Eosinophils % (A) 1 %; HCT 36.2 % (39.0-53.0); HGB 11.9 gm/dL (13.0-17.5); Lymphocytes # (A) 0.7 k/uL (1.0-4.8); Lymphocytes % (A) 6 %; MCH 28.7 pg (25.0-35.0); MCHC 32.9 g/dL (31.0-37.0); MCV 87.3 fL (80.0-100.0); Mean Platelet Volume 7.3; Monocytes # (A) 0.7 k/uL (0-1.0); Monocytes % (A) 6 %; Neutrophils # (A) 9.2 k/uL (1.3-7.7); Neutrophils % (A) 84 %; Platelet Count 305 k/uL (150-450); RBC 4.15 m/uL (4.30-5.90); RDW 13.3 % (11.5-15.5)
[2018-04-01 05:35] LABS: Prothrombin Time 10.2 sec (9.0-12.0)
[2018-04-01 05:52] LABS: ALT 106 U/L (21-72); AST 91 U/L (17-59); Albumin 3.1 g/dL (3.5-5.0); Alkaline Phosphatase 149 U/L (38-126); Anion Gap 10 mmol/L; Blood Urea Nitrogen 31 mg/dL (9-20); Carbon Dioxide 27 mmol/L (22-30); Chloride 104 mmol/L (98-107); Glucose 144 mg/dL (74-99); Magnesium 2.3 mg/dL (1.6-2.3); Phosphorus 3.6 mg/dL (2.5-4.5); Sodium 141 mmol/L (137-145); Total Bilirubin 0.4 mg/dL (0.2-1.3); Total Protein 5.9 g/dL (6.3-8.2)
[2018-04-01] MEDS: ASPIRIN 81 MG PO SCH (08:32)
[2018-04-01] MEDS: HEPARIN SODIUM,PORCINE 5,000 UNIT/ML 1 ML VIAL SQ SCH ×3 (08:32→23:27)
[2018-04-01] MEDS: CHLORHEXIDINE GLUCONATE 15 ML CUP MUCOUS MEM SCH ×2 (08:33→20:20)
[2018-04-01] MEDS: PANTOPRAZOLE 40 MG/10 ML VIAL IV SCH (08:33)
[2018-04-01] MEDS: LOSARTAN 50 MG TAB PO SCH (08:33)
[2018-04-01] MEDS: TICAGRELOR 90 MG TAB PO SCH ×2 (08:33→20:20)
[2018-04-01] MEDS: METOPROLOL TARTRATE 25 MG TAB PO SCH ×3 (08:34→20:23)
--- NOTE | 2018-04-01 08:37 | P.PN ---
Subjective Progress Note Date: 04/01/18 Principal diagnosis: Acute coronary syndrome This is a pleasant 48-year-old gentleman who unfortunately had a cardiac arrest at home with a downtime of about 45 minutes. The patient was brought back to normal sinus rhythm and was brought to the emergency room where he underwent an emergent heart catheterization and was found to have occluded right coronary artery which was opened and stented and also severe disease involving the ramus intermedius. Unfortunately the patient might have anoxic encephalopathy. EEG showed moderate to severe encephalopathy. The team met the family yesterday and discussed with them the finding of the EEG as well as the prognosis. Hemodynamically the patient continues to be stable on the current medical regimen. The heart rate and blood pressure has been under good control. Objective - Vital Signs Vital signs: Vital Signs Temp 99.8 F H 04/01/18 04:00 Pulse 94 04/01/18 07:44 Resp 26 H 04/01/18 07:00 BP 154/92 04/01/18 07:00 Pulse Ox 95 04/01/18 07:00 Intake & Output 03/31/18 04/01/18 04/01/18 18:59 06:59 18:59 Intake Total 1139 1380 95 Output Total 2390 1290 75 Balance -1251 90 20 Weight 119 kg 118.5 kg Intake: IV 580 240 20 Saline Flush for PIV 10 Sodium Chloride 0.9% 1, 570 240 20 000 ml @ 20 mls/hr IV . Q24H [facility] Rx#:[id number] Tube Feeding 499 1050 75 Other 60 90 Output: Urine 2390 1290 75 Other: Voiding Method Indwelling Catheter Indwelling Catheter - Constitutional General appearance: Present: no acute distress - Respiratory Respiratory: bilateral: CTA - Cardiovascular Rhythm: regular Heart sounds: normal: S1, S2 - Labs CBC & Chem 7: 04/01/18 04:37 04/01/18 04:36 Labs: Abnormal Lab Results - Last 24 Hours (Table) 04/01/18 04/01/18 04/01/18 Range/Units 04:20 04:36 04:37 WBC 11.0 H (3.8-10.6) k/uL RBC 4.15 L (4.30-5.90) m/uL Hgb 11.9 L (13.0-17.5) gm/dL Hct 36.2 L (39.0-53.0) % Neutrophils # 9.2 H (1.3-7.7) k/uL Lymphocytes # 0.7 L (1.0-4.8) k/uL ABG pO2 78 L (83-108) mmHg ABG HCO3 28 H (21-25) mmol/L ABG Total CO2 29 H (19-24) mmol/L BUN 31 H (9-20) mg/dL Glucose 144 H (74-99) mg/dL AST 91 H (17-59) U/L ALT 106 H (21-72) U/L Alkaline Phosphatase 149 H (38-126) U/L Total Protein 5.9 L (6.3-8.2) g/dL Albumin 3.1 L (3.5-5.0) g/dL Microbiology - Last 24 Hours (Table) 03/31/18 00:21 Gram Stain - Preliminary Sputum Sputum Culture - Preliminary Assessment and Plan Assessment: Assessment #1 cardiac arrest #2 acute respiratory failure #[address] elevation MA #4 possible anoxic encephalopathy Plan #1 continue the current medical regimen. #2 continue dual antiplatelet therapy along with a statin #3 the echocardiogram was reviewed and revealed mildly impaired LV function #4 follow-up with the patient. Unfortunately there is question regarding anoxic encephalopathy.
--- NOTE | 2018-04-01 09:29 | XR ---
EXAMINATION TYPE: XR chest 1V portable DATE OF EXAM: 04/01/2018 COMPARISON: Prior chest 03/31/2018 HISTORY: Vent management, intubated TECHNIQUE: Single frontal view of the chest is obtained. FINDINGS: Endotracheal tube, NG tube remain in place, lung volumes are low. Patchy bibasilar density again noted. No evident pneumothorax. Cardiomediastinal silhouette not significantly changed. IMPRESSION: Findings are similar to prior exam. Expiratory exam, probable basilar atelectasis, corre late to exclude pneumonia.
[2018-04-01] MEDS: SODIUM CHLORIDE 0.9% 1,000 ML IV SCH (15:14)
[2018-04-01] MEDS: PIPERACILLIN-TAZOBACTAM 3.375 GM in DEXTROSE/WATER 1 50ML.BAG IVPB SCH ×2 (15:15→23:27)
[2018-04-01] MEDS: ACETAMINOPHEN TAB 500 MG TAB PO PRN ×2 (15:21→20:20)
--- NOTE | 2018-04-01 17:17 | P.PN ---
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 The patient as mentioned was taken to the [facility] and the patient underwent emergent cardiac catheterization and 2 stents were inserted in the RCA. The emergent management of the acute ST segment elevation myocardial infarction was performed. The patient however was kept intubated on a mechanical ventilator knowing that he did not demonstrate adequate neurologic recovery. He is currently on assist control mode of ventilation at the rate of 26, FiO2 of 40% with a PEEP of 5 and a tidal volume of 450. The patient also has history of hypertension, hyperlipidemia and obstructive sleep apnea. Over the past 24 hours the patient did not show any significant neurologic recovery and the patient is being seen today on a follow-up On today's evaluation of 03/29/2018, the patient was taken off sedation. After few hours of being off the sedation the patient started bucking on the tube and he was becoming asynchronous with a mechanical ventilator and based on that the sedation was restarted at 30 mics of the prevent. Hemodynamically he is doing extremely well. Making adequate urine output. He is afebrile. No signs of respiratory distress. Neurologically, the patient does not respond or withdrawal to deep painful stimuli. No seizure activity has been noted. He has abdominal were looking gaze. Pupils are equal and reactive to light. He does cough. He does bike on the tube. He is able to tolerate his tube feeds without any major difficulties. The chest x-ray showed adequate positioning of the ET tube and NG tube. The blood gases from today showed a pH of 7.45 with a pCO2 of 36 and pO2 of 83. Rest of the blood work and electrodes are all within normal limits. On 03/30/2018, I'm seeing this patient for a follow-up. He will be given another sedation holiday. This is a daily thing I will monitoring his neurologic functions on a daily basis. As the patient was taken off Diprivan this morning, I examined him and the patient did not respond to any deep painful stimuli noted was following any commands. His Babinski's are still adequate vocal and lower extremities. No stiffness. No hyperreflexia. Pupils are equal and symmetrical around 3-4 mm in size and there is no nystagmus or preferential gaze on today's evaluation. He has a weak but present cough. CAT scan of the brain was repeated yesterday and not show any acute abnormalities. From the hemodynamic standpoint, the patient is very much stable. He is maintaining his own blood pressure. His rhythm is sinus. He has an adequate urine output. The patient is on a mechanical ventilator. He is an assist- control mode of ventilation with a tidal volume 450, an FiO2 of 40% with a PEEP of 5 and a respiratory rate of 26. At times he was found to be double stacking on a mechanical ventilator. He is tidal volume was brought up to 500 and he seems to much more comfortable on this current setting. He is afebrile. He is on a combination of aspirin and Brilinta in regards to his coronary stents. I have consulted cardiac thoracic surgery regarding possibility of doing a PEG and trach at a later stage thinking that this will be a prolonged respiratory failure. There is a concern that the patient may not be able to have this procedure was done 9 that he is on the door combination of antiplatelet agents including Brilinta. This sounded that needs to be further discussed with cardiology and the surgeon was going to perform these procedures for long-term care. On 03/31/2018 the patient is being seen for a follow-up. The patient has been off sedation for the past 24 hours. I was able to get this patient off Diprivan. Unfortunately there has been no signs or changes in his neurologic functions at all. The patient remains completely unresponsive and comatose. He does not respond to deep painful stimulation. He will occasionally opens up his eyes spontaneously and he does have a preferential gaze upwards. Clinically , the patient does not have any seizures. No purposeful body activity. Still on a mechanical ventilator assist control mode at the rate of 26 with a tidal volume of 500 and FiO2 of 35% and a PEEP of 5. The chest x-ray from today shows lung volumes are low and this is some increased airspace disease in the lung bases more so on the right. The patient was having increased respiratory secretions and sputum sent for cultures. His white cell count is not elevated at 8.4. He did have a low-grade temperature 100.3 yesterday and currently is afebrile at 99.0. The blood from today showed a pH of 7.44 with a pCO2 of 38 and pO2 of 74 and he is still on FiO2 of 35% and there is no worsening in his oxygenation over the past 24 hours. Hemodynamically stable. Still on a normal saline infusion at the rate of 75 mL an hour. Developed some increased edema in lower extremities bilaterally. There is also some puffiness in the upper extremities especially in the hands. He remains on aspirin, Brilinta, metoprolol, losartan. A repeat EEG was done today and we are still waiting for the final interpretation by neurology. On 04/01/2018 the patient remains intubated on a mechanical ventilator. Essentially no change in his condition. Off sedation. Neurologically impaired and comatose unresponsive to any verbal or painful stimulation. On one occasion the patient had a decerebrate posture. He is having low-grade fever. Chest x-ray raises the concern for a right lower lobe pneumonia and the patient will be started on broad-spectrum antibiotics with IV Zosyn. Sputum cultures also showing strep species group A. White cell count is not elevated. The blood gases showed a pH of 7.4 with a pCO2 of 41 and pO2 of 78 on a 35% FiO2. EEG is showing generalized slowing mostly in the range and there is no evidence of any epileptiform focus and overall there is no change in the EEG findings compared to the one that was done on 03/26/2018. He was dynamically stable. Producing adequate urine output. Tolerating tube feeds. Objective - Vital Signs Vital signs: Vital Signs Temp 100.3 F H 04/01/18 15:00 Pulse 110 H 04/01/18 16:28 Resp 28 H 04/01/18 16:00 BP 132/75 04/01/18 16:00 Pulse Ox 95 04/01/18 16:00 Intake & Output 03/31/18 04/01/18 04/01/18 18:59 06:59 18:59 Intake Total 1139 1380 1040 Output Total 2390 1290 700 Balance -1251 90 340 Weight 119 kg 118.5 kg Intake: IV 580 240 200 Saline Flush for PIV 10 Sodium Chloride 0.9% 1, 570 240 200 000 ml @ 20 mls/hr IV . Q24H [facility] Rx#:[id number] Tube Feeding 499 1050 750 Other 60 90 90 Output: Urine 2390 1290 700 Other: Voiding Method Indwelling Catheter Indwelling Catheter Indwelling Catheter - Exam No acute distress, nonresponsive, with an orally placed endotracheal tube and NG tube.. HEENT examination is grossly unremarkable. Mucous membranes are moist. No oral lesions. Pupils are dilated and sluggish. Neck supple. Full range of motion. No adenopathy thyromegaly or neck vein distention. Cardiovascular examination reveals regular rhythm rate. S1-S2 normal. No S3 or S4. No discernible murmur noted. Lungs reveal mostly clear. A few scattered rhonchi noted. Breath sounds equal bilaterally. Abdomen soft bowel sounds are heard. No masses or tenderness. Extremities are intact. No cyanosis clubbing or edema. Skin is without rash or lesion. Neurologic examination is unchanged. The patient remains comatose and there is no change in the mentation over the past 24 hours even while the patient being off Diprivan. - Labs CBC & Chem 7: 04/01/18 04:37 04/01/18 04:36 Labs: Abnormal Lab Results - Last 24 Hours (Table) 04/01/18 04/01/18 04/01/18 Range/Units 04:20 04:36 04:37 WBC 11.0 H (3.8-10.6) k/uL RBC 4.15 L (4.30-5.90) m/uL Hgb 11.9 L (13.0-17.5) gm/dL Hct 36.2 L (39.0-53.0) % Neutrophils # 9.2 H (1.3-7.7) k/uL Lymphocytes # 0.7 L (1.0-4.8) k/uL ABG pO2 78 L (83-108) mmHg ABG HCO3 28 H (21-25) mmol/L ABG Total CO2 29 H (19-24) mmol/L BUN 31 H (9-20) mg/dL Glucose 144 H (74-99) mg/dL AST 91 H (17-59) U/L ALT 106 H (21-72) U/L Alkaline Phosphatase 149 H (38-126) U/L Total Protein 5.9 L (6.3-8.2) g/dL Albumin 3.1 L (3.5-5.0) g/dL Microbiology - Last 24 Hours (Table) 03/31/18 00:21 Gram Stain - Preliminary Sputum Sputum Culture - Preliminary Strep pyogenes (grp a) Assessment and Plan Plan: Assessment [address] segment elevation myocardial infarction status post emergent cardiac catheterization and stenting of the RCA, currently on a combination of aspirin and Brilinta. The patient is also on metoprolol 25 mg by mouth 3 times a day and losartan 25 mg by mouth daily. 2 out of hospital cardiopulmonary arrest with a prolonged downtime of 45 minutes with subsequent return of spontaneous circulation. 3 comatose state secondary to anoxic encephalopathy, currently off sedation without any obvious change in his neurologic status and functions over the past 48 hours to 72 hours. 4 acute respiratory failure secondary to above. The patient remains intubated on a mechanical ventilator, but a chest x-ray showing limited infiltrate in the lung bases bilaterally, possibly atelectatic changes versus fluid. Superimposed pneumonia is felt to be less likely 5 hyperlipidemia 6 obesity with a BMI of 38.6 7 obstructive sleep apnea 8 hypertension 9 right lower lobe pneumonia suspected cultures are positive for strep and the patient was started on IV Zosyn. Hemodynamically stable and low-grade fevers. Plan The patient is not showing any signs of neurologic recovery. He remains deeply comatose. He remains unresponsive. Prognosis remains poor. EEG findings were noted. The patient was started on IV Zosyn. Continue vent support. Continue respiratory care. Continue enteral feeding. We'll ask Dr. Cruz to evaluate this patient. Prognosis remains extremely poor.
--- NOTE | 2018-04-01 20:19 | P.CNNES ---
History of Present Illness Consult date: 04/01/18 Reason for Consult: Patient with cardiac arrest and remains intubated and comatose. History of Present Illness: This patient is a 48-year-old right-handed white male who is seen today in the intensive care unit room 617 bed 1 at the request of Dr. Rodriguez Critical Care Coil Machine Supervisor. Akira Pollard is a 48-year-old male who suffered an acute inferior wall myocardial infarction with subsequent cardiac arrest and prolonged downtime of 45 minutes on 03/26/2018. The patient was seen initially on neurology consultation by Dr. Varela on 03/26/2018. The patient has remained intubated following his cardiac arrest and remains unresponsive and comatose in the intensive care unit. Dr. Varela is out of the country and Dr. Rodriguez requested another neurological opinion today in terms of his neurological status. Patient is undergone 2 CT scans of the brain initially on 03/26/2018 and subsequently on 03/29/2018 which reveals no acute intracranial abnormalities on both scans. Patient is also undergone 2 EEG studies on 2017 as well as 03/31/2018 results of which indicated generalized slowing of the background in the theta range dropping into the delta range as well suggesting moderate to severe encephalopathy. Given this patient's history of cardiac arrest this is likely moderate severe degree of anoxic encephalopathy following his cardiac arrest. The patient has been off of all sedation for the past 2 days. He has not shown any significant change in his neurological status and remains comatose. Neurology was consulted today for reassessment of his overall neurological status. We reviewed both CT scans of the brain in both EEG studies in detail for discussion with the family today. The patient apparently had a downtime of at least 45 minutes according to the ICU notes. He did undergo cardiac catheterization and had 2 stents placed to the RCA. He has been placed on Brilinta by cardiology following this procedure. According to the ICU nursing staff cardiothoracic surgery was consulted for possibility of tracheostomy and PEG tube placement yesterday however they will not perform this procedure if the patient remains on Brilinta. The patient remains unresponsive in the intensive care unit on the ventilator. He is not breathing over the ventilator at this time. He has not shown any purposeful movements. He does occasionally open eyes but does not follow any commands. As noted he has remained off of all sedation for 2 days. There is not been any significant improvement in his neurological status in the past 2 days. His last CAT scan of the brain was performed on 03/29/2018 and is noted failed to reveal any acute changes. The patient also developed a temperature today of 100.3. He is currently on Zosyn. His neurological examination today in the intensive care unit reveals him to have intact brainstem reflexes including pupillary responses and corneal response bilaterally. Vestibular ocular responses intact. According to the nursing staff he does have a gag reflex. There is no evidence of any facial asymmetry on examination. The patient does not withdraw to painful stimuli overall 4 extremities. His deep tendon reflexes are hypoactive. Plantar responses flexor bilaterally. According to the ICU nursing staff family is aware of his very poor prognosis. They were considering whether to continue with current ICU management or to consider alternative treatment options given his poor prognosis. We did have a long discussion today with the patient's , brother, and mother and sister who are in the ICU at the time following my neurological assessment. We did discuss his neurological findings in detail and he does have preserved brainstem reflexes. His EEG was reviewed and is moderately severe slowing in the range of 4-5 Hz. We have suggested to the family to consider having a repeat computed tomography scan of the brain done tomorrow for comparison. Given his very young age they would like to continue with all current treatment plans to see if there may be chance for some improvement. We have asked the family to discuss further treatment plans with Dr. Rodriguez in terms of long- term care for this patient. The family is agreeable to have a repeat computed tomography scan of the brain done tomorrow and we will review this with them once the results are available. This patient's overall prognosis at this time remains very guarded. We did discuss all of these findings in detail today with the family at bedside in the ICU setting. We will continue to follow along to see if the patient shows any significant improvement in his neurological status. As noted his overall prognosis at this time remains very guarded. Review of Systems ROS unobtainable: due to endotracheal tube Constitutional: Denies chills, Denies fever Eyes: denies blurred vision, denies pain Ears, nose, mouth and throat: Denies headache, Denies sore throat Cardiovascular: Denies chest pain, Denies shortness of breath Respiratory: Denies cough Gastrointestinal: Denies abdominal pain, Denies diarrhea, Denies nausea, Denies vomiting Musculoskeletal: Denies myalgias Integumentary: Denies pruritus, Denies rash Neurological: Reports change in mentation, Denies numbness, Denies weakness Psychiatric: Denies anxiety, Denies depression Endocrine: Denies fatigue, Denies weight change Past Medical History Past Medical History: Chest Pain / Angina, Hyperlipidemia, Hypertension, Sleep Apnea/CPAP/BIPAP Additional Past Medical History / Comment(s): History of kidney stones. History of Any Multi-Drug Resistant Organisms: None Reported Past Surgical History: Orthopedic Surgery (History of right rotator cuff surgery in 2016.) Additional Past Surgical History / Comment(s): Right shoulder rotator cuff surgery 07/29/2016 Past Anesthesia/Blood Transfusion Reactions: No Reported Reaction Past Psychological History: No Psychological Hx Reported Smoking Status: Never smoker Past Alcohol Use History: Occasional Past Drug Use History: None Reported - Past Family History Brother(s) Family Medical History: Coronary Artery Disease (CAD), Myocardial Infarction ([place] ) (At age 47) Mother Family Medical History: Hypertension, Osteoarthritis (OA) Father Additional Family Medical History / Comment(s): bipolar Medications and Allergies Home Medications Medication Instructions Recorded Confirmed Type Pravastatin Sodium [Pravachol] 20 mg PO HS 03/26/18 03/26/18 History Allergies Allergy/AdvReac Type Severity Reaction Status Date / Time No Known Allergies Allergy Unverified 03/26/18 08:48 Physical Examination - Vital Signs Vital Signs: Vital Signs Temp Pulse Resp BP Pulse Ox 04/01/18 16:28 110 H 04/01/18 16:12 102 H 04/01/18 16:00 102 H 28 H 132/75 95 04/01/18 15:00 100.3 F H 95 28 H 135/81 95 04/01/18 14:00 97 28 H 141/79 94 L 04/01/18 13:00 91 28 H 145/87 94 L 04/01/18 12:00 99 F 89 28 H 176/106 95 04/01/18 11:50 94 04/01/18 11:34 92 04/01/18 11:00 91 28 H 141/81 96 04/01/18 10:00 93 0 L 156/90 94 L 04/01/18 09:00 91 26 H 169/101 94 L 04/01/18 08:00 99 F 97 26 H 164/94 95 04/01/18 07:44 94 04/01/18 07:36 90 04/01/18 07:00 88 26 H 154/92 95 04/01/18 06:00 85 26 H 139/88 94 L 04/01/18 05:00 88 26 H 166/98 95 04/01/18 04:00 99.8 F H 87 26 H 146/86 94 L 04/01/18 03:44 88 04/01/18 03:27 86 04/01/18 03:00 87 26 H 168/106 95 04/01/18 02:00 82 26 H 136/87 95 04/01/18 01:00 93 26 H 154/92 95 04/01/18 00:00 100.8 F H 84 26 H 158/83 94 L 03/31/18 23:47 86 03/31/18 23:45 26 H 03/31/18 23:32 85 03/31/18 23:00 84 26 H 156/92 93 L 03/31/18 22:00 93 26 H 163/91 94 L 03/31/18 21:05 89 26 H 154/88 96 03/31/18 21:00 95 26 H 154/88 95 03/31/18 20:47 96 03/31/18 20:33 97 03/31/18 20:00 99.9 F H 94 26 H 163/92 95 03/31/18 19:00 97 26 H 148/86 95 Intake and Output 04/01/18 04/01/18 04/01/18 06:59 14:59 22:59 Intake Total 970 820 220 Output Total 765 610 90 Balance 205 210 130 Intake: IV 160 160 40 Sodium Chloride 0.9% 1, 160 160 40 000 ml @ 20 mls/hr IV . Q24H [facility] Rx#:[id number] Tube Feeding 750 600 150 Other 60 60 30 Output: Urine 765 610 90 Other: Voiding Method Indwelling Catheter Indwelling Catheter Indwelling Catheter Weight 118.5 kg - Constitutional General appearance: average body habitus - EENT EENT: PERRL, mucous membranes moist - Respiratory Respiratory: lungs clear, normal breath sounds - Cardiovascular Cardiovascular: regular rate, normal S1, normal S2 Extremities: no peripheral edema bilaterally - Gastrointestinal Gastrointestinal: normoactive bowel sounds - Integumentary Integumentary: normal - Neurologic Cranial nerve examination: PERRL, EOMI, V1/V2/V3 grossly intact, face symmetric , tongue midline, intact gag reflex, intact corneal reflex Speech examination: other (Patient is intubated on the ventilator and is unresponsive.) Sensorimotor examination: other (Patient does not withdraw to painful stimuli over all 4 extremities.) Motor examination - right side: 09/25: biceps, triceps, wrist flexion, wrist extension, hospitality house supervisor, hip flexors, knee extensors, dorsiflexion, toe extension (EHL) , plantarflexion Motor examination - left side: 09/25: biceps, triceps, wrist flexion, wrist extension, hospitality house supervisor, hip flexors, knee extensors, dorsiflexion, toe extension (EHL) , plantarflexion Detailed sensory examination: other (Patient does not withdraw to any painful stimuli overall 4 extremities.) Reflex and gait examination: intact Reflexes: 1+: ankle, bicep, knee, tricep - Musculoskeletal Musculoskeletal: no pain Results - Laboratory Findings CBC and BMP: 04/01/18 04:37 04/01/18 04:36 Abnormal Lab Findings: Abnormal Labs 03/26/18 03/26/18 03/26/18 00:20 00:20 00:20 WBC 12.6 H RBC Hgb Hct Neutrophils # 8.7 H Lymphocytes # ABG pH ABG pCO2 ABG pO2 ABG HCO3 ABG Total CO2 ABG O2 Saturation Chloride Carbon Dioxide 18 L BUN Creatinine 1.40 H Glucose 262 H POC Glucose (mg/dL) Phosphorus AST 83 H ALT 79 H Alkaline Phosphatase Total Creatine Kinase 374 H CK-MB (CK-2) 13.0 H* Troponin I 0.959 H* Total Protein 6.2 L Albumin Ur Specific [place] Urine Protein Urine Glucose (UA) Urine Blood Urine RBC Urine WBC Urine Mucus 03/26/18 03/26/18 03/26/18 00:25 01:05 02:48 WBC RBC Hgb Hct Neutrophils # Lymphocytes # ABG pH 7.17 L* ABG pCO2 57 H ABG pO2 ABG HCO3 ABG Total CO2 ABG O2 Saturation Chloride Carbon Dioxide BUN Creatinine Glucose POC Glucose (mg/dL) 230 H 171 H Phosphorus AST ALT Alkaline Phosphatase Total Creatine Kinase CK-MB (CK-2) Troponin I Total Protein Albumin Ur Specific [place] Urine Protein Urine Glucose (UA) Urine Blood Urine RBC Urine WBC Urine Mucus 03/26/18 03/26/18 03/26/18 03:22 03:30 05:52 WBC 17.5 H RBC Hgb Hct Neutrophils # 16.0 H Lymphocytes # 0.5 L ABG pH 7.30 L ABG pCO2 ABG pO2 194 H ABG HCO3 ABG Total CO2 ABG O2 Saturation 99.6 H Chloride Carbon Dioxide BUN Creatinine Glucose POC Glucose (mg/dL) Phosphorus AST ALT Alkaline Phosphatase Total Creatine Kinase CK-MB (CK-2) Troponin I Total Protein Albumin Ur Specific [place] 1.039 H Urine Protein 2+ H Urine Glucose (UA) 1+ H Urine Blood Moderate H Urine RBC 30 H Urine WBC 25 H Urine Mucus Rare H 03/26/18 03/26/18 03/26/18 05:52 05:52 14:11 WBC RBC Hgb Hct Neutrophils # Lymphocytes # ABG pH ABG pCO2 ABG pO2 ABG HCO3 ABG Total CO2 ABG O2 Saturation Chloride 108 H Carbon Dioxide 21 L BUN 22 H Creatinine Glucose 152 H POC Glucose (mg/dL) Phosphorus AST ALT Alkaline Phosphatase Total Creatine Kinase CK-MB (CK-2) Troponin I 11.600 H* 23.300 H* Total Protein Albumin Ur Specific [place] Urine Protein Urine Glucose (UA) Urine Blood Urine RBC Urine WBC Urine Mucus 03/26/18 03/27/18 03/27/18 22:21 04:20 04:20 WBC 13.2 H RBC Hgb Hct Neutrophils # 11.4 H Lymphocytes # 0.7 L ABG pH ABG pCO2 ABG pO2 ABG HCO3 ABG Total CO2 ABG O2 Saturation Chloride Carbon Dioxide BUN Creatinine Glucose 114 H POC Glucose (mg/dL) Phosphorus AST ALT Alkaline Phosphatase Total Creatine Kinase CK-MB (CK-2) Troponin I 33.700 H* Total Protein Albumin Ur Specific [place] Urine Protein Urine Glucose (UA) Urine Blood Urine RBC Urine WBC Urine Mucus 03/27/18 03/28/18 03/28/18 04:56 04:03 04:03 WBC 11.8 H RBC 4.17 L Hgb 11.7 L Hct 36.0 L Neutrophils # 10.0 H Lymphocytes # 0.8 L ABG pH ABG pCO2 ABG pO2 ABG HCO3 ABG Total CO2 26 H ABG O2 Saturation 97.9 H Chloride Carbon Dioxide BUN Creatinine Glucose 111 H POC Glucose (mg/dL) Phosphorus 2.4 L AST ALT Alkaline Phosphatase Total Creatine Kinase CK-MB (CK-2) Troponin I Total Protein Albumin Ur Specific [place] Urine Protein Urine Glucose (UA) Urine Blood Urine RBC Urine WBC Urine Mucus 03/28/18 03/29/18 03/29/18 04:38 03:58 03:58 WBC 10.7 H RBC 3.90 L Hgb 10.9 L Hct 33.8 L Neutrophils # 9.0 H Lymphocytes # 0.7 L ABG pH ABG pCO2 ABG pO2 ABG HCO3 26 H ABG Total CO2 27 H ABG O2 Saturation 98.8 H Chloride 109 H Carbon Dioxide BUN 26 H Creatinine Glucose 119 H POC Glucose (mg/dL) Phosphorus AST ALT Alkaline Phosphatase Total Creatine Kinase CK-MB (CK-2) Troponin I Total Protein Albumin Ur Specific [place] Urine Protein Urine Glucose (UA) Urine Blood Urine RBC Urine WBC Urine Mucus 03/29/18 03/30/18 03/30/18 05:07 04:02 04:02 WBC RBC 3.87 L Hgb 10.9 L Hct 33.9 L Neutrophils # Lymphocytes # 0.7 L ABG pH ABG pCO2 ABG pO2 ABG HCO3 ABG Total CO2 27 H ABG O2 Saturation 97.5 H Chloride 109 H Carbon Dioxide BUN 26 H Creatinine Glucose 115 H POC Glucose (mg/dL) Phosphorus AST ALT Alkaline Phosphatase Total Creatine Kinase CK-MB (CK-2) Troponin I Total Protein Albumin Ur Specific [place] Urine Protein Urine Glucose (UA) Urine Blood Urine RBC Urine WBC Urine Mucus 03/30/18 03/31/18 03/31/18 05:11 04:21 04:21 WBC RBC 3.84 L Hgb 10.9 L Hct 33.5 L Neutrophils # Lymphocytes # 0.6 L ABG pH ABG pCO2 ABG pO2 74 L ABG HCO3 26 H ABG Total CO2 27 H ABG O2 Saturation Chloride 109 H Carbon Dioxide BUN 27 H Creatinine Glucose 131 H POC Glucose (mg/dL) Phosphorus AST ALT Alkaline Phosphatase Total Creatine Kinase CK-MB (CK-2) Troponin I Total Protein Albumin Ur Specific [place] Urine Protein Urine Glucose (UA) Urine Blood Urine RBC Urine WBC Urine Mucus 03/31/18 04/01/18 04/01/18 04:24 04:20 04:36 WBC RBC Hgb Hct Neutrophils # Lymphocytes # ABG pH ABG pCO2 ABG pO2 74 L 78 L ABG HCO3 26 H 28 H ABG Total CO2 27 H 29 H ABG O2 Saturation Chloride Carbon Dioxide BUN 31 H Creatinine Glucose 144 H POC Glucose (mg/dL) Phosphorus AST 91 H ALT 106 H Alkaline Phosphatase 149 H Total Creatine Kinase CK-MB (CK-2) Troponin I Total Protein 5.9 L Albumin 3.1 L Ur Specific [place] Urine Protein Urine Glucose (UA) Urine Blood Urine RBC Urine WBC Urine Mucus 04/01/18 04:37 WBC 11.0 H RBC 4.15 L Hgb 11.9 L Hct 36.2 L Neutrophils # 9.2 H Lymphocytes # 0.7 L ABG pH ABG pCO2 ABG pO2 ABG HCO3 ABG Total CO2 ABG O2 Saturation Chloride Carbon Dioxide BUN Creatinine Glucose POC Glucose (mg/dL) Phosphorus AST ALT Alkaline Phosphatase Total Creatine Kinase CK-MB (CK-2) Troponin I Total Protein Albumin Ur Specific [place] Urine Protein Urine Glucose (UA) Urine Blood Urine RBC Urine WBC Urine Mucus Assessment and Plan (1) Cardiac arrest Current Visit: Yes Status: Acute Code(s): I46.9 - CARDIAC ARREST, CAUSE UNSPECIFIED SNOMED Code(s): 122346489 (2) Anoxic encephalopathy Current Visit: Yes Status: Acute Code(s): G93.1 - ANOXIC BRAIN DAMAGE, NOT ELSEWHERE CLASSIFIED SNOMED Code(s): 958448578 (3) Acute myocardial infarction Current Visit: Yes Status: Acute Code(s): I21.9 - ACUTE MYOCARDIAL INFARCTION, UNSPECIFIED SNOMED Code(s): 67571561 (4) Family history of premature CAD Current Visit: Yes Status: Acute Code(s): Z82.49 - FAMILY HX OF ISCHEM HEART DIS AND OTH DIS OF THE CIRC SYS SNOMED Code(s): 952823041 Plan: This neurology consultation was requested today by Dr. Rodriguez for second opinion regarding this patient's neurological status. Patient was admitted to Hospital on 03/26/2018 following acute inferior wall myocardial infarction with subsequent cardiac arrest. Patient had a prolonged downtime 45 minutes. He was intubated and taken directly to the cardiac label tacker where he underwent emergency cardiac catheterization. Two cardiac stents were placed into the RCA. He was started on Brilinta and cardiology has been following him. Dr. Varela's had seen the patient on 03/26/[address] scans of the brain and 2 EEGs have been completed. Dr. Varela is out of the country and Dr. Rodriguez requested neurological evaluation for the patient today. We did our full and detailed neurological assessment of this patient in the intensive care unit today. He is day #6 following cardiac arrest and has been off of all sedation for 2 days. Review of his CAT scans of the brain revealed no acute findings. Both of his EEGs reveal diffuse severe slowing of the EEG background consistent with a moderate to severe anoxic encephalopathy following cardiac arrest. We have recommended a follow-up computed tomography scan of the brain to be done tomorrow. We have discussed all of this patient's neurological findings and neurological exam findings in detail with the family at bedside today in the intensive care unit. All of their questions were answered to the best of my ability. His was updated on his neurological exam findings which revealed him to have intact brainstem reflexes. He has not shown any significant improvement in his neurological status for the past 2 days despite being off of all sedation. He is not withdrawing to pain. As noted his EEG does reveal severe slowing consistent with anoxic encephalopathy. We have discussed all of these findings in detail with the patient's and other family members today. They would like to continue close monitoring and supportive care of the patient at this time. We will obtain a follow-up computed tomography scan of the brain tomorrow for comparison. We did discuss his prognosis at this time which remains very poor given his multiple complex medical issues. The is aware and will continue close follow-up with multiple specialists including Dr. Rodriguez in terms of further treatment plans and her wishes for his further care. His overall prognosis at this time remains very guarded. Time with Patient: Greater than 30
[2018-04-01] MEDS: ATORVASTATIN 80 MG TAB PO SCH (20:57)
[2018-04-02] MEDS: HYDROmorphone 0.5 MG/0.5 ML SYRINGE IVP PRN ×4 (02:42→22:52)
[2018-04-02] MEDS: IPRATROPIUM-ALBUTEROL 3 ML NEB INHALATION SCH ×6 (03:22→23:24)
[2018-04-02 04:42] LABS: ABG Base Excess 3.7 mmol/L; ABG HCO3 28 mmol/L (21-25); ABG Oxygen Saturation 96.6 % (94-97); ABG PCO2 40 mmHg (35-45); ABG PH 7.45 (7.35-7.45); ABG PO2 79 mmHg (83-108); ABG TCO2 29 mmol/L (19-24)
[2018-04-02] MEDS: ACETAMINOPHEN TAB 500 MG TAB PO PRN (04:54)
[2018-04-02 05:03] LABS: Basophils % (A) 0 %; Eosinophils # (A) 0.2 k/uL (0-0.7); Eosinophils % (A) 2 %; HCT 38.5 % (39.0-53.0); HGB 12.4 gm/dL (13.0-17.5); Lymphocytes # (A) 0.8 k/uL (1.0-4.8); Lymphocytes % (A) 6 %; MCHC 32.2 g/dL (31.0-37.0); MCV 87.2 fL (80.0-100.0); Mean Platelet Volume 7.3; Monocytes % (A) 8 %; Neutrophils # (A) 10.4 k/uL (1.3-7.7); Neutrophils % (A) 81 %; Platelet Count 340 k/uL (150-450); RBC 4.41 m/uL (4.30-5.90); RDW 13.3 % (11.5-15.5); WBC 12.8 k/uL (3.8-10.6)
[2018-04-02 05:19] LABS: ALT 155 U/L (21-72); AST 132 U/L (17-59); Albumin 3.2 g/dL (3.5-5.0); Alkaline Phosphatase 185 U/L (38-126); Anion Gap 12 mmol/L; Blood Urea Nitrogen 39 mg/dL (9-20); Calcium 9.2 mg/dL (8.4-10.2); Carbon Dioxide 23 mmol/L (22-30); Chloride 110 mmol/L (98-107); Glucose 132 mg/dL (74-99); Magnesium 2.4 mg/dL (1.6-2.3); Phosphorus 3.8 mg/dL (2.5-4.5); Potassium 4.3 mmol/L (3.5-5.1); Sodium 145 mmol/L (137-145); Total Bilirubin 0.5 mg/dL (0.2-1.3)
[2018-04-02 05:21] LABS: INR 1.1 (<1.2); Prothrombin Time 10.9 sec (9.0-12.0)
--- NOTE | 2018-04-02 07:45 | P.PN ---
Progress Note - Text Progress Note Date: 04/02/18 The patient continues to be intubated on ventilator. The distal debate with the family regarding PEG and trach tube or going come forth care. Repeated EEG revealed moderate to severe encephalopathy and possible anoxic encephalopathy. The neuro team met the family yesterday and the family did not beside yet. Hemodynamically the patient continues to be stable. The blood pressure and heart rate are within normal limits. He continues to be on dual antiplatelet therapy along with high intensity statin.
--- NOTE | 2018-04-02 09:13 | P.PN ---
Subjective Date of service: 04/01/2018 Mr. Pollard is a 48-year-old with a past medical history of hypertension, hyperlipidemia admitted after having cardiopulmonary arrest at home. Before EMS arrived the patient was resuscitated for 10-15 minutes. His initial rhythm was probably V. tach followed by bradycardia and patient had CPR done for around 40 minutes before he got to sinus rhythm. Subsequently upon arrival to [facility] he was taken to the [facility] where he underwent a cardiac catheterization which demonstrated mild nonobstructive disease to his left anterior descending coronary artery, a 70-80% lesion to his circumflex coronary artery, and a totally occluded mid right coronary artery. Patient also underwent successful stenting of his right coronary artery with 2 drug- eluting stents deployed. Currently the patient remains intubated with mechanical ventilator support and is currently sedated on Diprivan drip. Sedation holidays have been attempted and after a few hours of being off sedation the patient becomes agitated and asynchronous with mechanical ventilator support. According to the patient's he has not been responding to noxious stimuli when off the sedation. Subsequently due to patient not being able to tolerate weaning trials and sedation holidays a request has been placed to Dr. Somers from cardiothoracic surgery to evaluate the patient for a tracheostomy and PEG tube placement. Patient has also been started on tube feeds. EEG revealed moderate to severe encephalopathy. review of systems: N/A due to pt condition 03/31/2018 Patient still in the ICU. He is still intubated. He was given a trial of sedation since morning and patient still nonresponsive to verbal stimuli. And he is responding to sternal rub my only partial blink. Pupils still slightly dilated but they are reactive to light. He spiking low-grade temperature 100. Still considering the plan for PEG/tracheostomy placement by other consultants and family 04/01/2018 Pt is still spiking fever, CXR: possible infiltrate and pt was started on zosyn , sputum culture: strep pyogen. pt has mild leukocytosis, mentation still the same, infection might contribute to metabolic encephalopathy on the top of anoxic encephalopathy. pt is still on dual anti-platelet therapy. neurologist evaluating the pt and recommended repeat CT of head. review of systems: N/A due to pt condition Objective - Vital Signs Vital signs: Vital Signs Temp 99.3 F 04/02/18 08:00 Pulse 98 04/02/18 08:00 Resp 26 H 04/02/18 08:00 BP 145/90 04/02/18 08:00 Pulse Ox 95 04/02/18 08:00 Intake & Output 04/01/18 04/02/18 04/02/18 18:59 06:59 18:59 Intake Total 1230 1675.0 170 Output Total 820 1165 100 Balance 410 510.0 70 Weight 116.9 kg Intake: IV 240 310.0 20 Piperacillin-Tazobactam 3 50.0 .375 gm In Dextrose/Water 1 50ml.bag @ 12.5 mls/hr IVPB Q8HR JANAE Rx#: [id number] Sodium Chloride 0.9% 1, 240 260 20 000 ml @ 20 mls/hr IV . Q24H JANAE Rx#:[id number] Tube Feeding 900 1275 150 Other 90 90 Output: Urine 820 1165 100 Other: Voiding Method Indwelling Catheter Indwelling Catheter Indwelling Catheter - Exam No acute distress, nonresponsive, endotracheal tube and NG tube are in place HEENT examination is grossly unremarkable. Mucous membranes are moist. No oral lesions. Pupils are dilated Cardiovascular examination reveals regular rhythm rate. S1-S2 normal. No S3 or S4. No murmur. Lungs: B/L CTA. A few scattered rhonchi noted. Abdomen soft, NT, ND, Positive bowel sounds Extremities. No edema or induration . Skin is without rash or lesion. Neurologic examination: pt is non-responsive. He does have a gag reflex. No response to verbal or painful stimuli. Pupils are dilated. He does not withdraw to deep painful stimulati. He Does not respond to any verbal stimulation. No nystagmus. No facial asymmetry. - Labs CBC & Chem 7: 04/02/18 04:45 04/02/18 04:45 Labs: Abnormal Lab Results - Last 24 Hours (Table) 04/02/18 04/02/18 04/02/18 Range/Units 04:40 04:45 04:45 WBC 12.8 H (3.8-10.6) k/uL Hgb 12.4 L (13.0-17.5) gm/dL Hct 38.5 L (39.0-53.0) % Neutrophils # 10.4 H (1.3-7.7) k/uL Lymphocytes # 0.8 L (1.0-4.8) k/uL ABG pO2 79 L (83-108) mmHg ABG HCO3 28 H (21-25) mmol/L ABG Total CO2 29 H (19-24) mmol/L Chloride 110 H (98-107) mmol/L BUN 39 H (9-20) mg/dL Glucose 132 H (74-99) mg/dL Magnesium 2.4 H (1.6-2.3) mg/dL AST 132 H (17-59) U/L ALT 155 H (21-72) U/L Alkaline Phosphatase 185 H (38-126) U/L Total Protein 6.0 L (6.3-8.2) g/dL Albumin 3.2 L (3.5-5.0) g/dL Microbiology - Last 24 Hours (Table) 04/01/18 01:39 Blood Culture - Preliminary Blood No Growth after 24 hours 04/01/18 01:11 Blood Culture - Preliminary Blood No Growth after 24 hours 03/31/18 00:21 Gram Stain - Preliminary Sputum Sputum Culture - Preliminary Strep pyogenes (grp a) Assessment and Plan Assessment: cardiac arrest at home , Status post cardiopulmonary resuscitation severe Encephalopathy - due to anoxic brain injury acute SD, inferior STEMI - right coronary artery completely occluded, s/p 2 drug eluting stenting Acute respiratory failure. on vent systemic inflammatory response syndrome sepsis with possible pna Acute renal failure -secondary to SD Hyperlipidemia Hypertension Obesity with BMI of 37 Plan: Plan: Patient to be continued on mechanical ventilation. He has been started on tube feeds. Patient had an EEG done showing moderate to severe encephalopathy. repeat CT of head. We will have to wait and watch for neurological improvement . neurology , cardiology , and pulmonary/ Intensive care specialists are following the pt. But overall prognosis is very poor. Patient's family aware of the situation-discussion about trach and PEG tube placement ongoing at this point.
--- NOTE | 2018-04-02 09:14 | CT ---
EXAMINATION TYPE: CT brain wo con DATE OF EXAM: 04/02/2018 COMPARISON: 03/29/2018 HISTORY: Patient with anoxic brain injury and comatose. Follow up study. CT DLP: 1075.[address] of the brain was performed. There is decreased attenuation throughout the frontal and parietal lobes compatible with bilateral ce rebral edema. Posterior fossa appears to be spared. No evidence for intracranial hemorrhage at this t dick. No mass effects are seen. No midline shift or herniation identified. Osseous calvarium is intact. If symptoms persist consider MRI as clinically warranted. IMPRESSION: 1. There is decreased attenuation throughout the frontal and parietal lobes compatible with bilatera l cerebral edema. Posterior fossa appears to be spared.
[2018-04-02] MEDS: PIPERACILLIN-TAZOBACTAM 3.375 GM in DEXTROSE/WATER 1 50ML.BAG IVPB SCH ×2 (09:20→17:31)
[2018-04-02] MEDS: TICAGRELOR 90 MG TAB PO SCH ×2 (09:20→09:21)
[2018-04-02] MEDS: CHLORHEXIDINE GLUCONATE 15 ML CUP MUCOUS MEM SCH ×2 (09:21→20:33)
[2018-04-02] MEDS: METOPROLOL TARTRATE 25 MG TAB PO SCH ×3 (09:21→21:59)
[2018-04-02] MEDS: LOSARTAN 50 MG TAB PO SCH (09:21)
[2018-04-02] MEDS: ASPIRIN 81 MG PO SCH (09:21)
[2018-04-02] MEDS: PANTOPRAZOLE 40 MG/10 ML VIAL IV SCH (09:21)
[2018-04-02] MEDS: HEPARIN SODIUM,PORCINE 5,000 UNIT/ML 1 ML VIAL SQ SCH ×2 (09:21→17:31)
[2018-04-02 09:43] VITALS: BMI 36.9
--- NOTE | 2018-04-02 10:00 | XR ---
EXAMINATION TYPE: XR chest 1V portable DATE OF EXAM: 04/02/2018 COMPARISON: Prior chest x-ray 04/01/2018 HISTORY: Intubated TECHNIQUE: Single frontal view of the chest is obtained. FINDINGS: Endotracheal tube and NG tube are overlying appropriate positions. Patchy basilar density is present, there may be some improvement in aeration, patient is rotated. There are overlying cardia c leads. No evident pneumothorax or pleural effusion. IMPRESSION: There is some improvement in aeration. Additional follow-up recommended.
[2018-04-02] MEDS ORDERED: DEXAMETHASONE SOD PHOSPHATE 10 MG/ML 1 ML VIAL IV STA (10:21)
--- NOTE | 2018-04-02 12:53 | P.PN ---
Subjective Progress Note Date: 04/02/18 A 48-year-old male patient with status post acute inferior wall myocardial infarction with a subsequent cardiac arrest that was prolonged and the patient is currently in the intensive care unit and the active problem remains altered mental status and possibly hypoxic encephalopathy. The patient as mentioned was taken to the [facility] Bike [facility]ic and the patient underwent emergent cardiac catheterization and 2 stents were inserted in the RCA. The emergent management of the acute ST segment elevation myocardial infarction was performed. The patient however was kept intubated on a mechanical ventilator knowing that he did not demonstrate adequate neurologic recovery. He is currently on assist control mode of ventilation at the rate of 26, FiO2 of 40% with a PEEP of 5 and a tidal volume of 450. The patient also has history of hypertension, hyperlipidemia and obstructive sleep apnea. Over the past 24 hours the patient did not show any significant neurologic recovery and the patient is being seen today on a follow-up On today's evaluation of 03/29/2018, the patient was taken off sedation. After few hours of being off the sedation the patient started bucking on the tube and he was becoming asynchronous with a mechanical ventilator and based on that the sedation was restarted at 30 mics of the prevent. Hemodynamically he is doing extremely well. Making adequate urine output. He is afebrile. No signs of respiratory distress. Neurologically, the patient does not respond or withdrawal to deep painful stimuli. No seizure activity has been noted. He has abdominal were looking gaze. Pupils are equal and reactive to light. He does cough. He does bike on the tube. He is able to tolerate his tube feeds without any major difficulties. The chest x-ray showed adequate positioning of the ET tube and NG tube. The blood gases from today showed a pH of 7.45 with a pCO2 of 36 and pO2 of 83. Rest of the blood work and electrodes are all within normal limits. On 03/30/2018, I'm seeing this patient for a follow-up. He will be given another sedation holiday. This is a daily thing I will monitoring his neurologic functions on a daily basis. As the patient was taken off Diprivan this morning, I examined him and the patient did not respond to any deep painful stimuli noted was following any commands. His Babinski's are still adequate vocal and lower extremities. No stiffness. No hyperreflexia. Pupils are equal and symmetrical around 3-4 mm in size and there is no nystagmus or preferential gaze on today's evaluation. He has a weak but present cough. CAT scan of the brain was repeated yesterday and not show any acute abnormalities. From the hemodynamic standpoint, the patient is very much stable. He is maintaining his own blood pressure. His rhythm is sinus. He has an adequate urine output. The patient is on a mechanical ventilator. He is an assist- control mode of ventilation with a tidal volume 450, an FiO2 of 40% with a PEEP of 5 and a respiratory rate of 26. At times he was found to be double stacking on a mechanical ventilator. He is tidal volume was brought up to 500 and he seems to much more comfortable on this current setting. He is afebrile. He is on a combination of aspirin and Brilinta in regards to his coronary stents. I have consulted cardiac thoracic surgery regarding possibility of doing a PEG and trach at a later stage thinking that this will be a prolonged respiratory failure. There is a concern that the patient may not be able to have this procedure was done 9 that he is on the door combination of antiplatelet agents including Brilinta. This sounded that needs to be further discussed with cardiology and the surgeon was going to perform these procedures for long-term care. On 03/31/2018 the patient is being seen for a follow-up. The patient has been off sedation for the past 24 hours. I was able to get this patient off Diprivan. Unfortunately there has been no signs or changes in his neurologic functions at all. The patient remains completely unresponsive and comatose. He does not respond to deep painful stimulation. He will occasionally opens up his eyes spontaneously and he does have a preferential gaze upwards. Clinically , the patient does not have any seizures. No purposeful body activity. Still on a mechanical ventilator assist control mode at the rate of 26 with a tidal volume of 500 and FiO2 of 35% and a PEEP of 5. The chest x-ray from today shows lung volumes are low and this is some increased airspace disease in the lung bases more so on the right. The patient was having increased respiratory secretions and sputum sent for cultures. His white cell count is not elevated at 8.4. He did have a low-grade temperature 100.3 yesterday and currently is afebrile at 99.0. The blood from today showed a pH of 7.44 with a pCO2 of 38 and pO2 of 74 and he is still on FiO2 of 35% and there is no worsening in his oxygenation over the past 24 hours. Hemodynamically stable. Still on a normal saline infusion at the rate of 75 mL an hour. Developed some increased edema in lower extremities bilaterally. There is also some puffiness in the upper extremities especially in the hands. He remains on aspirin, Brilinta, metoprolol, losartan. A repeat EEG was done today and we are still waiting for the final interpretation by neurology. On 04/01/2018 the patient remains intubated on a mechanical ventilator. Essentially no change in his condition. Off sedation. Neurologically impaired and comatose unresponsive to any verbal or painful stimulation. On one occasion the patient had a decerebrate posture. He is having low-grade fever. Chest x-ray raises the concern for a right lower lobe pneumonia and the patient will be started on broad-spectrum antibiotics with IV Zosyn. Sputum cultures also showing strep species group A. White cell count is not elevated. The blood gases showed a pH of 7.4 with a pCO2 of 41 and pO2 of 78 on a 35% FiO2. EEG is showing generalized slowing mostly in the range and there is no evidence of any epileptiform focus and overall there is no change in the EEG findings compared to the one that was done on 03/26/2018. He was dynamically stable. Producing adequate urine output. Tolerating tube feeds. On 04/02/2018 no major change in the patient's condition. The patient was seen by neurology and the repeat CAT scan of the head was done which showed some edema bilateral and based on that the patient was started on Decadron per neurology's recommendation. Noted the patient had another evaluation, Dr. Cruz in regards to his anoxic encephalopathy. The patient remains on a mechanical ventilator. No change in the vent setting. He is on 35% FiO2. His showed pH of 7.45 with a pCO2 of 40 and pO2 of 79. His chest x-ray from today showed improvement in aeration of the right lung. ET tube remains in a good location. Neurologically completely unresponsive and comatose does not respond to any deep painful stimulation. No seizure activity. Tolerating his tube feeds. Objective - Vital Signs Vital signs: Vital Signs Temp 99.3 F 04/02/18 08:00 Pulse 82 04/02/18 11:37 Resp 26 H 04/02/18 11:27 BP 129/75 04/02/18 11:00 Pulse Ox 96 04/02/18 11:00 Intake & Output 04/01/18 04/02/18 04/02/18 18:59 06:59 18:59 Intake Total 1230 1675.0 280 Output Total 820 1165 300 Balance 410 510.0 -20 Weight 116.9 kg 116.9 kg Intake: IV 240 310.0 130 Piperacillin-Tazobactam 3 50.0 50 .375 gm In Dextrose/Water 1 50ml.bag @ 12.5 mls/hr IVPB Q8HR JANAE Rx#: [id number] Sodium Chloride 0.9% 1, 240 260 80 000 ml @ 20 mls/hr IV . Q24H JANAE Rx#:[id number] Tube Feeding 900 1275 150 Other 90 90 Output: Urine 820 1165 300 Other: Voiding Method Indwelling Catheter Indwelling Catheter Indwelling Catheter - Exam No acute distress, nonresponsive, with an orally placed endotracheal tube and NG tube.. HEENT examination is grossly unremarkable. Mucous membranes are moist. No oral lesions. Pupils are dilated and sluggish. Neck supple. Full range of motion. No adenopathy thyromegaly or neck vein distention. Cardiovascular examination reveals regular rhythm rate. S1-S2 normal. No S3 or S4. No discernible murmur noted. Lungs reveal mostly clear. A few scattered rhonchi noted. Breath sounds equal bilaterally. Abdomen soft bowel sounds are heard. No masses or tenderness. Extremities are intact. No cyanosis clubbing or edema. Skin is without rash or lesion. Neurologic examination is unchanged. Patient is and deep coma. Nonresponsive to any painful stimulation. Cranial nerves are grossly intact. No facial asymmetry. Tongue in the midline. Intact gag and corneal reflex. Motor function cannot be assessed. Sensory function cannot be assessed. Reflexes are +1 symmetrical 4 extremities and no Babinski. - Labs CBC & Chem 7: 04/02/18 04:45 04/02/18 04:45 Labs: Abnormal Lab Results - Last 24 Hours (Table) 04/02/18 04/02/18 04/02/18 Range/Units 04:40 04:45 04:45 WBC 12.8 H (3.8-10.6) k/uL Hgb 12.4 L (13.0-17.5) gm/dL Hct 38.5 L (39.0-53.0) % Neutrophils # 10.4 H (1.3-7.7) k/uL Lymphocytes # 0.8 L (1.0-4.8) k/uL ABG pO2 79 L (83-108) mmHg ABG HCO3 28 H (21-25) mmol/L ABG Total CO2 29 H (19-24) mmol/L Chloride 110 H (98-107) mmol/L BUN 39 H (9-20) mg/dL Glucose 132 H (74-99) mg/dL Magnesium 2.4 H (1.6-2.3) mg/dL AST 132 H (17-59) U/L ALT 155 H (21-72) U/L Alkaline Phosphatase 185 H (38-126) U/L Total Protein 6.0 L (6.3-8.2) g/dL Albumin 3.2 L (3.5-5.0) g/dL Microbiology - Last 24 Hours (Table) 04/01/18 01:39 Blood Culture - Preliminary Blood No Growth after 24 hours 04/01/18 01:11 Blood Culture - Preliminary Blood No Growth after 24 hours 03/31/18 00:21 Gram Stain - Preliminary Sputum Sputum Culture - Preliminary Strep pyogenes (grp a) Assessment and Plan Plan: Assessment [address] segment elevation myocardial infarction status post emergent cardiac catheterization and stenting of the RCA 2 out of hospital cardiopulmonary arrest with a prolonged downtime of 45 minutes with subsequent return of spontaneous circulation. 3 comatose state secondary to anoxic encephalopathy, and the CAT scan is showing cerebral edema and the patient is currently on Decadron. Neurology on the case. No signs of neurologic recovery and the patient is currently on no sedation I remains completely unresponsive. 4 acute respiratory failure secondary to above. The patient remains intubated on a mechanical ventilator, but a chest x-ray showing limited infiltrate in the lung bases bilaterally, possibly atelectatic changes versus fluid. The sputum analysis showed group B strep and the patient was started on IV Zosyn today the patient's chest x-ray showing improvement in aeration of the right lung. The patient is afebrile hemodynamically stable. 5 hyperlipidemia 6 obesity with a BMI of 38.6 7 obstructive sleep apnea 8 hypertension 9 right lower lobe pneumonia suspected cultures are positive for strep group B and the patient is currently on IV Zosyn. Plan The patient is not showing any signs of neurologic recovery. He remains deeply comatose. Continue Decadron. Continue vent support. Continue enteral nutritional support. The family is contemplating to withdraw support versus long-term vent and for the second option the patient will need a tracheostomy tube. If the patient's family decided to go with a second option, I'm going to stop the Brilinta elevated of the next 5-6 days would proceed with a PEG and trach. Prognosis extremely poor. Neurologist consultation and input is greatly Shared. We'll continue to follow. Time with Patient: Greater than 30
[2018-04-02] MEDS: DEXAMETHASONE SOD PHOSPHATE 4 MG/ML 1 ML VIAL IV SCH (17:32)
[2018-04-02] MEDS: SODIUM CHLORIDE 0.9% 1,000 ML IV SCH (17:33)
--- NOTE | 2018-04-02 19:25 | P.PN ---
Subjective Progress Note Date: 04/02/18 This patient is a 48-year-old right-handed white male who suffered an acute inferior wall myocardial infarction with subsequent cardiac arrest and prolonged downtime. Patient had extensive downtime of 45 minutes before he was resuscitated. He was intubated and taken directly to the cardiac optical laboratory mechanic on admission were he underwent cardiac catheterization with 2 stents placed to the RCA coronary artery. He was then transferred to the intensive care unit. Neurology was consulted yesterday for follow-up neurological assessment. He was initially evaluated neurologically by Dr. Varela [place]. This is our second neurological evaluation of this patient in the intensive care unit since yesterday. We did have an extensive evaluation yesterday of his neurological status and did have a long discussion with the patient's , mother, brother, and sister. We went over all of his studies as of yesterday which included 2 CT scans of the brain and 2 EEG reports. All of these findings are consistent with a severe anoxic encephalopathy following cardiac arrest. His neurological examination was also discussed in detail with the yesterday in the intensive care unit. He has been off of all sedation now for 3 days with no change in his neurological status. We did recommend the patient to have a follow-up computed tomography scan of the brain today for comparison and help with long-term prognosis. CAT scan of the brain was done today 04/02/2018. The final report indicates decreased attenuation throughout the frontal and parietal lobes compatible with bilateral cerebral edema. Posterior fossa appeared spared. Following this CAT scan report the patient was immediately started on intravenous Decadron. This is to treat the cerebral edema. This CAT scan finding showing cerebral edema is highly suggesting of severe anoxic encephalopathy with progression of worsening prognosis. We did have a long discussion today in the intensive care unit with the patient's and mother as well as brother. We did go over the results of the CAT scan of the brain that was done today. This finding is suggesting worsening neurological prognosis for this patient consistent with severe anoxic encephalopathy. We explained to the family that this CAT scan finding is once again I poor prognostic sign. Given his extensive downtime of 45 minutes his likelihood of complete recovery to normal neurological function is very poor at this time. The family is still considering whether to withdraw medical support versus long-term any treatment with tracheostomy and PEG tube placement for the patient. We have asked the family to discuss this further with Dr. Rodriguez to get his expert opinion as well. The likelihood of this patient to have full recovery neurologically given the severity and extent of his anoxic encephalopathy is very poor at this time. According to the ICU nurse today the patient has been given Dilaudid as he does have some muscle twitching and wincing of his facial muscle. It is unclear if this is pain related. He does seem to respond to the Dilaudid) does fairly well for 3-4 hours around-the- clock. This case was discussed today at length with Dr. Rodriguez. He states he will await the family decision in regards to further treatment plans and long -term management. Dr. Rodriguez states if the family elects to move forward with tracheostomy and PEG tube placement the patient will have to be taken off of Brilinta for 5-6 days and then proceed with trach and PEG placement with cardiothoracic surgery. We have recommended to the family that we will continue neurological follow-up for the patient in the intensive care unit. We will be available if there is any further questions that they may have. We have discussed this patient's overall condition and prognosis in detail with Dr. Rodriguez who is in full agreement with our current management plans. He will await further decision from the family in regards to long-term management of this patient. Once again we have reinforced with the family that his overall prognosis at this time remains extremely poor. We will continue to follow along with multiple specialists that are seeing this patient. As noted his overall prognosis remains very guarded. Objective - Vital Signs Vital signs: Vital Signs Temp 99.3 F 04/02/18 08:00 Pulse 98 04/02/18 16:09 Resp 26 H 04/02/18 15:00 BP 151/86 04/02/18 15:00 Pulse Ox 94 L 04/02/18 15:00 Intake & Output 04/01/18 04/02/18 04/02/18 18:59 06:59 18:59 Intake Total 1230 1675.0 810 Output Total 820 1165 625 Balance 410 510.0 185 Weight 116.9 kg 116.9 kg Intake: IV 240 310.0 210 Piperacillin-Tazobactam 3 50.0 50 .375 gm In Dextrose/Water 1 50ml.bag @ 12.5 mls/hr IVPB Q8HR [facility] Rx#: [id number] Sodium Chloride 0.9% 1, 240 260 160 000 ml @ 20 mls/hr IV . Q24H [facility] Rx#:[id number] Tube Feeding 900 1275 600 Other 90 90 Output: Urine 820 1165 625 Other: Voiding Method Indwelling Catheter Indwelling Catheter Indwelling Catheter - Exam Physical examination: PHYSICAL EXAMINATION: Patient remains intubated on the ventilator and is comatose and unresponsive. There is been no significant change in his overall neurological status since yesterday. VITAL SIGNS: Blood pressure is [151/86]. Heart rate is [96]. Respiration is [26] . Temperature is [99.3]. HEENT: Head is atraumatic, neck is supple, there were no carotid bruits. CHEST: Lungs are clear to auscultation and percussion. CARDIAC: S1, S2 normal rate and rhythm. There is no murmur. ABDOMEN: Soft and nontender. Bowel sounds are present. EXTREMITIES: There is no pedal edema. Peripheral pulses are present. Neurological examination: Patient remains intubated on the ventilator and is comatose. Patient remains off of all sedation for past 3 days. He has occasional muscle grimacing. Cranial nerve examination: His pupils are sluggishly reactive to light. Corneal responses intact bilaterally. He does have a gag reflex. Oculocephalic response is intact. Motor examination: Patient does not withdraw to painful stimuli overall 4 extremities to deep pain. Deep tendon reflexes: The DTRs are hypoactive. Plantar responses flexor bilaterally. Neurological examination is unchanged from yesterday. - Labs CBC & Chem 7: 04/02/18 04:45 04/02/18 04:45 Labs: Abnormal Lab Results - Last 24 Hours (Table) 04/02/18 04/02/18 04/02/18 Range/Units 04:40 04:45 04:45 WBC 12.8 H (3.8-10.6) k/uL Hgb 12.4 L (13.0-17.5) gm/dL Hct 38.5 L (39.0-53.0) % Neutrophils # 10.4 H (1.3-7.7) k/uL Lymphocytes # 0.8 L (1.0-4.8) k/uL ABG pO2 79 L (83-108) mmHg ABG HCO3 28 H (21-25) mmol/L ABG Total CO2 29 H (19-24) mmol/L Chloride 110 H (98-107) mmol/L BUN 39 H (9-20) mg/dL Glucose 132 H (74-99) mg/dL Magnesium 2.4 H (1.6-2.3) mg/dL AST 132 H (17-59) U/L ALT 155 H (21-72) U/L Alkaline Phosphatase 185 H (38-126) U/L Total Protein 6.0 L (6.3-8.2) g/dL Albumin 3.2 L (3.5-5.0) g/dL Microbiology - Last 24 Hours (Table) 03/31/18 00:21 Gram Stain - Final Sputum Sputum Culture - Final Strep pyogenes (grp a) 04/01/18 01:39 Blood Culture - Preliminary Blood No Growth after 24 hours 04/01/18 01:11 Blood Culture - Preliminary Blood No Growth after 24 hours Assessment and Plan (1) Cardiac arrest Current Visit: Yes Status: Acute Code(s): I46.9 - CARDIAC ARREST, CAUSE UNSPECIFIED SNOMED Code(s): 149790583 (2) Anoxic encephalopathy Current Visit: Yes Status: Acute Code(s): G93.1 - ANOXIC BRAIN DAMAGE, NOT ELSEWHERE CLASSIFIED SNOMED Code(s): 710525063 (3) Acute myocardial infarction Current Visit: Yes Status: Acute Code(s): I21.9 - ACUTE MYOCARDIAL INFARCTION, UNSPECIFIED SNOMED Code(s): 99101557 (4) Family history of premature CAD Current Visit: Yes Status: Acute Code(s): Z82.49 - FAMILY HX OF ISCHEM HEART DIS AND OTH DIS OF THE CIRC SYS SNOMED Code(s): 641998622 Plan: This patient is a 48-year-old right-handed white male who suffered an acute inferior wall myocardial infarction with subsequent cardiac arrest with prolonged downtime. Patient was down for at least 45 minutes before pulse was obtained. He required intubation and was immediately brought into the hospital and went straight to the cardiac Human Resources Operations Coordinator for cardiac catheterization. He had 2 stents placed to the RCA. He was intubated and transferred up to the intensive care unit and has remained in the ICU now since admission on 2017. Neurology was consulted yesterday for second opinion regarding his neurological status. We reviewed all of this neurological exam findings and test results in detail with the entire family yesterday in the intensive care unit. There continuing all supportive care for the patient and are discussing various long-term treatment plans for the patient. His neurological exam yesterday was consistent with severe anoxic encephalopathy following cardiac arrest. He did have maintain brainstem reflexes on examination yesterday. We discussed with the patient's , mother, brother, and sister yesterday in detail all of his neurological findings and overall assessment as of yesterday. We did recommend a follow-up computed tomography scan of the brain to be done today for comparison. CAT scan of the brain was completed today and revealed evidence of bilateral cerebral edema in the frontal and parietal lobes bilaterally. The patient was started on IV Decadron for treatment of the cerebral edema. This was felt to be a very poor prognostic sign in terms of this patient's long-term outlook. We did discuss the results of the CAT scan today with the entire family in the intensive care unit. There still waiting to make a decision in terms of further medical management in this patient's case. We have mentioned to the that we would be available if there is any further questions that she may have. We will continue close neurological follow -up for the patient in the intensive care unit. Once again his overall prognosis at this time is extremely poor. Case was discussed today with Dr. negron and in terms of the CAT scan of the brain report and he is also aware of our recommendations and discussion with the family yesterday and today. We will continue close neurological follow-up for this patient during this admission.
[2018-04-02] MEDS: ATORVASTATIN 80 MG TAB PO SCH (20:33)
[2018-04-03] MEDS: HEPARIN SODIUM,PORCINE 5,000 UNIT/ML 1 ML VIAL SQ SCH ×2 (01:19→08:44)
[2018-04-03] MEDS: DEXAMETHASONE SOD PHOSPHATE 4 MG/ML 1 ML VIAL IV SCH ×3 (01:19→12:57)
[2018-04-03] MEDS: PIPERACILLIN-TAZOBACTAM 3.375 GM in DEXTROSE/WATER 1 50ML.BAG IVPB SCH ×2 (01:23→08:43)
[2018-04-03] MEDS: IPRATROPIUM-ALBUTEROL 3 ML NEB INHALATION SCH ×3 (03:34→12:08)
[2018-04-03 04:43] LABS: ABG Base Excess 4.8 mmol/L; ABG HCO3 28 mmol/L (21-25); ABG Oxygen Saturation 94.3 % (94-97); ABG PCO2 38 mmHg (35-45); ABG PH 7.49 (7.35-7.45); ABG PO2 66 mmHg (83-108); ABG TCO2 29 mmol/L (19-24)
[2018-04-03 05:16] LABS: Basophils % (A) 0 %; Eosinophils % (A) 0 %; HCT 39.6 % (39.0-53.0); HGB 12.9 gm/dL (13.0-17.5); Lymphocytes # (A) 0.7 k/uL (1.0-4.8); Lymphocytes % (A) 5 %; MCH 28.2 pg (25.0-35.0); MCHC 32.5 g/dL (31.0-37.0); MCV 86.7 fL (80.0-100.0); Mean Platelet Volume 7.5; Monocytes % (A) 7 %; Neutrophils # (A) 12.5 k/uL (1.3-7.7); Neutrophils % (A) 85 %; Platelet Count 368 k/uL (150-450); RBC 4.56 m/uL (4.30-5.90); RDW 13.2 % (11.5-15.5); WBC 14.7 k/uL (3.8-10.6)
[2018-04-03] MEDS: HYDROmorphone 0.5 MG/0.5 ML SYRINGE IVP PRN ×2 (05:32→09:12)
[2018-04-03 05:37] LABS: INR 1.1 (<1.2)
[2018-04-03 05:41] LABS: Albumin 3.4 g/dL (3.5-5.0); Anion Gap 10 mmol/L; Calcium 9.3 mg/dL (8.4-10.2); Carbon Dioxide 26 mmol/L (22-30); Chloride 110 mmol/L (98-107); Glucose 124 mg/dL (74-99); Sodium 146 mmol/L (137-145); Total Bilirubin 0.6 mg/dL (0.2-1.3); Total Protein 6.5 g/dL (6.3-8.2)
[2018-04-03 05:55] LABS: ALT 166 U/L (21-72); AST 119 U/L (17-59); Alkaline Phosphatase 182 U/L (38-126); Blood Urea Nitrogen 46 mg/dL (9-20); Magnesium 2.5 mg/dL (1.6-2.3); Potassium 5.1 mmol/L (3.5-5.1)
--- NOTE | 2018-04-03 06:51 | XR ---
EXAMINATION TYPE: XR chest 1V portable DATE OF EXAM: 04/03/2018 HISTORY: vent management. REFERENCE: Previous study dated 04/02/2018. FINDINGS: The patient is ET tube and NG tube remain in place, unchanged in appearance. There is some left basilar airspace disease. There is a small left effusion. The right lung is clear. Heart size is normal. IMPRESSION: 1. CONTINUING LEFT BASILAR AIRSPACE DISEASE. 2. SMALL LEFT EFFUSION.
[2018-04-03 07:12] VITALS: RESP 26
[2018-04-03] MEDS: METOPROLOL TARTRATE 25 MG TAB PO SCH (08:44)
[2018-04-03] MEDS: ASPIRIN 81 MG PO SCH (08:45)
[2018-04-03] MEDS: LOSARTAN 50 MG TAB PO SCH (08:45)
[2018-04-03] MEDS: PANTOPRAZOLE 40 MG/10 ML VIAL IV SCH (08:45)
[2018-04-03] MEDS: TICAGRELOR 90 MG TAB PO SCH (08:45)
[2018-04-03] MEDS: CHLORHEXIDINE GLUCONATE 15 ML CUP MUCOUS MEM SCH (08:45)
[2018-04-03] MEDS ORDERED: MORPHINE SULFATE 4 MG/ML SYRINGE IVP ONE (12:02)
[2018-04-03] MEDS ORDERED: MORPHINE SULFATE 2 MG/ML SYRINGE IV PRN (12:02)
[2018-04-03] MEDS ORDERED: ATROPINE OPHTH SOLN 1% 5ML BTL SUBLINGUAL PRN (12:02)
[2018-04-03] MEDS ORDERED: LORazepam 2 MG/ML INJ IV PRN (12:02)
[2018-04-03] MEDS ORDERED: MORPHINE SULFATE 4 MG/ML SYRINGE IV PRN (12:02)
[2018-04-03 12:12] VITALS: TEMP 99.9
[2018-04-03] MEDS ORDERED: MORPHINE SULFATE (100 MG/2 ML) 100 MG in SODIUM CHLORIDE 0.9% 100 ML IV SCH (12:15)
[2018-04-03] MEDS ORDERED: GLYCOPYRROLATE 0.2 MG/ML 2 ML VIAL IVP PRN (12:18)
--- NOTE | 2018-04-03 14:34 | P.PN ---
Subjective Progress Note Date: 04/03/18 A 48-year-old male patient with status post acute inferior wall myocardial infarction with a subsequent cardiac arrest that was prolonged and the patient is currently in the intensive care unit and the active problem remains altered mental status and possibly hypoxic encephalopathy. The patient as mentioned was taken to the Electrical Designer Drafter and the patient underwent emergent cardiac catheterization and 2 stents were inserted in the RCA. The emergent management of the acute ST segment elevation myocardial infarction was performed. The patient however was kept intubated on a mechanical ventilator knowing that he did not demonstrate adequate neurologic recovery. He is currently on assist control mode of ventilation at the rate of 26, FiO2 of 40% with a PEEP of 5 and a tidal volume of 450. The patient also has history of hypertension, hyperlipidemia and obstructive sleep apnea. Over the past 24 hours the patient did not show any significant neurologic recovery and the patient is being seen today on a follow-up On today's evaluation of 03/29/2018, the patient was taken off sedation. After few hours of being off the sedation the patient started bucking on the tube and he was becoming asynchronous with a mechanical ventilator and based on that the sedation was restarted at 30 mics of the prevent. Hemodynamically he is doing extremely well. Making adequate urine output. He is afebrile. No signs of respiratory distress. Neurologically, the patient does not respond or withdrawal to deep painful stimuli. No seizure activity has been noted. He has abdominal were looking gaze. Pupils are equal and reactive to light. He does cough. He does bike on the tube. He is able to tolerate his tube feeds without any major difficulties. The chest x-ray showed adequate positioning of the ET tube and NG tube. The blood gases from today showed a pH of 7.45 with a pCO2 of 36 and pO2 of 83. Rest of the blood work and electrodes are all within normal limits. On 03/30/2018, I'm seeing this patient for a follow-up. He will be given another sedation holiday. This is a daily thing I will monitoring his neurologic functions on a daily basis. As the patient was taken off Diprivan this morning, I examined him and the patient did not respond to any deep painful stimuli noted was following any commands. His Babinski's are still adequate vocal and lower extremities. No stiffness. No hyperreflexia. Pupils are equal and symmetrical around 3-4 mm in size and there is no nystagmus or preferential gaze on today's evaluation. He has a weak but present cough. CAT scan of the brain was repeated yesterday and not show any acute abnormalities. From the hemodynamic standpoint, the patient is very much stable. He is maintaining his own blood pressure. His rhythm is sinus. He has an adequate urine output. The patient is on a mechanical ventilator. He is an assist- control mode of ventilation with a tidal volume 450, an FiO2 of 40% with a PEEP of 5 and a respiratory rate of 26. At times he was found to be double stacking on a mechanical ventilator. He is tidal volume was brought up to 500 and he seems to much more comfortable on this current setting. He is afebrile. He is on a combination of aspirin and Brilinta in regards to his coronary stents. I have consulted cardiac thoracic surgery regarding possibility of doing a PEG and trach at a later stage thinking that this will be a prolonged respiratory failure. There is a concern that the patient may not be able to have this procedure was done 9 that he is on the door combination of antiplatelet agents including Brilinta. This sounded that needs to be further discussed with cardiology and the surgeon was going to perform these procedures for long-term care. On 03/31/2018 the patient is being seen for a follow-up. The patient has been off sedation for the past 24 hours. I was able to get this patient off Diprivan. Unfortunately there has been no signs or changes in his neurologic functions at all. The patient remains completely unresponsive and comatose. He does not respond to deep painful stimulation. He will occasionally opens up his eyes spontaneously and he does have a preferential gaze upwards. Clinically , the patient does not have any seizures. No purposeful body activity. Still on a mechanical ventilator assist control mode at the rate of 26 with a tidal volume of 500 and FiO2 of 35% and a PEEP of 5. The chest x-ray from today shows lung volumes are low and this is some increased airspace disease in the lung bases more so on the right. The patient was having increased respiratory secretions and sputum sent for cultures. His white cell count is not elevated at 8.4. He did have a low-grade temperature 100.3 yesterday and currently is afebrile at 99.0. The blood from today showed a pH of 7.44 with a pCO2 of 38 and pO2 of 74 and he is still on FiO2 of 35% and there is no worsening in his oxygenation over the past 24 hours. Hemodynamically stable. Still on a normal saline infusion at the rate of 75 mL an hour. Developed some increased edema in lower extremities bilaterally. There is also some puffiness in the upper extremities especially in the hands. He remains on aspirin, Brilinta, metoprolol, losartan. A repeat EEG was done today and we are still waiting for the final interpretation by neurology. On 04/01/2018 the patient remains intubated on a mechanical ventilator. Essentially no change in his condition. Off sedation. Neurologically impaired and comatose unresponsive to any verbal or painful stimulation. On one occasion the patient had a decerebrate posture. He is having low-grade fever. Chest x-ray raises the concern for a right lower lobe pneumonia and the patient will be started on broad-spectrum antibiotics with IV Zosyn. Sputum cultures also showing strep species group A. White cell count is not elevated. The blood gases showed a pH of 7.4 with a pCO2 of 41 and pO2 of 78 on a 35% FiO2. EEG is showing generalized slowing mostly in the range and there is no evidence of any epileptiform focus and overall there is no change in the EEG findings compared to the one that was done on 03/26/2018. He was dynamically stable. Producing adequate urine output. Tolerating tube feeds. On 04/02/2018 no major change in the patient's condition. The patient was seen by neurology and the repeat CAT scan of the head was done which showed some edema bilateral and based on that the patient was started on Decadron per neurology's recommendation. Noted the patient had another evaluation, Dr. Cruz in regards to his anoxic encephalopathy. The patient remains on a mechanical ventilator. No change in the vent setting. He is on 35% FiO2. His showed pH of 7.45 with a pCO2 of 40 and pO2 of 79. His chest x-ray from today showed improvement in aeration of the right lung. ET tube remains in a good location. Neurologically completely unresponsive and comatose does not respond to any deep painful stimulation. No seizure activity. Tolerating his tube feeds. On 04/03/2018, patient remains the same. No neurological progress. Deeply comatose. Unresponsive. Had a lengthy discussion with the patient's family. I met the mother and a brother. I've also ordered a spoken do to the on separate occasions. I think the general trend is to proceed with comfort care measures and the family is seeking terminal wean and comfort measures accordingly. If the left was contacted. Meanwhile, the patient remains hemodynamics is stable. He is afebrile. Chest x-ray shows a small left basilar airspace disease and small left-sided pleural effusion. On and off the patient is having low-grade fever. His echo is at 14.7 rest of the blood work showing some mild liver dysfunction with elevation of the AST and ALT, otherwise no other significant abnormalities have been noted. No seizure activity. He remains on Decadron. Objective - Vital Signs Vital signs: Vital Signs Temp 99.9 F H 04/03/18 12:00 Pulse 85 04/03/18 12:00 Resp 26 H 04/03/18 12:00 BP 111/73 04/03/18 12:00 Pulse Ox 94 L 04/03/18 12:00 Intake & Output 04/02/18 04/03/18 04/03/18 18:59 06:59 18:59 Intake Total 1350 1415.0 470.187 Output Total 950 965 410 Balance 400 450.0 60.187 Weight 116.9 kg 113.7 kg Intake: IV 300 275.0 170.0 Piperacillin-Tazobactam 3 100 75.0 50.0 .375 gm In Dextrose/Water 1 50ml.bag @ 12.5 mls/hr IVPB Q8HR [facility] Rx#: [id number] Sodium Chloride 0.9% 1, 200 200 120 000 ml @ 20 mls/hr IV . Q24H [facility] Rx#:[id number] Intake, IV Titration 0.187 Amount Morphine Sulfate (100 mg/ 0.187 2 ml) 100 mg In Sodium Chloride 0.9% 100 ml @ 1 MG/HR 1.02 mls/hr IV . Q24H [facility] Rx#:[id number] Tube Feeding 1050 1050 300 Other 90 Output: Urine 950 965 410 Other: Voiding Method Indwelling Catheter Indwelling Catheter Indwelling Catheter - Exam No acute distress, nonresponsive, with an orally placed endotracheal tube and NG tube.. HEENT examination is grossly unremarkable. Mucous membranes are moist. No oral lesions. Pupils are dilated and sluggish. Neck supple. Full range of motion. No adenopathy thyromegaly or neck vein distention. Cardiovascular examination reveals regular rhythm rate. S1-S2 normal. No S3 or S4. No discernible murmur noted. Lungs reveal mostly clear. A few scattered rhonchi noted. Breath sounds equal bilaterally. Abdomen soft bowel sounds are heard. No masses or tenderness. Extremities are intact. No cyanosis clubbing or edema. Skin is without rash or lesion. Neurologic examination is unchanged. Patient is and deep coma. Nonresponsive to any painful stimulation. Cranial nerves are grossly intact. No facial asymmetry. Tongue in the midline. Intact gag and corneal reflex. Motor function cannot be assessed. Sensory function cannot be assessed. Reflexes are +1 symmetrical 4 extremities and no Babinski. - Labs CBC & Chem 7: 04/03/18 04:51 04/03/18 04:51 Labs: Abnormal Lab Results - Last 24 Hours (Table) 04/03/18 04/03/18 04/03/18 Range/Units 04:39 04:51 04:51 WBC 14.7 H (3.8-10.6) k/uL Hgb 12.9 L (13.0-17.5) gm/dL Neutrophils # 12.5 H (1.3-7.7) k/uL Lymphocytes # 0.7 L (1.0-4.8) k/uL ABG pH 7.49 H (7.35-7.45) ABG pO2 66 L (83-108) mmHg ABG HCO3 28 H (21-25) mmol/L ABG Total CO2 29 H (19-24) mmol/L Sodium 146 H (137-145) mmol/L Chloride 110 H (98-107) mmol/L BUN 46 H (9-20) mg/dL Glucose 124 H (74-99) mg/dL Magnesium 2.5 H (1.6-2.3) mg/dL AST 119 H (17-59) U/L ALT 166 H (21-72) U/L Alkaline Phosphatase 182 H (38-126) U/L Albumin 3.4 L (3.5-5.0) g/dL Microbiology - Last 24 Hours (Table) 04/01/18 01:39 Blood Culture - Preliminary Blood No Growth after 48 hours 04/01/18 01:11 Blood Culture - Preliminary Blood No Growth after 48 hours 03/31/18 00:21 Gram Stain - Final Sputum Sputum Culture - Final Strep pyogenes (grp a) Assessment and Plan Plan: Assessment [address] segment elevation myocardial infarction status post emergent cardiac catheterization and stenting of the RCA 2 out of hospital cardiopulmonary arrest with a prolonged downtime of 45 minutes with subsequent return of spontaneous circulation. 3 comatose state secondary to anoxic encephalopathy, the patient has cerebral edema. The patient remains on Decadron. No neurological progress or improvement at least over the past 5 days. 4 acute respiratory failure secondary to above. The patient remains intubated on a mechanical ventilator, but a chest x-ray showing limited infiltrate in the lung bases bilaterally, possibly atelectatic changes versus fluid. The sputum analysis showed group B strep and the patient was started on IV Zosyn today the patient's chest x-ray showing improvement in aeration of the right lung. The patient is afebrile hemodynamically stable. 5 hyperlipidemia 6 obesity with a BMI of 38.6 7 obstructive sleep apnea 8 hypertension 9 right lower lobe pneumonia suspected cultures are positive for strep group B and the patient is currently on IV Zosyn. Plan The prognosis remains extremely poor. Family is trending terminal wean and comfort care measures. Meanwhile, continue the supportive care. We'll proceed with terminal wean was the family is ready and 1 to proceed with that option.
[2018-04-03 14:59] VITALS: BP 99/61; PULSE 83
--- NOTE | 2018-04-05 15:50 | CDI ---
Last Revision, August 2017 Documentation Clarification Form Date: 04/05/18 From: Kaelyn Waite Phone: If you have a question regarding this query, please contact Jen Piña at [phone] between 8am and 5pm. Admit Date: 03/26/2018 1:18:00 AM Patient Name: Akira Pollard Visit Number: [id number] Discharge Date: 04/03/18 ATTENTION: The Clinical Documentation Specialists (CDI) and [facility] Coding Staff appreciate your assistance in clarifying documentation. Please respond to the clarification below the line at the bottom and electronically sign. The CDI & [facility] Coding staff will review the response and follow-up if needed. Please note: Queries are made part of the Legal Health Record. If you have any questions, please contact the author of this message via ITS. Dr. Melina Rodriguez Pneumonia was documented in your notes beginning on 03/31/18: History/Risk Factors: Patiente was admitted for cardiac arrest secondary to STEMI with acute respiratory failure requiring mechanical ventilation. Patient also had acute renal failure, anoxic encephalopathy and was comatose. Clinical Indicators: Fever. WBC/Left shift: 12.6 on admission then dropped to 8.7 on 03/31 and went back up to 11.0 on 04/01, 12.8 on 04/02 and 14.7 on 04/03. Left shift of 8.7 on 03/26, down to 6.8 on 03/31 and up to 9.2 on 04/01, 10.4 on and 12.5 on 04/03 X-ray: 03/31 - lung volumes are low and there is possible increasing airspace disease, correlate for pulmonary edema versus atelectaiss, pneumonia. 04/01 - expiratory exam, probably basilar atelectasis, correlate to exclude pneumonia. Lung/Breathing assessment Treatment: Antibiotics: IV Zosyn, O2: Mechanical ventilation In order to capture the severity of condition, please clarify if the condition signifies and you are treating for: Aspiration Pneumonia, identify if: Due to solids or liquids Due to anesthesia during L/D Due to anesthesia during puerperium Ventilator Associated Pneumonia Healthcare Acquired Pneumonia/Pneumonia, unspecified Other, please specify Unable to determine [employer] PNEUMONIA, LIKELY MTDD
== END 2018-04-03 15:00 | disposition hospice, inpatient (51) | DRG 246 ==
LOC: EC 00:20 → 6ICU 01:18
PROVIDERS: ADMIT Internal Medicine; ATTEND Internal Medicine
PROC: B2111ZZ Fluoroscopy of Multiple Coronary Arteries using Low Osmolar Contrast (ICD-10-PCS; 2018-03-26)
PROC: 027035Z Dilation of Coronary Artery, One Artery with Two Drug-eluting Intraluminal Devices, Percutaneous Approach (ICD-10-PCS; principal; 2018-03-26 00:58)
PROC: 4A023N7 Measurement of Cardiac Sampling and Pressure, Left Heart, Percutaneous Approach (ICD-10-PCS; 2018-03-26 00:58)
PROC: 5A1955Z Respiratory Ventilation, Greater than 96 Consecutive Hours (ICD-10-PCS; 2018-03-27)
PROC: 0BH17EZ Insertion of Endotracheal Airway into Trachea, Via Natural or Artificial Opening (ICD-10-PCS; 2018-03-27)
DX: I21.19 ST elevation (STEMI) myocardial infarction involving other coronary artery of inferior wall (principal); A41.9 Sepsis, unspecified organism; G93.41 Metabolic encephalopathy; G93.6 Cerebral edema; J96.01 Acute respiratory failure with hypoxia; R40.20 Unspecified coma; J15.3 Pneumonia due to streptococcus, group B; E87.2 Acidosis; G93.1 Anoxic brain damage, not elsewhere classified; J90 Pleural effusion, not elsewhere classified; N17.9 Acute kidney failure, unspecified; J95.851 Ventilator associated pneumonia; Z51.5 Encounter for palliative care; B95.1 Streptococcus, group B, as the cause of diseases classified elsewhere; I25.10 Atherosclerotic heart disease of native coronary artery without angina pectoris; R32 Unspecified urinary incontinence; E66.01 Morbid (severe) obesity due to excess calories; E78.5 Hyperlipidemia, unspecified; G47.33 Obstructive sleep apnea (adult) (pediatric); I10 Essential (primary) hypertension; Z86.74 Personal history of sudden cardiac arrest; I95.9 Hypotension, unspecified; R00.1 Bradycardia, unspecified; Z68.38 Body mass index [BMI] 38.0-38.9, adult; Z79.899 Other long term (current) drug therapy; Z87.442 Personal history of urinary calculi; Z82.49 Family history of ischemic heart disease and other diseases of the circulatory system; Z81.8 Family history of other mental and behavioral disorders; Z82.61 Family history of arthritis; Z91.19 Patient's noncompliance with other medical treatment and regimen
CPT/HCPCS: 31500; 36415; 36600; 51702; 70450; 71045; 80048; 80053; 81001; 82533; 82550; 82553; 82805; 83735; 84100; 84484; 85025; 85610; 85730; 87040; 87070; 87077; 87086; 87186; 87205; 93005; 93306; 93458; 94002; 94003; 94640; 95816; 95819; 96374; 99291

== ENCOUNTER 2018-04-03 13:53 | Inpatient (IN) | payer MEDICAID ==
[2018-04-03] MEDS ORDERED: ATROPINE OPHTH SOLN 1% 5ML BTL SUBLINGUAL PRN (14:29)
[2018-04-03] MEDS ORDERED: BISACODYL 10 MG SUPP RECTAL PRN (14:29)
[2018-04-03] MEDS ORDERED: MORPHINE SULFATE 4 MG/ML SYRINGE IV PRN (14:29)
[2018-04-03] MEDS ORDERED: LORazepam 2 MG/ML INJ IV PRN (14:29)
[2018-04-03] MEDS ORDERED: SCOPOLAMINE 1.5MG/72HR PATCH TRANSDERM PRN (14:29)
[2018-04-03] MEDS ORDERED: ARTIFICIAL TEARS-HYPROMELLOSE DROPS 15 ML BTL BOTH EYES PRN (14:29)
[2018-04-03] MEDS ORDERED: ONDANSETRON 4 MG/2 ML VIAL IVP PRN (14:29)
[2018-04-03] MEDS ORDERED: HYOSCYAMINE SULFATE 0.125 MG TAB PO PRN (14:29)
[2018-04-03 15:30] VITALS: BMI 35.9
[2018-04-03] MEDS: MORPHINE SULFATE (100 MG/2 ML) 100 MG in SODIUM CHLORIDE 0.9% 100 ML IV SCH ×2 (15:35→19:02)
--- NOTE | 2018-04-03 16:47 | P.PN ---
Subjective Progress Note Date: 04/03/18 Principal diagnosis: Acute inferior wall [place] with cardiac arrest 48-year-old male patient with acute inferior wall [place] with cardiac arrest was admitted to ICU; patient was taken to the Furniture Assembler and underwent emergent cardiac catheterization with 2 stents placement; post procedure patient remained intubated on mechanical ventilation 04/03/2018 Patient remains intubated and in ICU; remains unresponsive; per vocational instructor discussion with multiple family members patient is for terminal seen by family wishes; patient will be on comfort measures Objective - Vital Signs Vital signs: Intake & Output 04/02/18 04/03/18 04/03/18 18:59 06:59 18:59 Weight 113.7 kg - Exam Patient remains unresponsive and has ET/ NG tube in place HEENT examination; remains unchanged Cardiovascular examination; regular rate and rhythm; no murmurs noted Lungs are grossly clear to auscultate Abdomen soft and obese bowel sounds are positive Extremities are intact with no gross edema clubbing or cyanosis Neurological examination; patient remains unresponsive and comatose Assessment and Plan Assessment: 1. Acute ST elevation [place] status post cardiac catheterization and stenting of RCA 2. Out of hospital cardiopulmonary arrest with prolonged down time of 45 minutes with subsequent RO SC 3. Anoxic encephalopathy; with cerebral edema; patient has been on Decadron 4. Acute respiratory failure; remains intubated As indicated above family has decided for comfort measures and terminal wean Time with Patient: Less than 30
[2018-04-03 18:14] VITALS: BP 111/70; PULSE 91; RESP 11
[2018-04-03] MEDS: GLYCOPYRROLATE 0.2 MG/ML 2 ML VIAL IVP PRN (18:16)
[2018-04-04] MEDS: MORPHINE SULFATE (100 MG/2 ML) 100 MG in SODIUM CHLORIDE 0.9% 100 ML IV SCH ×3 (02:49→18:36)
[2018-04-04] MEDS: GLYCOPYRROLATE 0.2 MG/ML 2 ML VIAL IVP PRN ×2 (02:49→11:32)
--- NOTE | 2018-04-04 16:47 | P.PN ---
Subjective Progress Note Date: 04/04/18 Principal diagnosis: Acute inferior wall [place] with cardiac arrest 48-year-old male patient with acute inferior wall [place] with cardiac arrest was admitted to ICU; patient was taken to the Supervisory Geographer and underwent emergent cardiac catheterization with 2 stents placement; post procedure patient remained intubated on mechanical ventilation 04/03/2018 Patient remains intubated and in ICU; remains unresponsive; per pantry attendant discussion with multiple family members patient is for terminal seen by family wishes; patient will be on comfort measures 04/04/2018 Patient is transferred to medical floor; he remains unresponsive and exhibiting agonal breathing; patient is discussed in detail with nursing staff; hospice is consulted; no family members present in the Objective - Vital Signs Vital signs: Vital Signs Temp Pulse 91 04/03/18 18:12 Resp 11 L 04/03/18 18:12 BP 111/70 04/03/18 18:12 Pulse Ox 88 L 04/03/18 17:04 Intake & Output 04/03/18 04/04/18 04/04/18 18:59 06:59 18:59 Intake Total 314.785 102 Balance 314.785 102 Weight 113.7 kg Intake: IV 160 0.9 160 Intake, IV Titration 154.785 102 Amount Morphine Sulfate (100 mg/ 154.785 102 2 ml) 100 mg In Sodium Chloride 0.9% 100 ml @ 5 MG/HR 5.1 mls/hr IV .Q20H [facility] Rx#:[id number] Other: Voiding Method Indwelling Catheter Indwelling Catheter - Exam Patient remains unresponsive and has ET/ NG tube in place HEENT examination; remains unchanged Cardiovascular examination; regular rate and rhythm; no murmurs noted Lungs are grossly clear to auscultate Abdomen soft and obese bowel sounds are positive Extremities are intact with no gross edema clubbing or cyanosis Neurological examination; patient remains unresponsive and comatose Assessment and Plan Assessment: 1. Acute ST elevation [place] status post cardiac catheterization and stenting of RCA 2. Out of hospital cardiopulmonary arrest with prolonged down time of 45 minutes with subsequent RO SC 3. Anoxic encephalopathy; with cerebral edema; patient has been on Decadron 4. Acute respiratory failure; remains intubated As indicated above family has decided for comfort measures and terminal wean; hospice is consulted. Time with Patient: Less than 30
== END 2018-04-04 18:55 | disposition expired ==
LOC: 6ICU 15:10 → 5ONC 19:23
PROVIDERS: ADMIT Internal Medicine; ATTEND Internal Medicine
PROC: 5A1945Z Respiratory Ventilation, 24-96 Consecutive Hours (ICD-10-PCS; principal; 2018-04-03)
PROC: 0BH17EZ Insertion of Endotracheal Airway into Trachea, Via Natural or Artificial Opening (ICD-10-PCS; 2018-04-03)
DX: I21.19 ST elevation (STEMI) myocardial infarction involving other coronary artery of inferior wall (principal); G93.6 Cerebral edema; J96.00 Acute respiratory failure, unspecified whether with hypoxia or hypercapnia; G93.1 Anoxic brain damage, not elsewhere classified; I47.2 Ventricular tachycardia; I25.10 Atherosclerotic heart disease of native coronary artery without angina pectoris; Z95.5 Presence of coronary angioplasty implant and graft; I46.9 Cardiac arrest, cause unspecified; Z51.5 Encounter for palliative care; E66.9 Obesity, unspecified; Z82.49 Family history of ischemic heart disease and other diseases of the circulatory system; I10 Essential (primary) hypertension; G47.30 Sleep apnea, unspecified